=== PATIENT | female | born 1965 | race Two or more races ===

== ENCOUNTER → 2020-09-22 10:05 | Outpatient (BNVA) | payer MEDICAID, SELFPAY | PROVIDERS: PCP Internal Medicine; Visit Provider Anesthesiology | DX: M96.1 Postlaminectomy syndrome, not elsewhere classified (principal); M51.36 Other intervertebral disc degeneration, lumbar region; M47.27 Other spondylosis with radiculopathy, lumbosacral region; Z79.891 Long term (current) use of opiate analgesic | CPT/HCPCS: 99214 ==

== ENCOUNTER 2020-10-31 09:05 | Outpatient (REF) | payer MEDICAID, SELFPAY ==
--- NOTE | 2020-10-31 09:20 | XR_ITS ---
EXAMINATION: XR SHOULDER, LEFT CLINICAL INFORMATION: Left shoulder pain COMPARISON: None TECHNIQUE: The left shoulder is imaged in 4 views. FINDINGS: There is no fracture, dislocation, or destructive process. The acromioclavicular alignment is normal. The glenohumeral joint is unremarkable. There are no visible rotator cuff calcifications. There are mild degenerative changes acromioclavicular joint. XR/XR shoulder LT min 2V IMPRESSION: Mild degenerative changes acromioclavicular joint.
== END 2020-10-31 09:06 | disposition home or self-care (01) ==
LOC: HO.XRAY 09:05
PROVIDERS: PCP Family Medicine; Visit Provider Family Medicine
DX: M25.512 Pain in left shoulder (principal)
CPT/HCPCS: 73030

== ENCOUNTER → 2020-11-02 09:30 | Outpatient (BNVA) | payer MEDICAID, SELFPAY | PROVIDERS: PCP Family Medicine; Visit Provider Anesthesiology | DX: M96.1 Postlaminectomy syndrome, not elsewhere classified (principal); M51.36 Other intervertebral disc degeneration, lumbar region; M47.27 Other spondylosis with radiculopathy, lumbosacral region; Z79.891 Long term (current) use of opiate analgesic | CPT/HCPCS: 99212 ==

== ENCOUNTER 2020-12-21 08:56 | Outpatient (REF) | payer MEDICAID, SELFPAY ==
--- NOTE | 2020-12-21 09:15 | EMG_ITS ---
HISTORY OF PRESENT ILLNESS: This is a 55-year-old woman with bilateral hand pain and numbness for many years, mostly pain. She is currently on no medications. PHYSICAL EXAMINATION: On examination, she is alert and oriented with normal intellectual functions. Cranial nerves II through XII are normal. Muscle tone and strength are normal in all 4 extremities. Deep tendon reflexes symmetrical, 2+ plantar responses flexor. No Tinel or Phalen sign. IMPRESSION: Rule out carpal tunnel syndrome, rule out cervical radiculopathy. Nerve conduction EMG study: Normal electrodiagnostic study of the left upper extremity with no evidence of carpal tunnel syndrome or nerve entrapment. Normal EMG of the left C5-T1 innervated muscles. MD BEV Chaudhary/DARA / [id number]
== END 2020-12-21 08:57 | disposition home or self-care (01) ==
LOC: HO.NEURO 08:56
PROVIDERS: PCP Family Medicine; Visit Provider Family Medicine
DX: M25.512 Pain in left shoulder (principal)
CPT/HCPCS: 95886; 95910

== ENCOUNTER → 2021-05-25 10:02 | Outpatient (BNVA) | payer MEDICAID, SELFPAY | PROVIDERS: PCP Family Medicine; Visit Provider Urology | DX: R32 Unspecified urinary incontinence (principal) | CPT/HCPCS: 99202 ==

== ENCOUNTER → 2022-01-31 12:56 | Outpatient (BNVA) | payer MEDICAID, SELFPAY | PROVIDERS: PCP Family Medicine; Visit Provider Anesthesiology | DX: M96.1 Postlaminectomy syndrome, not elsewhere classified (principal); M51.36 Other intervertebral disc degeneration, lumbar region; M47.27 Other spondylosis with radiculopathy, lumbosacral region; M19.019 Primary osteoarthritis, unspecified shoulder | CPT/HCPCS: 99212 ==

== ENCOUNTER → 2022-05-29 15:29 | Outpatient (BNVA) | payer MEDICAID, SELFPAY | PROVIDERS: PCP Family Medicine; Visit Provider Surgery Vascular Surgery | DX: I83.12 Varicose veins of left lower extremity with inflammation (principal) | CPT/HCPCS: 99202 ==

== ENCOUNTER 2022-07-23 12:54 | Outpatient (REF) | payer MEDICAID, SELFPAY ==
--- NOTE | ~2022-07-23 | US_ITS ---
EXAMINATION: US LOWER EXTREMITY VENOUS (REFLUX EXAM), BILATERAL CLINICAL INDICATION: Chronic venous insufficiency with varicose veins COMPARISON: None. TECHNIQUE: Color flow triplex imaging and compression Doppler was performed to evaluate both the deep and the superficial systems bilaterally. To evaluate the superficial system, the examination was performed in the upright position. Color-flow Doppler ultrasound and compression ultrasound were utilized. In addition, maneuvers were utilized to demonstrate reflux. FINDINGS: 1. DEEP VENOUS ULTRASOUND OF THE RIGHT LOWER EXTREMITY: Common Femoral Vein: Compressible, normal respiratory variation and augmented flow. Femoral Vein: Compressible, normal color flow and augmentation. Popliteal Vein: Compressible, normal augmentation. Deep Reflux: There is no evidence of reflux in the deep system in either the common femoral vein or the popliteal vein. There is no evidence of a Lakhani's cyst. 2. SUPERFICIAL ULTRASOUND WITH DOPPLER OF RIGHT LOWER EXTREMITY: GREAT SAPHENOUS VEIN: Saphenofemoral Junction: 0.5 cm; Reflux: 0 ms Proximal Thigh: 0.4 cm; Reflux: 0 ms Mid Thigh: 0.4 cm; Reflux: 3000 ms Above Knee: 0.3 cm; Reflux: 0 ms At Knee: 0.3 cm; Reflux: 0 ms Below Knee: 0.5 cm; Reflux: 1552 ms Mid Calf: 0.2 cm; Reflux: 0 ms Ankle: 0.2 cm; Reflux: 0 ms DUPLICATED MEDIAL GREAT SAPHENOUS VEIN: Diameter: None Imaged Reflux: NA DUPLICATED LATERAL GREAT SAPHENOUS VEIN: Diameter: 0.3 Reflux: 3108 SMALL SAPHENOUS VEIN: Proximal: 0.2 cm; Reflux: 0 ms Distal: 0.3 cm; Reflux: 0 ms VEIN OF GIACOMINI: None Imaged. PERFORATORS: Location: Thigh and calf Size: 0.2 cm Reflux: None VARICOSITIES: Location: Thigh and calf Size: Ranging from 0.1 to 0.3 cm Reflux: Greater than 3000 ms 3. DEEP VENOUS ULTRASOUND OF THE LEFT LOWER EXTREMITY: Common Femoral Vein: Compressible, normal respiratory variation and augmented flow. Femoral Vein: Compressible, normal color flow and augmentation. Popliteal Vein: Chronic wall adherent calcification consistent with prior thrombosis with near complete compression. No acute thrombus seen Deep Reflux: There is no evidence of reflux in the deep system in either the common femoral vein or the popliteal vein. There is no evidence of a Lakhani's cyst. 4. SUPERFICIAL ULTRASOUND WITH DOPPLER OF LEFT LOWER EXTREMITY: GREAT SAPHENOUS VEIN: Saphenofemoral Junction: 0.6 cm; Reflux: 0 ms Proximal Thigh: 0.3 cm; Reflux: 0 ms Mid Thigh: 0.4 cm; Reflux: 3068 ms Above Knee: 0.4 cm; Reflux: 3280 ms At Knee: 0.2 cm; Reflux: 0 ms Below Knee: 0.1 cm; Reflux: 808 ms Mid Calf: 0.1 cm; Reflux: 0 ms Ankle: 0.1 cm; Reflux: 0 ms DUPLICATED MEDIAL GREAT SAPHENOUS VEIN: Diameter: None Imaged Reflux: NA DUPLICATED LATERAL GREAT SAPHENOUS VEIN: Diameter: 0.2 cm Reflux: None SMALL SAPHENOUS VEIN: Proximal: 0.1 cm; Reflux: 0 ms Distal: 0.3 cm; Reflux: 0 ms VEIN OF GIACOMINI: None Imaged. PERFORATORS: Location: Thigh and calf Size: 0.2 cm Reflux: None VARICOSITIES: Location: Saphenofemoral junction, thigh and knee Size: Ranging from 0.4 to 0.6 cm Reflux: All greater than 3000 ms US/US venous duplex LE BI IMPRESSION: Right: Focal segmental reflux in the right great saphenous vein at the mid to thigh and below knee calf. Severe reflux in a lateral duplicated great saphenous vein. Scattered varicosities in the thigh and calf with severe reflux Left: Segmental reflux in the left great saphenous vein in the thigh and below knee calf. Multiple varicosities in the thigh and calf with severe reflux. Note is made of wall calcifications in the left popliteal vein likely from a prior thrombosis. No acute deep venous thrombosis seen
== END 2022-07-23 12:55 | disposition home or self-care (01) ==
LOC: HO.US 12:54
PROVIDERS: Visit Provider Surgery Vascular Surgery
DX: I83.12 Varicose veins of left lower extremity with inflammation (principal)
CPT/HCPCS: 93970

== ENCOUNTER → 2022-07-31 11:48 | Outpatient (BNVA) | payer MEDICAID, SELFPAY | PROVIDERS: PCP Family Medicine; Visit Provider Surgery Vascular Surgery | DX: I83.12 Varicose veins of left lower extremity with inflammation (principal) | CPT/HCPCS: 99212 ==

== ENCOUNTER → 2022-08-24 09:26 | Outpatient (BNVA) | payer MEDICAID, SELFPAY | PROVIDERS: PCP Family Medicine; Visit Provider Surgery Vascular Surgery | DX: I83.12 Varicose veins of left lower extremity with inflammation (principal) | CPT/HCPCS: 36482 ==

== ENCOUNTER 2022-08-27 10:05 | Outpatient (REF) | payer MEDICAID, SELFPAY ==
--- NOTE | ~2022-08-27 | US_ITS ---
EXAMINATION: TRIPLEX SCANNING OF LEFT LOWER EXTREMITY; SUPERFICIAL ULTRASOUND WITH DOPPLER OF LEFT LOWER EXTREMITY CLINICAL INFORMATION: Status post Venaseal of the left great saphenous vein COMPARISON: 07/23/2022. TECHNIQUE: Color flow triplex imaging and compression Doppler were performed as well as superficial ultrasound with Doppler. FINDINGS: LEFT LOWER EXTREMITY DEEP VENOUS SYSTEM: Respiratory variation, normal compression and augmented flow are noted throughout the lower extremity. The visualized common femoral vein, femoral vein, profunda femoral vein, popliteal vein and the calf veins show no evidence of deep venous thrombosis. There is no evidence of Lakhani's cyst. SUPERFICIAL VENOUS SYSTEM: The great saphenous vein is occluded from the access site to 1.5 cm before the saphenofemoral junction. There is no extension of thrombus into the deep system. There is a nest of subcutaneous varicosities in the left groin which are patent. US/US venous duplex LE LT IMPRESSION: 1. No evidence of DVT. 2. Excellent appearance status post ablation of the left great saphenous vein. 3. Subcutaneous varicosities in the left groin which are patent
== END 2022-08-27 10:06 | disposition home or self-care (01) ==
LOC: HO.US 10:05
PROVIDERS: Visit Provider Surgery Vascular Surgery
DX: M79.605 Pain in left leg (principal)
CPT/HCPCS: 93971

== ENCOUNTER → 2022-09-06 13:52 | Outpatient (BNVA) | payer MEDICAID, SELFPAY | PROVIDERS: PCP Family Medicine; Visit Provider Surgery Vascular Surgery | DX: I83.11 Varicose veins of right lower extremity with inflammation (principal); I83.12 Varicose veins of left lower extremity with inflammation | CPT/HCPCS: 99212 ==

== ENCOUNTER 2022-09-26 17:13 | Outpatient (REF) | payer MEDICAID, SELFPAY ==
--- NOTE | ~2022-09-26 | MR_ITS ---
EXAMINATION: MR LUMBAR SPINE WITHOUT CONTRAST CLINICAL INFORMATION: Lower back and left leg pain COMPARISON: MRI lumbar spine 04/18/2020 TECHNIQUE: MRI of the lumbar spine was obtained using routine sequences without contrast. FINDINGS: Significantly motion degraded exam Left convex curvature of the lumbar spine. No suspicious marrow signal or focal osseous lesion. Endplate marrow edema from L2-L3 to L4-L5, worst and predominantly left-sided at L4-L5. The vertebral body heights are maintained. Degenerative disc desiccation and height loss from L2-L3 to L4-L5 appears similar to prior. The conus medullaris terminates at the level of T12-L1. The distal spinal cord is normal in appearance. The cauda equina nerve roots appear normal. No significant abnormalities of the paraspinal musculature.. Limited evaluation of the intra-abdominal structures without significant abnormalities. The abdominal aorta is of normal contour and caliber. SPINAL LEVELS: L1-L2: No significant spinal canal or neuroforaminal narrowing. L2-L3: Right eccentric disc bulge, moderate facet arthropathy, and ligamentum flavum thickening. Stable mild spinal canal and neural foraminal narrowing. L3-L4: Diffuse disc bulge with superimposed right subarticular extrusion with slight caudal migration which results in right greater than left subarticular zone narrowing and mass effect on the L4 nerve roots. Moderate facet arthropathy and ligamentum flavum thickening. Stable mild central spinal canal stenosis and moderate right and mild left neural foraminal narrowing with impingement of the right L3 nerve root. L4-L5: Postsurgical changes from left hemilaminectomy. Disc bulge and moderate left greater than right facet arthropathy. No significant central spinal canal stenosis. Stable left greater than right subarticular zone narrowing and moderate bilateral neural foraminal narrowing. L5-S1: Shallow disc bulge. Severe facet arthropathy. Ligamentum flavum thickening. No significant spinal canal stenosis. Stable moderate left neural foraminal narrowing MR/MR lumbar spine wo con IMPRESSION: Within the limitations of motion, multilevel lumbar spondylosis appears stable compared to MRI from 04/18/2020. There is mild spinal canal stenosis at L2-L3 and L3-L4 and multilevel mild to moderate neural foraminal narrowing and subarticular zone narrowing as described above.
== END 2022-09-26 17:14 | disposition home or self-care (01) ==
LOC: HO.MRI 17:13
PROVIDERS: Visit Provider Family Medicine
DX: M54.10 Radiculopathy, site unspecified (principal)
CPT/HCPCS: 72148

== ENCOUNTER 2022-10-03 15:42 | Outpatient (REF) | payer MEDICAID, SELFPAY ==
--- NOTE | ~2022-10-03 | XR_ITS ---
EXAMINATION: XR HIP, LEFT CLINICAL INFORMATION: Left hip osteoarthritis COMPARISON: None TECHNIQUE: Two views of the left hip and one view of the pelvis. FINDINGS: There is mild left hip arthritis with joint space narrowing and osteophyte formation. No fracture. Mild arthritis at the right hip joint. Bones of the pelvis are normal. There are degenerative changes of lower lumbar spine. XR/XR hip LT w PEL1V IMPRESSION: Mild bilateral hip arthritis. Degenerative changes visualized lower lumbar spine.
== END 2022-10-03 15:43 | disposition home or self-care (01) ==
LOC: HO.XRAY 15:42
PROVIDERS: PCP Family Medicine; Visit Provider Anesthesiology
DX: M46.1 Sacroiliitis, not elsewhere classified (principal); M16.12 Unilateral primary osteoarthritis, left hip; M96.1 Postlaminectomy syndrome, not elsewhere classified; M51.36 Other intervertebral disc degeneration, lumbar region; M47.27 Other spondylosis with radiculopathy, lumbosacral region; M19.019 Primary osteoarthritis, unspecified shoulder
CPT/HCPCS: 73502; 99212

== ENCOUNTER 2022-10-17 11:42 | Emergency (ER) | payer MEDICAID, SELFPAY ==
--- NOTE | ~2022-10-17 | XR_ITS ---
EXAMINATION: XR CHEST CLINICAL INFORMATION: Shortness of breath. COMPARISON: 06/02/2020 chest radiograph. TECHNIQUE: Frontal view of the chest was obtained. FINDINGS: No significant abnormality is noted involving the heart, lungs, mediastinum, bony thorax or soft tissues. XR/XR chest 1V IMPRESSION: No acute cardiopulmonary process.
[2022-10-17 12:05] VITALS: BP 108/87; PULSE 114; RESP 18; TEMP 36.3; O2SAT 98; BMI 30.2
--- NOTE | 2022-10-17 12:08 | ECG_ITS ---
Test Reason : PALPITATIONS Blood Pressure : / mmHG Vent. Rate : 113 BPM Atrial Rate : 113 BPM P-R Int : 132 ms QRS Dur : 070 ms QT Int : 302 ms P-R-T Axes : -11 042 041 degrees QTc Int : 414 ms Sinus tachycardia with premature ventricular or aberrantly conducted complexes Borderline ECG When compared with ECG of 10-JUN-2020 09:05, Premature supraventricular complexes are now Present Vent. rate has increased BY 52 BPM Referred By: Britany Bolanos Electronically Signed By:MORRIS VORA MD
--- NOTE | 2022-10-17 12:14 | ED.ARRPALP ---
HPI - Arrhythmia/Palpitations General Chief Complaint: Arrhythmia/Palpitations <Britany Bolanos MD - Last Filed: 10/17/22 12:14> Stated Complaint: High Heart rate. sent from doctors <Britany Bolanos MD - Last Filed: 10/17/22 12:14> Time Seen by Provider: 10/17/22 13:02 <Britany Bolanos MD - Last Filed: 10/17/22 12:14> Source: patient <KORTNEY Cruz - Last Filed: 10/17/22 16:42> Mode of arrival: ambulatory <KORTNEY Cruz - Last Filed: 10/17/22 16:42> Limitations: no limitations <KORTNEY Cruz Last Filed: 10/17/22 16:42> History of Present Illness HPI narrative: Patient is a 56 year old assigned female at with a history of varicose veins presenting to the emergency department today with palpitations and shortness of breath. Patient states that she began having chest pain with palpitations and shortness of breath starting earlier today. Patient denies any dizziness, lightheadedness, abdominal pain, nausea, vomiting, fever, chills, blurry vision, double vision, loss of vision, back pain, night sweats, pain with urination, increased urinary frequency, increased urinary urgency, blood in her urine or stool, syncope or a near syncopal episode, recent trauma or falls, bowel incontinence, bladder incontinence, bowel retention, bladder retention, or any other complaints at this time. <KORTNEY Cruz - Last Filed: 10/17/22 16:42> complaint: palpitations <KORTNEY Cruz - Last Filed: 10/17/22 16:42> Onset (ago): hour(s) <KORTNEY Cruz Last Filed: 10/17/22 16:42> Duration: constant <KORTNEY Cruz Last Filed: 10/17/22 16:42> Severity: mild <KORTNEY Cruz Last Filed: 10/17/22 16:42> Context: occurred during rest <KORTNEY Cruz Last Filed: 10/17/22 16:42> Related Data Home Medications: Home Medications Medication Instructions Recorded Confirmed duloxetine 60 mg capsule,delayed 60 mg PO DAILY 09/22/20 09/22/20 release lidocaine 4 % topical patch 1 patch topical DAILY PRN 09/22/20 09/22/20 mirtazapine 7.5 mg tablet 7.5 mg PO BEDTIME 09/22/20 09/22/20 albuterol sulfate 90 mcg/actuation 2 puff inhalation Q6H PRN dyspnea 01/31/22 aerosol inhaler (ProAir HFA) amlodipine 5 mg tablet 5 mg PO QAM 01/31/22 buspirone 15 mg tablet 15 mg PO TID 01/31/22 docusate sodium 100 mg capsule 100 mg PO BID 01/31/22 famotidine 40 mg tablet 40 mg PO BEDTIME 01/31/22 mirtazapine 30 mg tablet 30 mg PO BEDTIME insomnia 01/31/22 multivitamin 1 tab PO QAM 01/31/22 nortriptyline 75 mg capsule 75 mg PO TID PRN pain 01/31/22 pantoprazole 40 mg tablet,delayed 40 mg PO 01/31/22 release sertraline 50 mg tablet 50 mg PO QAM depressive disorder 01/31/22 simethicone 180 mg capsule 180 mg PO DAILY PRN gas 01/31/22 tizanidine 4 mg tablet 4 mg PO Q6-8H PRN 01/31/22 tramadol 50 mg tablet 100 mg PO Q8H PRN severe pain 01/31/22 cyclobenzaprine 10 mg tablet 10 mg PO TID 10/17/22 gabapentin 300 mg capsule 300 mg PO TID 10/17/22 morphine 15 mg immediate release 15 mg PO Q6H PRN 10/17/22 tablet Previous Rx's Medication Instructions Recorded oxybutynin chloride 10 mg 10 mg PO DAILY 90 days #90 tabs 05/26/21 tablet,extended release 24 hr <Britany Bolanos MD - Last Filed: 10/17/22 12:14> Allergies/Adverse Reactions: Allergies Allergy/AdvReac Type Severity Reaction Status Date / Time ibuprofen [From MOTRIN] Allergy Unknown HIVES Verified 10/17/22 11:27 baclofen Allergy itchy Verified 10/17/22 11:27 hands/rash Motrin Allergy Unknown unknown Uncoded 10/17/22 11:27 <Britany Bolanos MD - Last Filed: 10/17/22 12:14> Review of Systems Constitutional: Constitutional: Reports no additional constitutional complaints, Denies chills, Denies fever(s) and Denies night sweats <KORTNEY Cruz - Last Filed: 10/17/22 16:42> Eyes: Eyes: Reports no additional eye complaints, Denies blurry vision, Denies change in vision, Denies diplopia, Denies eye discharge, Denies loss of vision and Denies eye pain <KORTNEY Cruz - Last Filed: 10/17/22 16:42> ENT: Denies dizziness <KORTNEY Cruz - Last Filed: 10/17/22 16:42> Cardiovascular: Cardiovascular: Reports no additional cardiovascular complaints, Denies chest pain, Denies lightheadedness, Denies Loss of Consciousness and Reports dyspnea <KORTNEY Cruz - Last Filed: 10/17/22 16:42> Respiratory: Respiratory: Reports no additional respiratory complaints and Reports dyspnea <KORTNEY Cruz - Last Filed: 10/17/22 16:42> Gastrointestinal: Gastrointestinal: Reports no additional gastrointestinal complaints, Denies abdominal pain, Denies melena, Denies hematochezia, Denies change in bowel habits and Denies change in stool character <KORTNEY Cruz - Last Filed: 10/17/22 16:42> Genitourinary: Genitourinary: Denies hematuria, Denies urinary frequency, Denies dysuria, Denies urinary incontinence, Denies urinary hesitancy and Denies urinary urgency <KORTNEY Cruz - Last Filed: 10/17/22 16:42> Musculoskeletal: Musculoskeletal: Reports no additional musculoskeletal complaints, Denies numbness and Denies tingling <KORTNEY Cruz - Last Filed: 10/17/22 16:42> Neurologic: Denies dizziness, Denies loss of vision, Denies numbness and Denies tingling <KORTNEY Cruz - Last Filed: 10/17/22 16:42> Psychiatric: Psychiatric: Reports no additional psychiatric complaints <KORTNEY Cruz - Last Filed: 10/17/22 16:42> Endocrine: Endocrine: Reports no additional endocrine complaints <KORTNEY Cruz - Last Filed: 10/17/22 16:42> Hematologic/Lymphatic: Hematologic/Lymphatic: Reports no additional hematologic/lymphatic complaints <KORTNEY Cruz - Last Filed: 10/17/22 16:42> Allergic/Immunologic: Allergic/Immunologic: Reports no additional allergic/immunologic complaints <KORTNEY Cruz - Last Filed: 10/17/22 16:42> [facility] Past Medical History Attestation statement: The following information was validated with the patient. <KORTNEY Cruz - Last Filed: 10/17/22 16:42> Source: old records reviewed <KORTNEY Cruz - Last Filed: 10/17/22 16:42> Medical History: Medical History Disc degeneration, lumbar [facility] (current) use of opiate analgesic Postlaminectomy syndrome Spondylosis of lumbosacral spine with radiculopathy <Britany Bolanos MD - Last Filed: 10/17/22 12:14> Surgical History: Surgical History History of appendectomy History of hysterectomy <Britany Bolanos MD - Last Filed: 10/17/22 12:14> Family History Family History: Family History Mother Breast cancer Thyroid disease Hypotension Father Asthma Emphysema lung <Britany Bolanos MD - Last Filed: 10/17/22 12:14> Social History Social History: Social History Alcohol intake: never Patient Tobacco Use Status: Current everyday Tobacco user Cigarettes Per Day: 3 Years Smoked: 20 +/- Smoked in Last 30 Days: Yes Use of substances other than those prescribed or required for medical reasons: No Advance Directives: No Advance Directives Information Provided: Yes <Britany Bolanos MD - Last Filed: 10/17/22 12:14> Physical Exam Vital Signs: Vital Signs: Last Vital Signs Temp 99.0 F 10/17/22 15:37 Pulse 105 H 10/17/22 16:22 Resp 17 10/17/22 16:22 BP 119/62 10/17/22 16:22 Pulse Ox 98 10/17/22 15:37 O2 Del Method 10/17/22 15:37 BMI result Body Mass Index 30.2 <Britany Bolanos MD - Last Filed: 10/17/22 12:14> Vital Signs: Last Vital Signs Temp 99.0 F 10/17/22 15:37 Pulse 105 H 10/17/22 16:22 Resp 17 10/17/22 16:22 BP 119/62 10/17/22 16:22 Pulse Ox 98 10/17/22 15:37 O2 Del Method 10/17/22 15:37 BMI result Body Mass Index 30.2 <KORTNEY Cruz - Last Filed: 10/17/22 16:42> Const: General: cooperative, no acute distress, alert and awake <KORTNEY Cruz - Last Filed: 10/17/22 16:42> Nutritional Appearance: well nourished <KORTNEY Cruz - Last Filed: 10/17/22 16:42> Orientation/consciousness: patient oriented x3 <KORTNEY Cruz - Last Filed: 10/17/22 16:42> Limitations: no limitations <KORTNEY Cruz - Last Filed: 10/17/22 16:42> HEENT: Head: Yes normal to inspection and Yes atraumatic <KORTNEY Cruz - Last Filed: 10/17/22 16:42> Ears: hearing grossly normal bilaterally and external ears normal <KORTNEY Cruz - Last Filed: 10/17/22 16:42> General nose exam: Normal external nose present, no nasal discharge noted and no epistaxis <KORTNEY Cruz - Last Filed: 10/17/22 16:42> Face and sinus: Yes normal facial exam, No abrasion and No laceration <KORTNEY Cruz - Last Filed: 10/17/22 16:42> Mouth: Normal oral and palatal mucosa present, no drooling and no muffled voice <KORTNEY Cruz - Last Filed: 10/17/22 16:42> Eyes: General: appearance normal, both eyes and all related structures <KORTNEY Cruz - Last Filed: 10/17/22 16:42> Periorbital: periorbital findings normal <KORTNEY Cruz - Last Filed: 10/17/22 16:42> Eyelids: Yes eyelids normal <Merary Cheung PA - Last Filed: 10/17/22 16:42> Conjunctivae: conjunctivae normal <Merary Cheung PA - Last Filed: 10/17/22 16:42> Pupils: Equal, round and reactive pupils present <Merary Cheung PA - Last Filed: 10/17/22 16:42> EOM: EOMs intact bilaterally <Merary Cheung PA - Last Filed: 10/17/22 16:42> Neck: Neck: Yes normal visual inspection, Yes full ROM and Yes no lymphadenopathy <Merary Cheung PA - Last Filed: 10/17/22 16:42> Chest: Chest palpation & inspection: normal inspection of the chest <Merary Cheung PA - Last Filed: 10/17/22 16:42> Resp: Effort & Inspection: normal respiratory effort and able to speak in complete sentences <Merary Cheung PA - Last Filed: 10/17/22 16:42> Auscultation: clear to auscultation bilaterally <Merary Cheung PA - Last Filed: 10/17/22 16:42> Cardio: Rate: tachycardic <Merary Cheung PA - Last Filed: 10/17/22 16:42> Rhythm: regular rhythm <Merary Cheung PA - Last Filed: 10/17/22 16:42> GI: Inspection: Yes normal to inspection <Merary Cheung PA - Last Filed: 10/17/22 16:42> Neuro: General: patient oriented x3 and moves all extremities <Merary Cheung PA - Last Filed: 10/17/22 16:42> Cranial nerves: Yes Equal, round and reactive pupils present <Merary Cheung PA - Last Filed: 10/17/22 16:42> Cognition (Neuro): normal cognition <Merary Cheung PA - Last Filed: 10/17/22 16:42> Motor exam (neuro): 5/5 motor strength present throughout <Merary Cheung PA - Last Filed: 10/17/22 16:42> Sensory Exam: Normal double simultaneous stimulation for sensation <Merary Cheung PA - Last Filed: 10/17/22 16:42> Coordination: [id number] test normal <KORTNEY Cruz - Last Filed: 10/17/22 16:42> Extrem: General: Yes normal to inspection, Yes full ROM and Yes capillary refill normal <KORTNEY Cruz - Last Filed: 10/17/22 16:42> Psych: Appearance: grossly normal <KORTNEY Cruz - Last Filed: 10/17/22 16:42> Mental Status: mental status grossly normal <KORTNEY Cruz - Last Filed: 10/17/22 16:42> Affect: normal affect <KORTNEY Cruz - Last Filed: 10/17/22 16:42> Attitude: cooperative <KORTNEY Cruz - Last Filed: 10/17/22 16:42> Thought process: Normal thought process present <KORTNEY Cruz - Last Filed: 10/17/22 16:42> Thought content: Normal thought content present <KORTNEY Cruz - Last Filed: 10/17/22 16:42> Insight: Good insight present (Psych) <KORTNEY Cruz - Last Filed: 10/17/22 16:42> Course Reevaluation(s) Reevaluation #1: Sent from Office for evaluation of dizziness and palpitation. <Birtany Bolanos MD - Last Filed: 10/17/22 12:14> Time: 12:14 <Britany Bolanos MD - Last Filed: 10/17/22 12:14> Medications Administered Discontinued Medications Generic Name Dose Route Start Last Admin Trade Name Freq PRN Reason Stop Dose Admin Sodium Chloride 1,000 mls @ 999 mls/hr 10/17/22 15:30 10/17/22 16:19 Ns IV 10/17/22 16:30 999 mls/hr .Q1H1M HANG Administration <Britany Bolanos MD - Last Filed: 10/17/22 12:14> Medications Administered Discontinued Medications Generic Name Dose Route Start Last Admin Trade Name Freq PRN Reason Stop Dose Admin Sodium Chloride 1,000 mls @ 999 mls/hr 10/17/22 15:30 10/17/22 16:19 Ns IV 10/17/22 16:30 999 mls/hr .Q1H1M HANG Administration <KORTNEY Cruz - Last Filed: 10/17/22 16:42> MDM - Arrhythmia/Palpitations MDM Narrative Medical decision making narrative: Patient is a 56 year old assigned female at with a history of vericose veins presenting to the emergency department today with chest, palpitations, and intermittent SOB. Patient's physical exam showed mild tachycardia but was otherwise unremarkable. Patient's blood work was unremarkable including a negative troponin and normal d dimer. Patient's urine showed no acute process. Patient's EKG was unremarkable. Patient's chest x-ray showed no acute process. Patient is on 15 mg of morphine at home for chronic arthritic pain and during her stay here, she began to have an arthritic flare. Patient was given 1mg of diluadid. I explained my physical exam findings as well as all test results to the patient. I answered all questions asked by the patient. I stressed the importance of the patient taking her medication as prescribed. 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 I stressed the importance of the patient returning to the emergency department immediately if her symptoms were to worsen or if she were to develop any dizziness, shortness of breath, difficulty breathing, chest pain, blurry vision, loss of vision, nausea, vomiting, abdominal pain, fever, chills, back pain, or any other complaints. Patient verbalized agreement and understanding with this treatment plan and discharge. <KORTNEY Cruz - Last Filed: 10/17/22 16:42> Medical Records Attestation: I reviewed the patient's medical records. <KORTNEY Crzu - Last Filed: 10/17/22 16:42> Lab Data Attestation: I reviewed the patient's lab results. <KORTNEY Cruz - Last Filed: 10/17/22 16:42> Result diagrams: : 10/17/22 13:47 10/17/22 13:47 <Britany Bolanos MD - Last Filed: 10/17/22 12:14> Labs: Lab Results 10/17/22 10/17/22 10/17/22 Range/Units 13:47 13:47 13:47 WBC 6.8 (4.8-10.8) X10*3/uL RBC 4.65 (4.20-5.50) X10*6/uL Hgb 12.8 (12.0-16.0) g/dl Hct 40.8 (37.0-47.0) % MCV 87.7 (80.0-98.0) fL MCH 27.5 (27.0-33.0) pg MCHC 31.4 (31.0-35.0) g/dl RDW 13.6 (11.0-16.0) % Plt Count 422 H (160-400) X10*3/uL MPV 9.4 (9.4-12.3) fL Immature Gran % (Auto) 0.3 (0.0-0.4) % Neut % (Auto) 68.6 (45-73) % Lymph % (Auto) 20.4 (20-40) % [place] % (Auto) 6.8 (2-11) % Eos % (Auto) 3.5 (0-4) % Baso % (Auto) 0.4 (0-2) % Lymph # (Auto) 1.4 (1.2-4.9) X10*3/uL [place] # (Auto) 0.5 (0.1-1.2) X10*3/uL Eos # (Auto) 0.2 (0.0-0.4) X10*3/uL Baso # (Auto) 0.0 (0.0-0.2) X10*3/uL Abs Immat Gran (auto) 0.02 (0.00-0.03) X10*3/uL Absolute Neuts (auto) 4.6 (2.0-8.3) x10*3/uL Absolute Nucleated RBC 0.000 (0.0-0.012) X10*3/uL Nucleated RBC % (auto) 0.0 (0.0-0.2) /100WBC D-Dimer High Sensitivty NG/ML Sodium 140 (135-145) mmol/L Potassium 4.6 (3.3-5.1) mmol/L Chloride 102 (96-108) mmol/L Carbon Dioxide 30 H (22-29) mmol/L Anion Gap 13 (12-20) BUN 7 L (9-16) mg/dL Creatinine 0.79 (0.5-1.4) mg/dL Estim Creat Clear Calc 79.3 Estimated GFR > 60 Random Glucose 90 (60-115) mg/dL Calcium 9.3 (8.4-10.2) mg/dL Total Bilirubin 0.3 (0.0-1.0) mg/dL Direct Bilirubin < 0.2 (0.0-0.5) mg/dL AST 17 (5-31) U/L ALT 14 (0-31) U/L Alkaline Phosphatase 97 (39-117) U/L Troponin I High Sens < 3.5 (<3.5-17.0) ng/L B-Natriuretic Peptide (<100) pg/mL Total Protein 7.0 (6.5-8.0) g/dL Albumin 4.0 (3.5-5.0) g/dL Lipase 9 (8-78) U/L Urine Color Urine Appearance Urine pH (5.0-9.0) Ur Specific Nichols (1.005-1.025) Urine Protein (Neg-Trace) mg/dL Urine Glucose (UA) (Negative) mg/dL Urine Ketones (Negative) mg/dL Urine Blood (Negative) Urine Nitrite (Negative) Ur Leukocyte Esterase (Negative) Urine RBC (0-2) /HPF Urine WBC (0-5) /HPF Ur Squamous Epith Cells (0-2) /HPF Urine Bacteria (None Seen) Hyaline Casts (0-2) /LPF Influenza Type A (PCR) (Negative) Influenza Type B (PCR) (Negative) RSV RNA Qual (PCR) (Negative) SARS-CoV-2 RNA (RT-PCR) (Negative) 10/17/22 10/17/22 10/17/22 Range/Units 13:47 13:47 13:49 WBC (4.8-10.8) X10*3/uL RBC (4.20-5.50) X10*6/uL Hgb (12.0-16.0) g/dl Hct (37.0-47.0) % MCV (80.0-98.0) fL MCH (27.0-33.0) pg MCHC (31.0-35.0) g/dl RDW (11.0-16.0) % Plt Count (160-400) X10*3/uL MPV (9.4-12.3) fL Immature Gran % (Auto) (0.0-0.4) % Neut % (Auto) (45-73) % Lymph % (Auto) (20-40) % [place] % (Auto) (2-11) % Eos % (Auto) (0-4) % Baso % (Auto) (0-2) % Lymph # (Auto) (1.2-4.9) X10*3/uL [place] # (Auto) (0.1-1.2) X10*3/uL Eos # (Auto) (0.0-0.4) X10*3/uL Baso # (Auto) (0.0-0.2) X10*3/uL Abs Immat Gran (auto) (0.00-0.03) X10*3/uL Absolute Neuts (auto) (2.0-8.3) x10*3/uL Absolute Nucleated RBC (0.0-0.012) X10*3/uL Nucleated RBC % (auto) (0.0-0.2) /100WBC D-Dimer High Sensitivty NG/ML Sodium (135-145) mmol/L Potassium (3.3-5.1) mmol/L Chloride (96-108) mmol/L Carbon Dioxide (22-29) mmol/L Anion Gap (12-20) BUN (9-16) mg/dL Creatinine (0.5-1.4) mg/dL Estim Creat Clear Calc Estimated GFR Random Glucose (60-115) mg/dL Calcium (8.4-10.2) mg/dL Total Bilirubin (0.0-1.0) mg/dL Direct Bilirubin (0.0-0.5) mg/dL AST (5-31) U/L ALT (0-31) U/L Alkaline Phosphatase (39-117) U/L Troponin I High Sens (<3.5-17.0) ng/L B-Natriuretic Peptide 21 (<100) pg/mL Total Protein (6.5-8.0) g/dL Albumin (3.5-5.0) g/dL Lipase (8-78) U/L Urine Color Yellow Urine Appearance Clear Urine pH 8.0 (5.0-9.0) Ur Specific Nichols 1.010 (1.005-1.025) Urine Protein Negative (Neg-Trace) mg/dL Urine Glucose (UA) Negative (Negative) mg/dL Urine Ketones Negative (Negative) mg/dL Urine Blood Negative (Negative) Urine Nitrite Negative (Negative) Ur Leukocyte Esterase Moderate (2+) H (Negative) Urine RBC 0-2 (0-2) /HPF Urine WBC 21-50 H (0-5) /HPF Ur Squamous Epith Cells 0-2 (0-2) /HPF Urine Bacteria Trace (None Seen) Hyaline Casts 0-2 (0-2) /LPF Influenza Type A (PCR) NEGATIVE (Negative) Influenza Type B (PCR) NEGATIVE (Negative) RSV RNA Qual (PCR) NEGATIVE (Negative) SARS-CoV-2 RNA (RT-PCR) NEGATIVE (Negative) 10/17/22 Range/Units 15:45 WBC (4.8-10.8) X10*3/uL RBC (4.20-5.50) X10*6/uL Hgb (12.0-16.0) g/dl Hct (37.0-47.0) % MCV (80.0-98.0) fL MCH (27.0-33.0) pg MCHC (31.0-35.0) g/dl RDW (11.0-16.0) % Plt Count (160-400) X10*3/uL MPV (9.4-12.3) fL Immature Gran % (Auto) (0.0-0.4) % Neut % (Auto) (45-73) % Lymph % (Auto) (20-40) % [place] % (Auto) (2-11) % Eos % (Auto) (0-4) % Baso % (Auto) (0-2) % Lymph # (Auto) (1.2-4.9) X10*3/uL [place] # (Auto) (0.1-1.2) X10*3/uL Eos # (Auto) (0.0-0.4) X10*3/uL Baso # (Auto) (0.0-0.2) X10*3/uL Abs Immat Gran (auto) (0.00-0.03) X10*3/uL Absolute Neuts (auto) (2.0-8.3) x10*3/uL Absolute Nucleated RBC (0.0-0.012) X10*3/uL Nucleated RBC % (auto) (0.0-0.2) /100WBC D-Dimer High Sensitivty 182 NG/ML Sodium (135-145) mmol/L Potassium (3.3-5.1) mmol/L Chloride (96-108) mmol/L Carbon Dioxide (22-29) mmol/L Anion Gap (12-20) BUN (9-16) mg/dL Creatinine (0.5-1.4) mg/dL Estim Creat Clear Calc Estimated GFR Random Glucose (60-115) mg/dL Calcium (8.4-10.2) mg/dL Total Bilirubin (0.0-1.0) mg/dL Direct Bilirubin (0.0-0.5) mg/dL AST (5-31) U/L ALT (0-31) U/L Alkaline Phosphatase (39-117) U/L Troponin I High Sens (<3.5-17.0) ng/L B-Natriuretic Peptide (<100) pg/mL Total Protein (6.5-8.0) g/dL Albumin (3.5-5.0) g/dL Lipase (8-78) U/L Urine Color Urine Appearance Urine pH (5.0-9.0) Ur Specific Nichols (1.005-1.025) Urine Protein (Neg-Trace) mg/dL Urine Glucose (UA) (Negative) mg/dL Urine Ketones (Negative) mg/dL Urine Blood (Negative) Urine Nitrite (Negative) Ur Leukocyte Esterase (Negative) Urine RBC (0-2) /HPF Urine WBC (0-5) /HPF Ur Squamous Epith Cells (0-2) /HPF Urine Bacteria (None Seen) Hyaline Casts (0-2) /LPF Influenza Type A (PCR) (Negative) Influenza Type B (PCR) (Negative) RSV RNA Qual (PCR) (Negative) SARS-CoV-2 RNA (RT-PCR) (Negative) <Britany Bolanos MD - Last Filed: 10/17/22 12:14> Lab Results 10/17/22 10/17/22 10/17/22 Range/Units 13:47 13:47 13:47 WBC 6.8 (4.8-10.8) X10*3/uL RBC 4.65 (4.20-5.50) X10*6/uL Hgb 12.8 (12.0-16.0) g/dl Hct 40.8 (37.0-47.0) % MCV 87.7 (80.0-98.0) fL MCH 27.5 (27.0-33.0) pg MCHC 31.4 (31.0-35.0) g/dl RDW 13.6 (11.0-16.0) % Plt Count 422 H (160-400) X10*3/uL MPV 9.4 (9.4-12.3) fL Immature Gran % (Auto) 0.3 (0.0-0.4) % Neut % (Auto) 68.6 (45-73) % Lymph % (Auto) 20.4 (20-40) % [place] % (Auto) 6.8 (2-11) % Eos % (Auto) 3.5 (0-4) % Baso % (Auto) 0.4 (0-2) % Lymph # (Auto) 1.4 (1.2-4.9) X10*3/uL [place] # (Auto) 0.5 (0.1-1.2) X10*3/uL Eos # (Auto) 0.2 (0.0-0.4) X10*3/uL Baso # (Auto) 0.0 (0.0-0.2) X10*3/uL Abs Immat Gran (auto) 0.02 (0.00-0.03) X10*3/uL Absolute Neuts (auto) 4.6 (2.0-8.3) x10*3/uL Absolute Nucleated RBC 0.000 (0.0-0.012) X10*3/uL Nucleated RBC % (auto) 0.0 (0.0-0.2) /100WBC D-Dimer High Sensitivty NG/ML Sodium 140 (135-145) mmol/L Potassium 4.6 (3.3-5.1) mmol/L Chloride 102 (96-108) mmol/L Carbon Dioxide 30 H (22-29) mmol/L Anion Gap 13 (12-20) BUN 7 L (9-16) mg/dL Creatinine 0.79 (0.5-1.4) mg/dL Estim Creat Clear Calc 79.3 Estimated GFR > 60 Random Glucose 90 (60-115) mg/dL Calcium 9.3 (8.4-10.2) mg/dL Total Bilirubin 0.3 (0.0-1.0) mg/dL Direct Bilirubin < 0.2 (0.0-0.5) mg/dL AST 17 (5-31) U/L ALT 14 (0-31) U/L Alkaline Phosphatase 97 (39-117) U/L Troponin I High Sens < 3.5 (<3.5-17.0) ng/L B-Natriuretic Peptide (<100) pg/mL Total Protein 7.0 (6.5-8.0) g/dL Albumin 4.0 (3.5-5.0) g/dL Lipase 9 (8-78) U/L Urine Color Urine Appearance Urine pH (5.0-9.0) Ur Specific [place] (1.005-1.025) Urine Protein (Neg-Trace) mg/dL Urine Glucose (UA) (Negative) mg/dL Urine Ketones (Negative) mg/dL Urine Blood (Negative) Urine Nitrite (Negative) Ur Leukocyte Esterase (Negative) Urine RBC (0-2) /HPF Urine WBC (0-5) /HPF Ur Squamous Epith Cells (0-2) /HPF Urine Bacteria (None Seen) Hyaline Casts (0-2) /LPF Influenza Type A (PCR) (Negative) Influenza Type B (PCR) (Negative) RSV RNA Qual (PCR) (Negative) SARS-CoV-2 RNA (RT-PCR) (Negative) 10/17/22 10/17/22 10/17/22 Range/Units 13:47 13:47 13:49 WBC (4.8-10.8) X10*3/uL RBC (4.20-5.50) X10*6/uL Hgb (12.0-16.0) g/dl Hct (37.0-47.0) % MCV (80.0-98.0) fL MCH (27.0-33.0) pg MCHC (31.0-35.0) g/dl RDW (11.0-16.0) % Plt Count (160-400) X10*3/uL MPV (9.4-12.3) fL Immature Gran % (Auto) (0.0-0.4) % Neut % (Auto) (45-73) % Lymph % (Auto) (20-40) % [place] % (Auto) (2-11) % Eos % (Auto) (0-4) % Baso % (Auto) (0-2) % Lymph # (Auto) (1.2-4.9) X10*3/uL [place] # (Auto) (0.1-1.2) X10*3/uL Eos # (Auto) (0.0-0.4) X10*3/uL Baso # (Auto) (0.0-0.2) X10*3/uL Abs Immat Gran (auto) (0.00-0.03) X10*3/uL Absolute Neuts (auto) (2.0-8.3) x10*3/uL Absolute Nucleated RBC (0.0-0.012) X10*3/uL Nucleated RBC % (auto) (0.0-0.2) /100WBC D-Dimer High Sensitivty NG/ML Sodium (135-145) mmol/L Potassium (3.3-5.1) mmol/L Chloride (96-108) mmol/L Carbon Dioxide (22-29) mmol/L Anion Gap (12-20) BUN (9-16) mg/dL Creatinine (0.5-1.4) mg/dL Estim Creat Clear Calc Estimated GFR Random Glucose (60-115) mg/dL Calcium (8.4-10.2) mg/dL Total Bilirubin (0.0-1.0) mg/dL Direct Bilirubin (0.0-0.5) mg/dL AST (5-31) U/L ALT (0-31) U/L Alkaline Phosphatase (39-117) U/L Troponin I High Sens (<3.5-17.0) ng/L B-Natriuretic Peptide 21 (<100) pg/mL Total Protein (6.5-8.0) g/dL Albumin (3.5-5.0) g/dL Lipase (8-78) U/L Urine Color Yellow Urine Appearance Clear Urine pH 8.0 (5.0-9.0) Ur Specific [place] 1.010 (1.005-1.025) Urine Protein Negative (Neg-Trace) mg/dL Urine Glucose (UA) Negative (Negative) mg/dL Urine Ketones Negative (Negative) mg/dL Urine Blood Negative (Negative) Urine Nitrite Negative (Negative) Ur Leukocyte Esterase Moderate (2+) H (Negative) Urine RBC 0-2 (0-2) /HPF Urine WBC 21-50 H (0-5) /HPF Ur Squamous Epith Cells 0-2 (0-2) /HPF Urine Bacteria Trace (None Seen) Hyaline Casts 0-2 (0-2) /LPF Influenza Type A (PCR) NEGATIVE (Negative) Influenza Type B (PCR) NEGATIVE (Negative) RSV RNA Qual (PCR) NEGATIVE (Negative) SARS-CoV-2 RNA (RT-PCR) NEGATIVE (Negative) 10/17/22 Range/Units 15:45 WBC (4.8-10.8) X10*3/uL RBC (4.20-5.50) X10*6/uL Hgb (12.0-16.0) g/dl Hct (37.0-47.0) % MCV (80.0-98.0) fL MCH (27.0-33.0) pg MCHC (31.0-35.0) g/dl RDW (11.0-16.0) % Plt Count (160-400) X10*3/uL MPV (9.4-12.3) fL Immature Gran % (Auto) (0.0-0.4) % Neut % (Auto) (45-73) % Lymph % (Auto) (20-40) % [place] % (Auto) (2-11) % Eos % (Auto) (0-4) % Baso % (Auto) (0-2) % Lymph # (Auto) (1.2-4.9) X10*3/uL [place] # (Auto) (0.1-1.2) X10*3/uL Eos # (Auto) (0.0-0.4) X10*3/uL Baso # (Auto) (0.0-0.2) X10*3/uL Abs Immat Gran (auto) (0.00-0.03) X10*3/uL Absolute Neuts (auto) (2.0-8.3) x10*3/uL Absolute Nucleated RBC (0.0-0.012) X10*3/uL Nucleated RBC % (auto) (0.0-0.2) /100WBC D-Dimer High Sensitivty 182 NG/ML Sodium (135-145) mmol/L Potassium (3.3-5.1) mmol/L Chloride (96-108) mmol/L Carbon Dioxide (22-29) mmol/L Anion Gap (12-20) BUN (9-16) mg/dL Creatinine (0.5-1.4) mg/dL Estim Creat Clear Calc Estimated GFR Random Glucose (60-115) mg/dL Calcium (8.4-10.2) mg/dL Total Bilirubin (0.0-1.0) mg/dL Direct Bilirubin (0.0-0.5) mg/dL AST (5-31) U/L ALT (0-31) U/L Alkaline Phosphatase (39-117) U/L Troponin I High Sens (<3.5-17.0) ng/L B-Natriuretic Peptide (<100) pg/mL Total Protein (6.5-8.0) g/dL Albumin (3.5-5.0) g/dL Lipase (8-78) U/L Urine Color Urine Appearance Urine pH (5.0-9.0) Ur Specific Nichols (1.005-1.025) Urine Protein (Neg-Trace) mg/dL Urine Glucose (UA) (Negative) mg/dL Urine Ketones (Negative) mg/dL Urine Blood (Negative) Urine Nitrite (Negative) Ur Leukocyte Esterase (Negative) Urine RBC (0-2) /HPF Urine WBC (0-5) /HPF Ur Squamous Epith Cells (0-2) /HPF Urine Bacteria (None Seen) Hyaline Casts (0-2) /LPF Influenza Type A (PCR) (Negative) Influenza Type B (PCR) (Negative) RSV RNA Qual (PCR) (Negative) SARS-CoV-2 RNA (RT-PCR) (Negative) <KORTNEY Cruz - Last Filed: 10/17/22 16:42> Imaging Data Chest x-ray: Attestation: I personally reviewed and interpreted this imaging study as follows: <KORTNEY Cruz - Last Filed: 10/17/22 16:42> My impression: No acute process. <KORTNEY Cruz - Last Filed: 10/17/22 16:42> Radiologist's impression: EXAMINATION: XR CHEST CLINICAL INFORMATION: Shortness of breath. COMPARISON: 06/02/2020 chest radiograph. TECHNIQUE: Frontal view of the chest was obtained. FINDINGS: No significant abnormality is noted involving the heart, lungs, mediastinum, bony thorax or soft tissues. XR/XR chest 1V IMPRESSION: No acute cardiopulmonary process. Dictated By: Oh Parker MD Signed By: Electronically signed by Oh Parker MD 10/17/22 1229 <KORTNEY Cruz - Last Filed: 10/17/22 16:42> ECG Data Attestation: I personally reviewed and interpreted this ECG as follows: <KORTNEY Cruz - Last Filed: 10/17/22 16:42> ECG interpretation date: 10/17/22 <KORTNEY Cruz - Last Filed: 10/17/22 16:42> ECG interpretation time: 12:11 <KORTNEY Cruz - Last Filed: 10/17/22 16:42> Prior ECG tracings: available for review <KORTNEY Cruz - Last Filed: 10/17/22 16:42> Interpretation: Vent. Rate: 113 BPM ? ? Atrial Rate: 113 BPM P-R Int: 132 ms? QRS Dur: 070 ms QT Int: 302 ms ? ? ? P-R-T Axes: -11 042 041 degrees QTc Int: 414 ms ? Sinus tachycardia with Premature supraventricular complexes Otherwise normal ECG When compared with ECG of 10-JUN-2020 09:05 Premature supraventricular complexes are now Present Vent. rate has increased BY? 52 BPM DD/ 1211 <KORTNEY Cruz - Last Filed: 10/17/22 16:42> Critical Care Time Critical Care Time Critical Care Time: Yes <KORTNEY Cruz - Last Filed: 10/17/22 16:42> Total Critical Care Time: 30 <KORTNEY Cruz - Last Filed: 10/17/22 16:42> Attestation: I spent 30 minutes of Critical Care Time with this patient. This does not include time spent on separately reported billable procedures. 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 Return to the emergency department immediately if your symptoms worsen or if you develop any dizziness, shortness of breath, difficulty breathing, chest pain, blurry vision, loss of vision, nausea, vomiting, abdominal pain, fever, chills, back pain, or any other complaints. <Britany Bolanos MD - Last Filed: 10/17/22 12:14> Prescriptions: No Action oxybutynin chloride 10 mg tablet extended release 24hr 10 mg PO DAILY 90 Days Qty: 90 1RF mirtazapine 7.5 mg tablet 7.5 mg PO BEDTIME duloxetine 60 mg capsule,delayed release(DR/EC) 60 mg PO DAILY lidocaine 4 % adhesive patch,medicated 1 patch topical DAILY PRN Rx Instructions: may leave on for up to 12 hrs cyclobenzaprine 10 mg tablet 10 mg PO TID gabapentin 300 mg capsule 300 mg PO TID morphine 15 mg tablet 15 mg PO Q6H PRN amlodipine 5 mg tablet 5 mg PO QAM nortriptyline 75 mg capsule 75 mg PO TID PRN (Reason: pain) pantoprazole 40 mg tablet,delayed release (DR/EC) 40 mg PO mirtazapine 30 mg tablet 30 mg PO BEDTIME sertraline 50 mg tablet 50 mg PO QAM buspirone 15 mg tablet 15 mg PO TID multivitamin Tablet 1 tab PO QAM simethicone 180 mg capsule 180 mg PO DAILY PRN (Reason: gas) tizanidine 4 mg tablet 4 mg PO Q6-8H PRN famotidine 40 mg tablet 40 mg PO BEDTIME tramadol 50 mg tablet 100 mg PO Q8H PRN (Reason: severe pain) docusate sodium 100 mg capsule 100 mg PO BID albuterol sulfate [ProAir HFA] 90 mcg/actuation HFA aerosol inhaler 2 puff inhalation Q6H PRN (Reason: dyspnea) <Britany Bolanos MD - Last Filed: 10/17/22 12:14> Referrals: [facility] [Provider Group] (Call to establish and follow up with a farm owner operator. ) Marisol Tatum MD [Primary Care Provider] - <Britany Bolanos MD - Last Filed: 10/17/22 12:14> Print Language: Tajik <Britany Bolanos MD - Last Filed: 10/17/22 12:14>
[2022-10-17 14:00] VITALS: BP 113/59; PULSE 106; RESP 10; TEMP 37.3; O2SAT 100
[2022-10-17 14:03] LABS: MANUAL DIFF FLAG NO
[2022-10-17 14:05] LABS: Basophils Percent Auto 0.4 % (0-2); Eosinophils Absolute Auto 0.2 X10*3/uL (0.0-0.4); Eosinophils Percent Auto 3.5 % (0-4); Hematocrit 40.8 % (37.0-47.0); Hemoglobin 12.8 g/dl (12.0-16.0); Imm Gran Abs Auto 0.02 X10*3/uL (0.00-0.03); Imm Gran Pct Auto 0.3 % (0.0-0.4); Lymphocytes Absolute Auto 1.4 X10*3/uL (1.2-4.9); Lymphocytes Percent Auto 20.4 % (20-40); Mean Corpuscular HGB Conc 31.4 g/dl (31.0-35.0); Mean Corpuscular Hemoglobin 27.5 pg (27.0-33.0); Mean Corpuscular Volume 87.7 fL (80.0-98.0); Mean Platelet Volume 9.4 fL (9.4-12.3); Monocytes Absolute Auto 0.5 X10*3/uL (0.1-1.2); Monocytes Percent Auto 6.8 % (2-11); Neutrophils Absolute Auto 4.6 x10*3/uL (2.0-8.3); Neutrophils Percent Auto 68.6 % (45-73); Platelet Count 422 X10*3/uL (160-400); Red Blood Count 4.65 X10*6/uL (4.20-5.50); Red Cell Distribution Width 13.6 % (11.0-16.0); White Blood Count 6.8 X10*3/uL (4.8-10.8)
[2022-10-17 14:20] LABS: Appearance Urine Clear; Color Urine Yellow; Glucose Urine UA Negative (Negative); Leukocyte Esterase Urine Moderate (2+) (Negative); Nitrite Urine Negative (Negative); UMIC TRIGGER UACC YES; Urine Blood Negative (Negative); Urine Ketones Negative (Negative); Urine Protein Negative (Neg-Trace)
[2022-10-17 14:23] LABS: Alanine Aminotransferase 14 U/L (0-31); Alkaline Phosphatase 97 U/L (39-117); Anion Gap 13 (12-20); Aspartate Amino Transferase 17 U/L (5-31); Bilirubin Direct < 0.2 mg/dL (0.0-0.5); Bilirubin Total 0.3 mg/dL (0.0-1.0); Blood Urea Nitrogen 7 mg/dL (9-16); Calcium 9.3 mg/dL (8.4-10.2); Carbon Dioxide 30 mmol/L (22-29); Chloride 102 mmol/L (96-108); Creatinine Clr Calc Pharmacy 79.3; Estimated Glomerular Filt Rate > 60; Glucose Random 90 mg/dL (60-115); Lipase 9 U/L (8-78); Potassium 4.6 mmol/L (3.3-5.1); Sodium 140 mmol/L (135-145)
[2022-10-17 14:24] LABS: Troponin-I High Sensitivity < 3.5 ng/L (<3.5-17.0)
[2022-10-17 14:29] LABS: B Type Natriuretic Peptide 21 pg/mL (<100)
[2022-10-17 14:50] LABS: Influenza A PCR NEGATIVE (Negative); Influenza B PCR NEGATIVE (Negative); Resp Syncy Virus RNA Qual PCR NEGATIVE (Negative); SARS COV2 PCR INHOUSE NEGATIVE (Negative)
[2022-10-17 15:34] LABS: Bacteria Urine Trace (None Seen); Hyaline Casts Urine 0-2 /LPF (0-2); RBC Urine 0-2 /HPF (0-2); Squamous Epithelial Cell Urine 0-2 /HPF (0-2); UACC Culture Trigger YES; WBC Urine 21-50 /HPF (0-5)
[2022-10-17 15:37] VITALS: BP 121/66; PULSE 102; RESP 16; TEMP 37.2; O2SAT 98
[2022-10-17 16:04] LABS: D Dimer High Sensitivity 182 NG/ML
[2022-10-17] MEDS: 0.9 % Sodium Chloride 1,000 ML 999 ML IV (16:19)
[2022-10-17 16:22] VITALS: BP 119/62; PULSE 105; RESP 17
[2022-10-17] MEDS: HYDROmorphone HCl 1 MG/ML SYRINGE IVPUSH ×2 (16:38→18:38)
[2022-10-17 18:32] VITALS: BP 110/74; PULSE 104; RESP 16; TEMP 36.8; O2SAT 98
== END 2022-10-17 18:47 | disposition home or self-care (01) ==
PROVIDERS: Emergency Medicine; Physician Assistant Medical; Emergency Provider Internal Medicine; PCP Family Medicine
DX: R07.9 Chest pain, unspecified (principal); R06.02 Shortness of breath; Z20.822 Contact with and (suspected) exposure to COVID-19; F17.210 Nicotine dependence, cigarettes, uncomplicated; M96.1 Postlaminectomy syndrome, not elsewhere classified; Z79.891 Long term (current) use of opiate analgesic
CPT/HCPCS: 0241U; 36415; 71045; 80048; 80076; 81001; 83690; 83880; 84484; 85025; 85379; 87086; 87088; 87186; 93005; 99212; 99285; J1170

== ENCOUNTER → 2022-11-08 10:17 | Day surgery (SDC) | payer MEDICAID, SELFPAY ==
--- NOTE | 2022-11-07 10:57 | P.CONAN_ITS ---
HPI - Anesthesia Eval Consult details Narrative: 56yo F for Left Therapeutic Hip joint Injection Chronic opioids PMFSH Active Problems Active Problems: All Active Problems (Updated 10/18/22 @ 00:00 by Keisha Nathan) Arthropathy of left hip (Acute) Sacroiliitis (Acute) Varicose veins of right lower extremity with inflammation (Acute) Varicose veins of left lower extremity with inflammation (Acute) Urinary incontinence (Acute) Acromioclavicular joint arthritis (Acute) [facility] (current) use of opiate analgesic (Acute) Spondylosis of lumbosacral spine with radiculopathy (Acute) Disc degeneration, lumbar (Acute) Postlaminectomy syndrome (Acute) Past Medical History Medical History Disc degeneration, 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 Postlaminectomy syndrome Spondylosis of lumbosacral spine with radiculopathy Family History Family History Mother Breast cancer Thyroid disease Hypotension Father Asthma Emphysema lung Surgical History Surgical History History of appendectomy History of hysterectomy Social History Social History Alcohol intake: never Patient Tobacco Use Status: Current everyday Tobacco user Cigarettes Per Day: 3 Years Smoked: 20 +/- Meds Allergies Allergy/AdvReac Type Severity Reaction Status Date / Time ibuprofen [From MOTRIN] Allergy Unknown HIVES Verified 10/17/22 11:27 baclofen Allergy itchy Verified 10/17/22 11:27 hands/rash Motrin Allergy Unknown unknown Uncoded 10/17/22 11:27 Home Medications Medication Instructions Recorded Confirmed Last Taken Type duloxetine 60 mg capsule,delayed 60 mg PO DAILY 09/22/20 09/22/20 Unknown Histo ry release lidocaine 4 % topical patch 1 patch topical DAILY PRN 09/22/20 09/22/20 Unknown History mirtazapine 7.5 mg tablet 7.5 mg PO BEDTIME 09/22/20 09/22/20 Unknown History albuterol sulfate 90 mcg/actuation 2 puff inhalation Q6H PRN dyspnea 01/31/22 Unknown History aerosol inhaler (ProAir HFA) amlodipine 5 mg tablet 5 mg PO QAM 01/31/22 Unknown History buspirone 15 mg tablet 15 mg PO TID 01/31/22 Unknown History docusate sodium 100 mg capsule 100 mg PO BID 01/31/22 Unknown History famotidine 40 mg tablet 40 mg PO BEDTIME 01/31/22 Unknown History mirtazapine 30 mg tablet 30 mg PO BEDTIME insomnia 01/31/22 Unknown History multivitamin 1 tab PO QAM 01/31/22 Unknown History nortriptyline 75 mg capsule 75 mg PO TID PRN pain 01/31/22 Unknown History pantoprazole 40 mg tablet,delayed 40 mg PO 01/31/22 Unknown History release sertraline 50 mg tablet 50 mg PO QAM depressive disorder 01/31/22 Unknown History simethicone 180 mg capsule 180 mg PO DAILY PRN gas 01/31/22 Unknown History tizanidine 4 mg tablet 4 mg PO Q6-8H PRN 01/31/22 Unknown History tramadol 50 mg tablet 100 mg PO Q8H PRN severe pain 01/31/22 Unknown History cyclobenzaprine 10 mg tablet 10 mg PO TID 10/17/22 Unknown History gabapentin 300 mg capsule 300 mg PO TID 10/17/22 Unknown History morphine 15 mg immediate release 15 mg PO Q6H PRN 10/17/22 Unknown History tablet Exam Exam Date and Time: November 07, 2022 1057 Assessment and Plan Assessment Anesthesia Assessment: Chart Reviewed
[2022-11-08 10:44] VITALS: BMI 27.8
--- NOTE | 2022-11-08 11:10 | PC.NURSE ---
Dr. Lawson to bedside for [address] [place] [address]. patient procedure canceled.
== END ==
PROVIDERS: PCP Family Medicine; Visit Provider Anesthesiology
DX: M16.12 Unilateral primary osteoarthritis, left hip (principal); Z53.8 Procedure and treatment not carried out for other reasons; R50.9 Fever, unspecified
CPT/HCPCS: J1100; J2795; J3301; Q9965; Q9967

== ENCOUNTER 2022-11-16 11:32 | Day surgery (SDC) | payer MEDICAID, SELFPAY ==
--- NOTE | 2022-11-15 10:14 | HO.ANESPROP2 ---
Documented by User: Evelyne Maloney NP 11/15/22 14:59 HPI - Anesthesia Eval Consult details Narrative: 57yo F for Left Therapeutic Hip Joint Injection Previously cancelled d/t febrile at 103. [facility] [place] by [place] provider) for tachy 10/2022. ED provider recommend f/u with provider. Seen by PCP 11/13/22. No report of CP from patient. Pulse 90. PMFSH Active Problems Active Problems: All Active Problems (Updated 10/18/22 @ 00:00 by Keisha Nathan) Arthropathy of left hip (Acute) Sacroiliitis (Acute) Varicose veins of right lower extremity with inflammation (Acute) Varicose veins of left lower extremity with inflammation (Acute) Urinary incontinence (Acute) Acromioclavicular joint arthritis (Acute) skilled nursing (current) use of opiate analgesic (Acute) Spondylosis of lumbosacral spine with radiculopathy (Acute) Disc degeneration, lumbar (Acute) Postlaminectomy syndrome (Acute) Past Medical History Medical History Disc degeneration, lumbar skilled nursing (current) use of opiate analgesic Postlaminectomy syndrome Spondylosis of lumbosacral spine with radiculopathy Family History Family History Mother Breast cancer Thyroid disease Hypotension Father Asthma Emphysema lung Surgical History Surgical History History of appendectomy History of hysterectomy Social History Social History Alcohol intake: never Patient Tobacco Use Status: Current everyday Tobacco user Cigarettes Per Day: 3 Years Smoked: 20 +/- Smoked in Last 30 Days: Yes Patient Interested in Nicotine Replacement: No Are you DNR?: No Advance Directives: No Advance Directives Information Provided: Yes Meds Allergies Allergy/AdvReac Type Severity Reaction Status Date / Time ibuprofen [From MOTRIN] Allergy Unknown HIVES Verified 11/16/22 14:47 baclofen Allergy itchy Verified 11/16/22 14:47 hands/rash Motrin Allergy Unknown unknown Uncoded 11/16/22 14:47 Home Medications Medication Instructions Recorded Confirmed Last Taken Type duloxetine 60 mg capsule,delayed 60 mg PO DAILY 09/22/20 11/16/22 Unknown History release lidocaine 4 % topical patch 1 patch topical DAILY PRN Pain, 09/22/20 11/16/22 Unknown History Mild albuterol sulfate 90 mcg/actuation 2 puff inhalation Q6H PRN dyspnea 01/31/22 11/16/22 Unknown History aerosol inhaler (ProAir HFA) amlodipine 5 mg tablet 5 mg PO QAM 01/31/22 11/16/22 11/16/22 History buspirone 15 mg tablet 15 mg PO TID 01/31/22 11/16/22 Unknown History docusate sodium 100 mg capsule 100 mg PO BID 01/31/22 11/16/22 Unknown History mirtazapine 30 mg tablet 30 mg PO BEDTIME insomnia 01/31/22 11/16/22 Unknown History multivitamin 1 tab PO QAM 01/31/22 11/16/22 Unknown History nortriptyline 75 mg capsule 75 mg PO TID PRN pain 01/31/22 11/16/22 Unknown History pantoprazole 40 mg tablet,delayed 40 mg PO 01/31/22 Unknown History release sertraline 50 mg tablet 50 mg PO QAM depressive disorder 01/31/22 11/16/22 Unknown History simethicone 180 mg capsule 180 mg PO DAILY PRN gas 01/31/22 11/16/22 Unknown History tizanidine 4 mg tablet 4 mg PO Q6-8H PRN Muscle Spasm 01/31/22 11/16/22 Unknown History cyclobenzaprine 10 mg tablet 10 mg PO TID 10/17/22 11/16/22 Unknown History gabapentin 300 mg capsule 300 mg PO TID 10/17/22 11/16/22 Unknown History Exam Exam Date and Time: November 15, 2022 1014 Pertinent Lab Results Pertinent Lab Results: Laboratory Tests 10/17/22 10/17/22 13:47 13:47 WBC 6.8 Hgb 12.8 Hct 40.8 Plt Count 422 H Sodium 140 Potassium 4.6 Chloride 102 Carbon Dioxide 30 H BUN 7 L Creatinine 0.79 Narrative Narrative: EKG 10/2022 Vent. Rate : 113 BPM ? ? Atrial Rate : 113 BPM ?? P-R Int : 132 ms? QRS Dur : 070 ms ? ? QT Int : 302 ms ? ? ? P-R-T Axes : -11 042 041 degrees ?? QTc Int : 414 ms ? Sinus tachycardia with premature ventricular or aberrantly conducted complexes Borderline ECG When compared with ECG of 10-JUN-2020 09:05, Premature supraventricular complexes are now Present Vent. rate has increased BY? 52 BPM Documented by User: Sana Lawson MD 11/16/22 16:08 [facility] Past Medical History Medical History Disc degeneration, lumbar skilled nursing (current) use of opiate analgesic Postlaminectomy syndrome Spondylosis of lumbosacral spine with radiculopathy Family History Family History Mother Breast cancer Thyroid disease Hypotension Father Asthma Emphysema lung Family history of problems with anesthesia: No Surgical History Surgical History History of appendectomy History of hysterectomy Social History Social History Alcohol intake: never Patient Tobacco Use Status: Current everyday Tobacco user Cigarettes Per Day: 3 Years Smoked: 20 +/- Smoked in Last 30 Days: Yes Patient Interested in Nicotine Replacement: No Are you DNR?: No Advance Directives: No Advance Directives Information Provided: Yes Meds Allergies Allergy/AdvReac Type Severity Reaction Status Date / Time ibuprofen [From MOTRIN] Allergy Unknown HIVES Verified 11/16/22 14:47 baclofen Allergy itchy Verified 11/16/22 14:47 hands/rash Motrin Allergy Unknown unknown Uncoded 11/16/22 14:47 Home Medications Medication Instructions Recorded Confirmed Last Taken Type duloxetine 60 mg capsule,delayed 60 mg PO DAILY 09/22/20 11/16/22 Unknown History release lidocaine 4 % topical patch 1 patch topical DAILY PRN Pain, 09/22/20 11/16/22 Unknown History Mild albuterol sulfate 90 mcg/actuation 2 puff inhalation Q6H PRN dyspnea 01/31/22 11/16/22 Unknown History aerosol inhaler (ProAir HFA) amlodipine 5 mg tablet 5 mg PO QAM 01/31/22 11/16/22 11/16/22 History buspirone 15 mg tablet 15 mg PO TID 01/31/22 11/16/22 Unknown History docusate sodium 100 mg capsule 100 mg PO BID 01/31/22 11/16/22 Unknown History mirtazapine 30 mg tablet 30 mg PO BEDTIME insomnia 01/31/22 11/16/22 Unknown History multivitamin 1 tab PO QAM 01/31/22 11/16/22 Unknown History nortriptyline 75 mg capsule 75 mg PO TID PRN pain 01/31/22 11/16/22 Unknown History pantoprazole 40 mg tablet,delayed 40 mg PO 01/31/22 Unknown History release sertraline 50 mg tablet 50 mg PO QAM depressive disorder 01/31/22 11/16/22 Unknown History simethicone 180 mg capsule 180 mg PO DAILY PRN gas 01/31/22 11/16/22 Unknown History tizanidine 4 mg tablet 4 mg PO Q6-8H PRN Muscle Spasm 01/31/22 11/16/22 Unknown History cyclobenzaprine 10 mg tablet 10 mg PO TID 10/17/22 11/16/22 Unknown History gabapentin 300 mg capsule 300 mg PO TID 10/17/22 11/16/22 Unknown History Exam Airway Loose/Missing/Broken Teeth: Upper Heart: rr Lungs: cta Assessment and Plan Final Anesthetic Review Family History of Problems with Anesthesia: No NPO: Yes ASA Class: II Final Preanesthetic Review: No Changes in Pt Med Stat, Meds/Allgs Chart Reviewed, Consent Obtained/Reviewed and Anes Risks/Benef Reviewed Patient Risk: Low Procedure Risk: Low Anesthetic Plan Anesthetic Plan: MAC: Disposition: Standard PACU
--- NOTE | ~2022-11-16 | FL_ITS ---
EXAMINATION: XR FLUOROSCOPY WITH IMAGES CLINICAL INFORMATION: Left hip pain. COMPARISON: None. TECHNIQUE: Fluoroscopy Supervised By: Dr. Ryan Parekh. Fluoroscopy Time: 0.2 minutes. Cumulative Dose: 4.63 mGy. DAP: 1.26 Gycm2. Images: 2. FINDINGS: There are 2 images revealing needle positioned along the left supralateral femoral head with minimal contrast. The hip joint space is reduced. No fracture, dislocation or lytic process seen. FL/FL guidance in OR IMPRESSION: Fluoroscopy guidance was provided to referring physician for pain management.
[2022-11-16 12:56] VITALS: BMI 28.8
[2022-11-16 13:00] VITALS: BP 127/74; PULSE 77; RESP 18; TEMP 36.5; O2SAT 98
[2022-11-16] MEDS: Lactated Ringers 1,000 ML 50 ML IVCONT (13:22)
--- NOTE | 2022-11-16 16:00 | MHC.SHP ---
Pre-Procedural Eval Section A Date of Service: 11/16/22 Section B Chief Complaint: Unilateral primary osteoarthritis, left hip Details of Present Illness: as above Relevant Family History (Specify if Yes): No Relevant Social History: None Present Medications: None Medical History: No relevant PMH History of Previous Operations: No relevant previous surgery Allergies: Allergies Allergy/AdvReac Type Severity Reaction Status Date / Time ibuprofen [From MOTRIN] Allergy Unknown HIVES Verified 11/16/22 14:47 baclofen Allergy itchy Verified 11/16/22 14:47 hands/rash Motrin Allergy Unknown unknown Uncoded 11/16/22 14:47 Review of Systems Sugical H&P ROS: Negative: Constitution, Cardiovascular, Respiratory, Neurological, Psychiatric, Hem-Onc, Allergic/Immunologic, Gastrointestinal, Genitourinary, Musculoskeletal, Integumentary, Endocrine and Eyes/Ears/Nose/Throat Exam Surgical H&P Exam: Normal: HEENT, Normal: Heart, Normal: Lungs, Normal: Extremities, Normal: Abdomen, Normal: Skin and Normal: Neurological Plan Diagnosis/Plan: Unchanged I have reviewed the history and physical and performed a pertinent physical examination on my patient. No changes have occurred unless specified. Time Spent With Patient Time: Total time managing care of this patient today __10__ minutes.
--- NOTE | 2022-11-16 16:35 | PM.OP ---
Brief Operative Note Date of Service: 11/16/22 Pre-op diagnosis: left hip osteoarthritis Post-op diagnosis: same Procedure: left hip joint steroid injection Surgeon: Ryan Parekh MD Anesthesia: MAC Was an Automotive Finance Manager used for this Procedure?: No Estimated blood loss (mL): 0 Condition: stable Disposition: PACU
--- NOTE | 2022-11-16 16:36 | W.PM.OPN ---
Operative Note Operative Note Date of Service: 11/16/22 Narrative: Intraarticular left hip steroid injection. Informed consent was explained to the patient. All questions were explained and answered.? The patient was taken inside of the operating room where she was positioned right lateral decubitus on operating table..? Time-out was performed delineating patient's name and date of , correct site, side, the nature of the procedure, patient's allergy, preoperative antibiotic if needed, need for VT prophylaxis..? All operating room staff was participating in OR time-out procedure.? [place] [employer] monitors were applied.? Patient was minimally sedated.? Left hip area of the patient was prepped with ChloraPrep and draped with sterile towels.? Sterilely draped C-arm was brought over the operating field and picture of left and right lateral views of the bilateral hip joints were delineated on the screen.? The smaller joint silhouette was chosen as the target.? Direction of the femoral neck was noted and the projection of that direction was delineated on the skin with skin markers.? Projection of the right trochanter to the skin was chosen as the initial needle insertion point.? After that the skin and subcutaneous tissues was anesthetized with 2% lidocaine 2.5 mL.? 22 gauge 5 in long needle was inserted through the skin and started to advance to the joint space under anterior posterior view.? When needle entered the capsule of the joint small amount of the contrast was injected delineating intra-articular space.? After that treatment solution containing 4 cc of lropivacain 0.5% and 40 mg of Kenalog was injected into the joint.? The needle was withdrawn sterile dressing was applied. The patient tolerated procedure well she was taken to PACU for anesthesia recovery.
[2022-11-16 16:37] VITALS: BP 111/52; PULSE 94; RESP 14; TEMP 37.1; O2SAT 100
[2022-11-16 16:52] VITALS: BP 128/82; PULSE 89; RESP 16; TEMP 37.3; O2SAT 99
== END 2022-11-16 17:16 | disposition home or self-care (01) ==
PROVIDERS: PCP Family Medicine; Visit Provider Anesthesiology
PROC: (CPT 20610; principal; 2022-11-16 12:40)
DX: M16.12 Unilateral primary osteoarthritis, left hip (principal); M51.36 Other intervertebral disc degeneration, lumbar region; M96.1 Postlaminectomy syndrome, not elsewhere classified; M46.1 Sacroiliitis, not elsewhere classified; M47.27 Other spondylosis with radiculopathy, lumbosacral region; M19.019 Primary osteoarthritis, unspecified shoulder; Z79.891 Long term (current) use of opiate analgesic; F17.210 Nicotine dependence, cigarettes, uncomplicated
CPT/HCPCS: 20610; J1100; J2250; J2795; J3301; Q9965; Q9967

== ENCOUNTER → 2022-12-20 09:37 | Outpatient (BNVA) | payer MEDICAID, SELFPAY | PROVIDERS: PCP Family Medicine; Visit Provider Anesthesiology | DX: M46.1 Sacroiliitis, not elsewhere classified (principal); M16.12 Unilateral primary osteoarthritis, left hip; M96.1 Postlaminectomy syndrome, not elsewhere classified; M51.36 Other intervertebral disc degeneration, lumbar region; M47.27 Other spondylosis with radiculopathy, lumbosacral region; M19.019 Primary osteoarthritis, unspecified shoulder | CPT/HCPCS: 99212 ==

== ENCOUNTER 2023-01-03 10:32 | Day surgery (SDC) | payer MEDICAID, SELFPAY ==
--- NOTE | ~2023-01-03 | FL_ITS ---
EXAMINATION: FL FLUOROSCOPY WITH IMAGES CLINICAL INFORMATION: Low back pain. COMPARISON: None. TECHNIQUE: Fluoroscopy Supervised By: Dr. Ryan De La Cruz Fluoroscopy Time: 0.6 minutes Cumulative Dose: 11.1 mGy-cm DAP: 3.03 Gy-cm2 Images: 8 FINDINGS: There are multiple digital images obtained revealing needle positioned adjacent to L5, L4 and L3 pedicles with contrast opacifying adjacent soft tissues. There is mild loss of L3-L4 and L4-L5 disc heights with mild spondylosis. No visible acute fracture, dislocation or lytic process seen. The soft tissues are normal. FL/FL guidance in OR IMPRESSION: 1. Fluoroscopy was provided to referring physician for pain management. 2. There are degenerative disc changes L3-L4 and L4-L5 disc levels.
--- NOTE | 2023-01-03 08:41 | MHC.SHP ---
Pre-Procedural Eval Section A Date of Service: 01/03/23 The patient is an INPATIENT: No Changes since office visit: Yes Patient answered all questions The History & Physical has been completed within 30 days and I have reviewed it.: No Section B Chief Complaint: Other spondylosis with radiculopathy, lumbosacral Details of Present Illness: As above Relevant Family History (Specify if Yes): No Relevant Social History: None Present Medications: see Short Stay Collaborative assessment Medical History: No relevant PMH History of Previous Operations: No relevant previous surgery Allergies: Allergies Allergy/AdvReac Type Severity Reaction Status Date / Time ibuprofen [From MOTRIN] Allergy Unknown HIVES Verified 12/20/22 09:53 baclofen Allergy itchy Verified 12/20/22 09:53 hands/rash Motrin Allergy Unknown unknown Uncoded 12/20/22 09:53 Review of Systems Sugical H&P ROS: Negative: Constitution, Cardiovascular, Respiratory, Neurological, Psychiatric, Hem-Onc, Allergic/Immunologic, Gastrointestinal, Genitourinary, Musculoskeletal, Integumentary, Endocrine and Eyes/Ears/Nose/Throat Exam Surgical H&P Exam: Normal: HEENT, Normal: Heart, Normal: Lungs, Normal: Extremities, Normal: Abdomen, Normal: Skin and Normal: Neurological Plan Diagnosis/Plan: Unchanged I have reviewed the history and physical and performed a pertinent physical examination on my patient. No changes have occurred unless specified. Time Spent With Patient Time: Total time managing care of this patient today ____ minutes.
[2023-01-03 10:44] VITALS: BP 132/76; PULSE 84; RESP 18; TEMP 36.1; O2SAT 97; BMI 28.3
--- NOTE | 2023-01-03 10:46 | P.CONAN_ITS ---
HPI - Anesthesia Eval Consult details Narrative: 57 yr old back pain for MBBB PMFSH Active Problems Active Problems: All Active Problems (Updated 10/18/22 @ 00:00 by Keisha Nathan) Arthropathy of left hip (Acute) Sacroiliitis (Acute) Varicose veins of right lower extremity with inflammation (Acute) Varicose veins of left lower extremity with inflammation (Acute) Urinary incontinence (Acute) Acromioclavicular joint arthritis (Acute) director long term care (current) use of opiate analgesic (Acute) Spondylosis of lumbosacral spine with radiculopathy (Acute) Disc degeneration, lumbar (Acute) Postlaminectomy syndrome (Acute) Past Medical History Medical History Disc degeneration, lumbar director long term care (current) use of opiate analgesic Postlaminectomy syndrome Spondylosis of lumbosacral spine with radiculopathy Family History Family History Mother Breast cancer Thyroid disease Hypotension Father Asthma Emphysema lung Family history of problems with anesthesia: No Surgical History Surgical History History of appendectomy History of hysterectomy History of Problems with Anesthesia: No Social History Social History Alcohol intake: never Patient Tobacco Use Status: Current everyday Tobacco user Cigarettes Per Day: 3 Years Smoked: 20 +/- Advance Directives: No Advance Directives Information Provided: Yes Meds Allergies Allergy/AdvReac Type Severity Reaction Status Date / Time ibuprofen [From MOTRIN] Allergy Unknown HIVES Verified 12/20/22 09:53 baclofen Allergy itchy Verified 12/20/22 09:53 hands/rash Motrin Allergy Unknown unknown Uncoded 12/20/22 09:53 Active Medications: Current Medications Lactated Ringer's (Lr) 1,000 mls @ 50 mls/hr IVCONT .Q20H [facility] Home Medications Medication Instructions Recorded Confirmed Last Taken Type duloxetine 60 mg capsule,delayed 60 mg PO DAILY 09/22/20 11/16/22 Unknown History release lidocaine 4 % topical patch 1 patch topical DAILY PRN Pain, 09/22/20 11/16/22 Unknown History Mild albuterol sulfate 90 mcg/actuation 2 puff inhalation Q6H PRN dyspnea 01/31/22 11/16/22 Unknown History aerosol inhaler (ProAir HFA) amlodipine 5 mg tablet 5 mg PO QAM 01/31/22 11/16/22 11/16/22 History buspirone 15 mg tablet 15 mg PO TID 01/31/22 11/16/22 Unknown History docusate sodium 100 mg capsule 100 mg PO BID 01/31/22 11/16/22 Unknown History mirtazapine 30 mg tablet 30 mg PO BEDTIME insomnia 01/31/22 11/16/22 Unknown History multivitamin 1 tab PO QAM 01/31/22 11/16/22 Unknown History nortriptyline 75 mg capsule 75 mg PO TID PRN pain 01/31/22 11/16/22 Unknown History pantoprazole 40 mg tablet,delayed 40 mg PO 01/31/22 Unknown History release sertraline 50 mg tablet 50 mg PO QAM depressive disorder 01/31/22 11/16/22 Unknown History simethicone 180 mg capsule 180 mg PO DAILY PRN gas 01/31/22 11/16/22 Unknown History tizanidine 4 mg tablet 4 mg PO Q6-8H PRN Muscle Spasm 01/31/22 11/16/22 Unknown History cyclobenzaprine 10 mg tablet 10 mg PO TID 10/17/22 11/16/22 Unknown History gabapentin 300 mg capsule 300 mg PO TID 10/17/22 11/16/22 Unknown History Exam Exam Date and Time: January 03, 2023 1046 Airway Mallampati Class: II TM Dist: >3cm Neck ROM: Full Denture: Upper Heart: rrr Lungs: cta Assessment and Plan Assessment Anesthesia Assessment: Anesthesia Plan Discussed and Chart Reviewed Final Anesthetic Review Family History of Problems with Anesthesia: No History of Problems with Anesthesia: No NPO: Yes ASA Class: II Final Preanesthetic Review: No Changes in Pt Med Stat, Meds/Allgs Chart Reviewed, Consent Obtained/Reviewed and Anes Risks/Benef Reviewed Patient Risk: Low Procedure Risk: Low Anesthetic Plan Anesthetic Plan: MAC: Disposition: Standard PACU
[2023-01-03] MEDS: Lactated Ringers 1,000 ML 50 ML IVCONT (10:55)
--- NOTE | 2023-01-03 11:29 | PM.OP ---
Brief Operative Note Date of Service: 01/03/23 Pre-op diagnosis: spondylosis lumbar spine Post-op diagnosis: same Procedure: Bilateral therapeutic MBBs L2- L3- L4- DRL5 Surgeon: Ryan Parekh MD Anesthesia: MAC Was an Conference Center Coordinator used for this Procedure?: No Estimated blood loss (mL): 0 Condition: stable Disposition: PACU
[2023-01-03 11:30] VITALS: BP 98/68; PULSE 81; RESP 12; TEMP 36.3; O2SAT 98
--- NOTE | 2023-01-03 11:31 | P.OP_ITS ---
Operative Note Operative Note Date of Service: 01/03/23 Narrative: Bilateral therapeutic MBBs L2- L3- L4- DRL5. ?Informed consent was explained to the patient. All questions were explained and? answered.? The patient was taken inside the operating room where she was positioned prone on the operating table. Time-out was performed delineating correct site, side, the nature of the procedure, patient's allergy, preoperative antibiotic if needed.? All operating room staff was participating in OR time-out procedure. ? ? The lower back was prepped with ChloraPrep and draped with sterile towels.? C- arm was brought over the operating field and sq picture of L3, L4-and L5 vert ebra and S1 AREA were delineated on the screen.? Point of interest were delineated as confluence of superior articular process of L3, L4 and L5 vertebra bilaterally with corresponding transverse processes as well as confluence of the sacral alae bilaterally with superior articular process of S1.? The projection of the point of interest to the skin were injected with the small amount of local anesthetic lidocaine 2% 1-1.5 cc.? After that 22 gauge 5 inch spinal needle was driven sequentially to the points of interest in tunnel vision fashion. After needles gently contacted the bone at the point of interests the needle was injected with small amount of the contrast.? The injection of the contrast did not demonstrate any intravascular or intrathecal spread of the contrast.? After that injection of the? ropivacaine 0.5%-1cc mixed with kenalog was performed at each needle location.?total dose of kenalog was 80 mg. ? Upon completion of the injections? needle was? removed and sterile Band-Aids were applied.? The patient tolerated procedure very well.
[2023-01-03 11:45] VITALS: BP 102/52; PULSE 64; RESP 16; TEMP 36.1; O2SAT 97
== END 2023-01-03 13:30 | disposition home or self-care (01) ==
PROVIDERS: PCP Family Medicine; Visit Provider Anesthesiology
PROC: (CPT 64493; principal; 2023-01-03 11:30)
DX: M47.27 Other spondylosis with radiculopathy, lumbosacral region (principal); M51.36 Other intervertebral disc degeneration, lumbar region; M96.1 Postlaminectomy syndrome, not elsewhere classified
CPT/HCPCS: 64493; 64494; 64495; J2795; J3301; Q9965; Q9967

== ENCOUNTER 2023-01-30 14:39 | Emergency (ER) | payer MEDICAID, SELFPAY ==
--- NOTE | 2023-01-30 | ECG_ITS ---
Test Reason : SOB Blood Pressure : / mmHG Vent. Rate : 074 BPM Atrial Rate : 074 BPM P-R Int : 136 ms QRS Dur : 080 ms QT Int : 362 ms P-R-T Axes : 061 049 047 degrees QTc Int : 401 ms Normal sinus rhythm Normal ECG When compared with ECG of 17-OCT-2022 12:11, Vent. rate has decreased BY 39 BPM Referred By: Philippe Guerrero Electronically Signed By:JOEL TANNER MD
--- NOTE | ~2023-01-30 | XR_ITS ---
EXAMINATION: XR CHEST CLINICAL INFORMATION: Pain COMPARISON: 10/17/2022 TECHNIQUE: 2 views of the chest were obtained. FINDINGS: Normal symmetric lung volumes. No parenchymal consolidation. No pleural effusion. No pneumothorax. Cardiomediastinal silhouette and pulmonary vascularity are within normal limits. No acute osseous abnormalities. XR/XR chest 2V IMPRESSION: No acute findings
--- NOTE | ~2023-01-30 | CT_ITS ---
EXAMINATION: CT ABDOMEN AND PELVIS WITH CONTRAST CLINICAL INFORMATION: Pain, vomiting, elevated lipase, rule out pancreatitis COMPARISON: 02/10/2019 TECHNIQUE: Multidetector volumetric images were obtained from the superior aspect of the liver through the pubic symphysis following administration 85 mL of Omnipaque 350 intravenous contrast. Sagittal and coronal reformatted images were obtained on the technologist's workstation. Oral contrast: No This CT examination was performed using dose optimization techniques as appropriate, variously including the following: *Automated exposure control *Adjustment of mA and/or kV according to patient size (this includes techniques or standardized protocols for targeted exams where dose is matched to indication/reason for exam; i.e. extremities or head) *Use of iterative reconstruction technique DLP: 645 mGy-cm FINDINGS: LUNG BASES: Small groundglass density at the left lung base on image 11. Measures 8 mm. LIVER, GALLBLADDER, AND BILIARY TREE: The liver is normal in size, shape, and attenuation. No focal hepatic lesion or biliary ductal dilatation is present. The gallbladder is unremarkable with no evidence of radiopaque gallstones, gallbladder wall thickening, or obvious pericholecystic inflammatory changes. PANCREAS: There is some heterogeneous low density within the pancreatic head. SPLEEN: Unremarkable. ADRENAL GLANDS: Unremarkable. KIDNEYS AND URETERS: The kidneys are normal in size, shape, and attenuation. No hydronephrosis, hydroureter, or calculi seen. No perinephric stranding. BLADDER: Bladder is decompressed GASTROINTESTINAL TRACT: Diverticula disease. No evidence for diverticulitis. Nonobstructing bowel pattern. ABDOMINAL WALL: No significant hernia is appreciated. LYMPH NODES: There is no bulky adenopathy. VASCULAR: Atherosclerotic changes are noted PELVIC VISCERA: Unremarkable. OSSEOUS STRUCTURES: Unremarkable. CT/CT abdomen pelvis w IV con IMPRESSION: Mildly heterogeneous appearance to the pancreatic head. Given the history sequela of pancreatitis would need to be considered. Follow-up recommended as an underlying lesion cannot be excluded. No suspicious fluid collection or soft tissue stranding in the region is noted Otherwise some scattered diverticula disease without evidence for diverticulitis Note is made of ground glass nodularity left base. This could be inflammatory. Groundglass nodularity needs to be considered. Therefore recommend full CT of the chest for complete evaluation. This may be done an outpatient basis. Fleischner guidelines were followed.
[2023-01-30 15:01] VITALS: BP 132/85; PULSE 106; RESP 18; TEMP 36.5; O2SAT 98; BMI 30.7
--- NOTE | 2023-01-30 15:04 | ED.GENADULT ---
HPI - General Adult General Chief complaint: Upper Respiratory Symptoms <Philippe Guerrero - Last Filed: 01/30/23 15:08> Stated complaint: Sore throat/HBP/SOB <Philippe Guerrero - Last Filed: 01/30/23 15:08> Time Seen by Provider: 01/30/23 17:13 <Philippe Guerrero - Last Filed: 01/30/23 15:08> Source: patient <Shelia Min NP - Last Filed: 01/30/23 19:39> Mode of arrival: ambulatory <Shelia Min NP - Last Filed: 01/30/23 19:39> Limitations: no limitations <Shelia Min NP - Last Filed: 01/30/23 19:39> History of Present Illness HPI narrative: 57-year-old female with a history of hypertension, asthma, GERD, chronic pain, varicose veins who presents to the ER with complaints of 2 weeks of sore throat, cough, chest discomfort with coughing, shortness of breath, wheezing. Patient reports yesterday/today she noticed that when she was coughing she had some blood-tinged sputum. no leg swelling or leg pain. No fever. Patient also feels that she has some abdominal discomfort, vomiting x 2 days. Had one loose bm this mprning. vomit is NBNB. NO urinary symptoms. <Shelia Min NP - Last Filed: 01/30/23 19:39> Related Data Home medications: Home Medications Medication Instructions Recorded Confirmed duloxetine 60 mg capsule,delayed 60 mg PO DAILY 09/22/20 11/16/22 release lidocaine 4 % topical patch 1 patch topical DAILY PRN Pain, 09/22/20 11/16/22 Mild albuterol sulfate 90 mcg/actuation 2 puff inhalation Q6H PRN dyspnea 01/31/22 11/16/22 aerosol inhaler (ProAir HFA) amlodipine 5 mg tablet 5 mg PO QAM 01/31/22 11/16/22 buspirone 15 mg tablet 15 mg PO TID 01/31/22 11/16/22 docusate sodium 100 mg capsule 100 mg PO BID 01/31/22 11/16/22 mirtazapine 30 mg tablet 30 mg PO BEDTIME insomnia 01/31/22 11/16/22 multivitamin 1 tab PO QAM 01/31/22 11/16/22 nortriptyline 75 mg capsule 75 mg PO TID PRN pain 01/31/22 11/16/22 pantoprazole 40 mg tablet,delayed 40 mg PO 01/31/22 release sertraline 50 mg tablet 50 mg PO QAM depressive disorder 01/31/22 11/16/22 simethicone 180 mg capsule 180 mg PO DAILY PRN gas 01/31/22 11/16/22 tizanidine 4 mg tablet 4 mg PO Q6-8H PRN Muscle Spasm 01/31/22 11/16/22 cyclobenzaprine 10 mg tablet 10 mg PO TID 10/17/22 11/16/22 gabapentin 300 mg capsule 300 mg PO TID 10/17/22 11/16/22 Previous Rx's Medication Instructions Recorded oxybutynin chloride 10 mg 10 mg PO DAILY 90 days #90 tabs 05/26/21 tablet,extended release 24 hr azithromycin 250 mg tablet See Rx Instructions PO .COMPLEX #6 01/30/23 tabs ondansetron 4 mg disintegrating 4 mg PO Q6H PRN nausea and 01/30/23 tablet vomiting #10 tabs prednisone 20 mg tablet 40 mg PO DAILY #10 tabs 01/30/23 <Philippe Guerrero - Last Filed: 01/30/23 15:08> Allergies/adverse reactions: Allergies Allergy/AdvReac Type Severity Reaction Status Date / Time baclofen Allergy Intermediate itchy Verified 01/30/23 15:01 hands/rash ibuprofen [From MOTRIN] Allergy Intermediate HIVES Verified 01/30/23 15:01 Motrin Allergy Unknown unknown Uncoded 12/20/22 09:53 <Philippe Guerrero - Last Filed: 01/30/23 15:08> Review of Systems Review of Systems: Yes all other systems are reviewed and are negative <Shelia Min NP - Last Filed: 01/30/23 19:39> Constitutional: Constitutional: Reports no additional constitutional complaints, Denies body ache(s), Denies chills, Denies fever(s), Denies headache(s) and Denies weakness <Shelia Min NP - Last Filed: 01/30/23 19:39> Eyes: Eyes: Reports no additional eye complaints and Denies change in vision <Shelia Min MARSH BUGGY OPERATOR - Last Filed: 01/30/23 19:39> ENT: Reports system reviewed and no additional complaints, except as documented, Denies dizziness, Denies headache(s), Reports nasal congestion, Denies nasal discharge, Denies neck pain and Reports sore throat <Shelia Min MARSH BUGGY OPERATOR - Last Filed: 01/30/23 19:39> Cardiovascular: Cardiovascular: Reports no additional cardiovascular complaints, Reports chest pain, Denies leg edema and Reports dyspnea <Shelia Min, MARSH BUGGY OPERATOR - Last Filed: 01/30/23 19:39> Respiratory: Respiratory: Reports no additional respiratory complaints, Reports cough, Reports hemoptysis, Reports dyspnea and Reports wheezing <Shelia Min, MARSH BUGGY OPERATOR - Last Filed: 01/30/23 19:39> Gastrointestinal: Gastrointestinal: Reports no additional gastrointestinal complaints, Reports abdominal pain, Denies diarrhea, Reports nausea and Reports vomiting <Shelia Mni MARSH BUGGY OPERATOR - Last Filed: 01/30/23 19:39> Genitourinary: Genitourinary: Reports no additional female genitourinary complaints and Denies urinary incontinence <Shelia Min MARSH BUGGY OPERATOR - Last Filed: 01/30/23 19:39> Musculoskeletal: Musculoskeletal: Reports no additional musculoskeletal complaints, Denies back pain, Denies arthralgias, Denies joint swelling, Denies neck pain, Denies numbness and Denies tingling <Shelia Min MARSH BUGGY OPERATOR - Last Filed: 01/30/23 19:39> Integumentary/Breasts: Skin/Breast: Reports system reviewed and no additional complaints, except as docu and Denies rash <Shelia Min MARSH BUGGY OPERATOR - Last Filed: 01/30/23 19:39> Neurologic: Reports system reviewed and no additional complaints, except as documented, Denies dizziness, Denies headache(s), Denies numbness, Denies tingling and Denies weakness <Shelia Min MARSH BUGGY OPERATOR - Last Filed: 01/30/23 19:39> Allergic/Immunologic: Allergic/Immunologic: Reports wheezing <Shelia Min, MARSH BUGGY OPERATOR - Last Filed: 01/30/23 19:39> [facility] Past Medical History Attestation statement: The following information was validated with the patient. 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 Postlaminectomy syndrome Spondylosis of lumbosacral spine with radiculopathy <Philippe Guerrero - Last Filed: 01/30/23 15:08> Surgical History: Surgical History History of appendectomy History of hysterectomy <Philippe Guerrero - Last Filed: 01/30/23 15:08> Family History Family History: Family History Mother Breast cancer Thyroid disease Hypotension Father Asthma Emphysema lung <Philippe Guerrero - Last Filed: 01/30/23 15:08> Social History Social History: Social History Alcohol intake: never Patient Tobacco Use Status: Current everyday Tobacco user Cigarettes Per Day: 3 Years Smoked: 20 +/- Smoked in Last 30 Days: Yes Use of substances other than those prescribed or required for medical reasons: No Advance Directives: No Advance Directives Information Provided: No <Philippe Guerrero - Last Filed: 01/30/23 15:08> Physical Exam ED Vital Signs: Vital Signs - 24 hr 01/30/23 15:01 01/30/23 16:50 01/30/23 17:54 Temperature 97.7 F 97.6 F Pulse Rate 106 H 83 87 Respiratory Rate 18 18 18 Blood Pressure 132/85 153/62 H Pulse Oximetry 98 100 Oxygen Delivery Method Room Air Room Air 01/30/23 21:57 Temperature Pulse Rate 88 Respiratory Rate 20 Blood Pressure 127/59 L Pulse Oximetry 96 Oxygen Delivery Method Room Air BMI result Body Mass Index 30.7 <Philippe Guerrero - Last Filed: 01/30/23 15:08> Vital Signs - 24 hr 01/30/23 15:01 01/30/23 16:50 01/30/23 17:54 Temperature 97.7 F 97.6 F Pulse Rate 106 H 83 87 Respiratory Rate 18 18 18 Blood Pressure 132/85 153/62 H Pulse Oximetry 98 100 Oxygen Delivery Method Room Air Room Air 01/30/23 21:57 Temperature Pulse Rate 88 Respiratory Rate 20 Blood Pressure 127/59 L Pulse Oximetry 96 Oxygen Delivery Method Room Air BMI result Body Mass Index 30.7 <Shelia Min NP - Last Filed: 01/30/23 19:39> Vital Signs - 24 hr 01/30/23 15:01 01/30/23 16:50 01/30/23 17:54 Temperature 97.7 F 97.6 F Pulse Rate 106 H 83 87 Respiratory Rate 18 18 18 Blood Pressure 132/85 153/62 H Pulse Oximetry 98 100 Oxygen Delivery Method Room Air Room Air 01/30/23 21:57 Temperature Pulse Rate 88 Respiratory Rate 20 Blood Pressure 127/59 L Pulse Oximetry 96 Oxygen Delivery Method Room Air BMI result Body Mass Index 30.7 <Ashley Frey NP - Last Filed: 01/30/23 22:06> Const General: cooperative, healthy appearing, comfortable and no acute distress <Shelia Min NP - Last Filed: 01/30/23 19:39> Orientation/consciousness: patient oriented x3 <Shelia Min NP - Last Filed: 01/30/23 19:39> Limitations: no limitations <Shelia Min NP - Last Filed: 01/30/23 19:39> HENMT Head: Yes normal to inspection <Shelia Min NP - Last Filed: 01/30/23 19:39> Ears: hearing grossly normal bilaterally and TM's normal bilaterally <Shelia Min NP - Last Filed: 01/30/23 19:39> General nose exam: Normal external nose present <Shelia Min NP - Last Filed: 01/30/23 19:39> Face and sinus: Yes normal facial exam <Shelia Min NP - Last Filed: 01/30/23 19:39> Mouth: Normal oral and palatal mucosa present <Shelia Min MARSH BUGGY OPERATOR - Last Filed: 01/30/23 19:39> Throat: Yes posterior oropharynx normal, Yes tonsils normal and Yes uvula midline <Shelia Min MARSH BUGGY OPERATOR - Last Filed: 01/30/23 19:39> Eyes General: appearance normal, both eyes and all related structures <Shelia Min MARSH BUGGY OPERATOR - Last Filed: 01/30/23 19:39> Pupils: Equal, round and reactive pupils present <Shelia Min MARSH BUGGY OPERATOR - Last Filed: 01/30/23 19:39> Neck Neck: Yes normal visual inspection, Yes full ROM, Yes no lymphadenopathy and Yes no meningeal signs <Shelia Min MARSH BUGGY OPERATOR - Last Filed: 01/30/23 19:39> Chest Chest palpation & inspection: normal inspection of the chest <Shelia Min MARSH BUGGY OPERATOR - Last Filed: 01/30/23 19:39> Resp Effort & Inspection: normal respiratory effort <Shelia Min MARSH BUGGY OPERATOR - Last Filed: 01/30/23 19:39> Auscultation: clear to auscultation bilaterally <Shelia Min MARSH BUGGY OPERATOR - Last Filed: 01/30/23 19:39> Cardio Rate: regular rate <Shelia Min MARSH BUGGY OPERATOR - Last Filed: 01/30/23 19:39> Rhythm: regular rhythm <Shelia Min MARSH BUGGY OPERATOR - Last Filed: 01/30/23 19:39> Peripheral pulses: Peripheral pulses 2+ throughout <Shelia Min MARSH BUGGY OPERATOR - Last Filed: 01/30/23 19:39> GI Inspection: Yes normal to inspection <Shelia Min MARSH BUGGY OPERATOR - Last Filed: 01/30/23 19:39> Palpation (GI): Soft to palpation and Tenderness to palpation present (GI) (mild diffuse tenderness) <Shelia Min MARSH BUGGY OPERATOR - Last Filed: 01/30/23 19:39> Auscultation: normal bowel sounds <Shelia Min MARSH BUGGY OPERATOR - Last Filed: 01/30/23 19:39> General: Yes no CVA tenderness <Shelia Min MARSH BUGGY OPERATOR - Last Filed: 01/30/23 19:39> Back/Spine/Pelvis Back: no CVA tenderness <Shelia Min MARSH BUGGY OPERATOR - Last Filed: 01/30/23 19:39> Thoracic/Lumbar Spine: thoracic and lumbar spine normal to inspection <Shelia Min MARSH BUGGY OPERATOR - Last Filed: 01/30/23 19:39> Skin General skin exam: no rashes or lesions noted <Shelia Min MARSH BUGGY OPERATOR - Last Filed: 01/30/23 19:39> Neuro General: patient oriented x3, moves all extremities and no meningeal signs <Shelia Min MARSH BUGGY OPERATOR - Last Filed: 01/30/23 19:39> Cranial nerves: Yes Equal, round and reactive pupils present <Shelia Min MARSH BUGGY OPERATOR - Last Filed: 01/30/23 19:39> Cognition (Neuro): normal cognition <Shelia Min MARSH BUGGY OPERATOR - Last Filed: 01/30/23 19:39> Gait exam (Neuro): Normal gait present <Shelia Min MARSH BUGGY OPERATOR - Last Filed: 01/30/23 19:39> Extrem General: Yes normal to inspection, Yes no pedal edema and Yes no calf tenderness <Shelia Min MARSH BUGGY OPERATOR - Last Filed: 01/30/23 19:39> Course Course Course Narrative: 57-year-old primarily Samoan-speaking female with past medical history significant for asthma, tobacco dependence presents for evaluation of a cough, sore throat x2 weeks. Patient reports that she has been coughing of blood intermittently. No retropharyngeal edema. Mild rhonchi on the right, no wheezing noted. Plan for chest x-ray <Philippe Guerrero - Last Filed: 01/30/23 15:08> Reevaluation(s) Reevaluation #1: 1900- labs show elevated lipase. Consider pancreatitis. CT will be ordered. Additional labs unremarkable including D-dimer. No significant hemoptysis. Patient describes as bloody streaks. Likely bronchial irritation. Chest x-ray shows no acute finding. Will follow with CT <Shelia Min MARSH BUGGY OPERATOR - Last Filed: 01/30/23 19:39> Reevaluation #2: 1940-Sign out to [facility]ETS pending above. <Shelia Min NP - Last Filed: 01/30/23 19:39> Time: 22:05 <Ashley Frey NP - Last Filed: 01/30/23 22:06> Reevaluation #3: CT scan indicates pancreatic head abnormalities, lipase is 144, I did discuss this case with hospitalist. Patient does not fit [place] criteria for pancreatitis admission. Plan is to follow up outpatient. Patient verbalized understanding of and agrees to plan. pattern assembler utilized for all the correspondence. <Ashley Frey NP - Last Filed: 01/30/23 22:06> Medications Administered Discontinued Medications Generic Name Dose Route Start Last Admin Trade Name Freq PRN Reason Stop Dose Admin Acetaminophen 650 mg 01/30/23 21:50 01/30/23 21:56 Acetaminophen 325 Mg Tablet PO 01/30/23 21:51 650 mg ONCE ONE Administration Albuterol Sulfate 2 puff 01/30/23 17:20 01/30/23 17:28 Albuterol Sulfate 90 Mcg 8 Gm Inhaler INHALE 01/30/23 17:21 2 puff ONCE ONE Administration Albuterol Sulfate 5 mg/ 0 mg 01/30/23 17:30 01/30/23 17:47 Ipratropium [place] 0.5 mg INHALE 01/30/23 17:31 5 each ONCE ONE Administration Iohexol 100 ml 01/30/23 20:02 01/30/23 20:03 Iohexol 350 Mg/Ml 100 Ml Infus..Btl IV 01/30/23 20:03 85 ml ONCE ONE Administration Ondansetron HCl 4 mg 01/30/23 18:38 01/30/23 18:42 Ondansetron Odt 4 Mg Tab.Rapdis TRANSLINGU 01/30/23 18:39 4 mg ONCE ONE Administration <Philippe Guerrero - Last Filed: 01/30/23 15:08> Medications Administered Discontinued Medications Generic Name Dose Route Start Last Admin Trade Name Freq PRN Reason Stop Dose Admin Acetaminophen 650 mg 01/30/23 21:50 01/30/23 21:56 Acetaminophen 325 Mg Tablet PO 01/30/23 21:51 650 mg ONCE ONE Administration Albuterol Sulfate 2 puff 01/30/23 17:20 01/30/23 17:28 Albuterol Sulfate 90 Mcg 8 Gm Inhaler INHALE 01/30/23 17:21 2 puff ONCE ONE Administration Albuterol Sulfate 5 mg/ 0 mg 01/30/23 17:30 01/30/23 17:47 Ipratropium [place] 0.5 mg INHALE 01/30/23 17:31 5 each ONCE ONE Administration Iohexol 100 ml 01/30/23 20:02 01/30/23 20:03 Iohexol 350 Mg/Ml 100 Ml Infus..Btl IV 01/30/23 20:03 85 ml ONCE ONE Administration Ondansetron HCl 4 mg 01/30/23 18:38 01/30/23 18:42 Ondansetron Odt 4 Mg Tab.Rapdis TRANSLINGU 01/30/23 18:39 4 mg ONCE ONE Administration <Shelia Min, MARSH BUGGY OPERATOR - Last Filed: 01/30/23 19:39> Medications Administered Discontinued Medications Generic Name Dose Route Start Last Admin Trade Name Evanq PRN Reason Stop Dose Admin Acetaminophen 650 mg 01/30/23 21:50 01/30/23 21:56 Acetaminophen 325 Mg Tablet PO 01/30/23 21:51 650 mg ONCE ONE Administration Albuterol Sulfate 2 puff 01/30/23 17:20 01/30/23 17:28 Albuterol Sulfate 90 Mcg 8 Gm Inhaler INHALE 01/30/23 17:21 2 puff ONCE ONE Administration Albuterol Sulfate 5 mg/ 0 mg 01/30/23 17:30 01/30/23 17:47 Ipratropium [place] 0.5 mg INHALE 01/30/23 17:31 5 each ONCE ONE Administration Iohexol 100 ml 01/30/23 20:02 01/30/23 20:03 Iohexol 350 Mg/Ml 100 Ml Infus..Btl IV 01/30/23 20:03 85 ml ONCE ONE Administration Ondansetron HCl 4 mg 01/30/23 18:38 01/30/23 18:42 Ondansetron Odt 4 Mg Tab.Rapdis TRANSLINGU 01/30/23 18:39 4 mg ONCE ONE Administration <Ashley rFey, MARSH BUGGY OPERATOR - Last Filed: 01/30/23 22:06> Medical Decision Making Medical Decision Making [facility] Narrative: 57-year-old female here with complaints of sore throat, cough, chest discomfort with coughing, shortness of breath, wheezing, some bloody streaked sputum noted the last 2 days although all their symptoms of a going on for several weeks. Unrelieved with albuterol at home. On arrival exam is benign. Posterior oropharynx is normal. Lungs are clear. Vitals are stable. Will obtain EKG, labs, chest x-ray, viral testing patient also complaining of some abdominal distension and discomfort with vomiting since yesterday. Patient had BM this morning that was loose. On exam mild diffuse abdominal tenderness. Normal bowel sounds. No vomiting here. Will check labs and UA <Shelia Min NP - Last Filed: 01/30/23 19:39> Differential Diagnosis Differential Diagnoses: The differential diagnosis associated with the presentation includes <Shelia Min NP - Last Filed: 01/30/23 19:39> low concern for acute abdominal pathology likely viral gastroenteritis, viral syndrome. less likely diverticulitis, bowel obstruction, pancreatitis consider PE- less likely with no hypoxia, no tachypnea, no tachycardia, no clinical findings concerning- for DVT D-dimer negative consider pneumonia, viral syndrome, asthma exacerbation <Shelia Min NP - Last Filed: 01/30/23 19:39> Lab Data [facility] Lab Attestation statement: I reviewed the patient's lab results. <Shelia Min NP - Last Filed: 01/30/23 19:39> Result Diagrams: 01/30/23 18:25 01/30/23 18:25 <Philippe Guerrero - Last Filed: 01/30/23 15:08> Labs: Lab Results 01/30/23 01/30/23 01/30/23 Range/Units 17:21 17:21 18:25 WBC (4.8-10.8) X10*3/uL RBC (4.20-5.50) X10*6/uL Hgb (12.0-16.0) g/dl Hct (37.0-47.0) % MCV (80.0-98.0) fL MCH (27.0-33.0) pg MCHC (31.0-35.0) g/dl RDW (11.0-16.0) % Plt Count (160-400) X10*3/uL MPV (9.4-12.3) fL Immature Gran % (Auto) (0.0-0.4) % Neut % (Auto) (45-73) % Lymph % (Auto) (20-40) % [place] % (Auto) (2-11) % Eos % (Auto) (0-4) % Baso % (Auto) (0-2) % Lymph # (Auto) (1.2-4.9) X10*3/uL [place] # (Auto) (0.1-1.2) X10*3/uL Eos # (Auto) (0.0-0.4) X10*3/uL Baso # (Auto) (0.0-0.2) X10*3/uL Abs Immat Gran (auto) (0.00-0.03) X10*3/uL Absolute Neuts (auto) (2.0-8.3) x10*3/uL Absolute Nucleated RBC (0.0-0.012) X10*3/uL Nucleated RBC % (auto) (0.0-0.2) /100WBC PT (10.0-13.1) SEC INR (0.9-1.1) D-Dimer High Sensitivty < 150 NG/ML Sodium (135-145) mmol/L Potassium (3.3-5.1) mmol/L Chloride (96-108) mmol/L Carbon Dioxide (22-29) mmol/L Anion Gap (12-20) BUN (9-16) mg/dL Creatinine (0.5-1.4) mg/dL Estim Creat Clear Calc Estimated GFR Random Glucose (60-115) mg/dL Calcium (8.4-10.2) mg/dL Total Bilirubin (0.0-1.0) mg/dL Direct Bilirubin (0.0-0.5) mg/dL AST (5-31) U/L ALT (0-31) U/L Alkaline Phosphatase (39-117) U/L Total Protein (6.5-8.0) g/dL Albumin (3.5-5.0) g/dL Lipase (8-78) U/L Urine Color Urine Appearance Urine pH (5.0-9.0) Ur Specific [place] (1.005-1.025) Urine Protein (Neg-Trace) mg/dL Urine Glucose (UA) (Negative) mg/dL Urine Ketones (Negative) mg/dL Urine Blood (Negative) Urine Nitrite (Negative) Ur Leukocyte Esterase (Negative) Urine RBC (0-2) /HPF Urine WBC (0-5) /HPF Ur Squamous Epith Cells (0-2) /HPF Urine Bacteria (None Seen) Hyaline Casts (0-2) /LPF COVID-19 ([facility]) Negative (Negative) COVID-19 Clin Com See Note Influenza Type A (JAMES) Negative (Negative) Influenza Type B (JAMES) Negative (Negative) Influenza A & B Note See Note 01/30/23 01/30/23 01/30/23 Range/Units 18:25 18:25 18:25 WBC 7.2 (4.8-10.8) X10*3/uL RBC 4.73 (4.20-5.50) X10*6/uL Hgb 13.2 (12.0-16.0) g/dl Hct 41.0 (37.0-47.0) % MCV 86.7 (80.0-98.0) fL MCH 27.9 (27.0-33.0) pg MCHC 32.2 (31.0-35.0) g/dl RDW 15.0 (11.0-16.0) % Plt Count 384 (160-400) X10*3/uL MPV 8.4 L (9.4-12.3) fL Immature Gran % (Auto) 0.1 (0.0-0.4) % Neut % (Auto) 55.1 (45-73) % Lymph % (Auto) 33.5 (20-40) % [place] % (Auto) 7.4 (2-11) % Eos % (Auto) 3.5 (0-4) % Baso % (Auto) 0.4 (0-2) % Lymph # (Auto) 2.4 (1.2-4.9) X10*3/uL [place] # (Auto) 0.5 (0.1-1.2) X10*3/uL Eos # (Auto) 0.3 (0.0-0.4) X10*3/uL Baso # (Auto) 0.0 (0.0-0.2) X10*3/uL Abs Immat Gran (auto) 0.01 (0.00-0.03) X10*3/uL Absolute Neuts (auto) 4.0 (2.0-8.3) x10*3/uL Absolute Nucleated RBC 0.000 (0.0-0.012) X10*3/uL Nucleated RBC % (auto) 0.0 (0.0-0.2) /100WBC PT 10.3 (10.0-13.1) SEC INR 0.9 (0.9-1.1) D-Dimer High Sensitivty NG/ML Sodium 144 (135-145) mmol/L Potassium 4.2 (3.3-5.1) mmol/L Chloride 104 (96-108) mmol/L Carbon Dioxide 31 H (22-29) mmol/L Anion Gap 13 (12-20) BUN 13 (9-16) mg/dL Creatinine 0.81 (0.5-1.4) mg/dL Estim Creat Clear Calc 71.4 Estimated GFR > 60 Random Glucose 100 (60-115) mg/dL Calcium 9.2 (8.4-10.2) mg/dL Total Bilirubin 0.2 (0.0-1.0) mg/dL Direct Bilirubin < 0.2 (0.0-0.5) mg/dL AST 16 (5-31) U/L ALT 15 (0-31) U/L Alkaline Phosphatase 91 (39-117) U/L Total Protein 7.1 (6.5-8.0) g/dL Albumin 4.1 (3.5-5.0) g/dL Lipase 144 H (8-78) U/L Urine Color Urine Appearance Urine pH (5.0-9.0) Ur Specific [place] (1.005-1.025) Urine Protein (Neg-Trace) mg/dL Urine Glucose (UA) (Negative) mg/dL Urine Ketones (Negative) mg/dL Urine Blood (Negative) Urine Nitrite (Negative) Ur Leukocyte Esterase (Negative) Urine RBC (0-2) /HPF Urine WBC (0-5) /HPF Ur Squamous Epith Cells (0-2) /HPF Urine Bacteria (None Seen) Hyaline Casts (0-2) /LPF COVID-19 ([facility]) (Negative) COVID-19 Clin Com Influenza Type A (JAMES) (Negative) Influenza Type B (JAMES) (Negative) Influenza A & B Note 01/30/23 Range/Units 18:31 WBC (4.8-10.8) X10*3/uL RBC (4.20-5.50) X10*6/uL Hgb (12.0-16.0) g/dl Hct (37.0-47.0) % MCV (80.0-98.0) fL MCH (27.0-33.0) pg MCHC (31.0-35.0) g/dl RDW (11.0-16.0) % Plt Count (160-400) X10*3/uL MPV (9.4-12.3) fL Immature Gran % (Auto) (0.0-0.4) % Neut % (Auto) (45-73) % Lymph % (Auto) (20-40) % [place] % (Auto) (2-11) % Eos % (Auto) (0-4) % Baso % (Auto) (0-2) % Lymph # (Auto) (1.2-4.9) X10*3/uL [place] # (Auto) (0.1-1.2) X10*3/uL Eos # (Auto) (0.0-0.4) X10*3/uL Baso # (Auto) (0.0-0.2) X10*3/uL Abs Immat Gran (auto) (0.00-0.03) X10*3/uL Absolute Neuts (auto) (2.0-8.3) x10*3/uL Absolute Nucleated RBC (0.0-0.012) X10*3/uL Nucleated RBC % (auto) (0.0-0.2) /100WBC PT (10.0-13.1) SEC INR (0.9-1.1) D-Dimer High Sensitivty NG/ML Sodium (135-145) mmol/L Potassium (3.3-5.1) mmol/L Chloride (96-108) mmol/L Carbon Dioxide (22-29) mmol/L Anion Gap (12-20) BUN (9-16) mg/dL Creatinine (0.5-1.4) mg/dL Estim Creat Clear Calc Estimated GFR Random Glucose (60-115) mg/dL Calcium (8.4-10.2) mg/dL Total Bilirubin (0.0-1.0) mg/dL Direct Bilirubin (0.0-0.5) mg/dL AST (5-31) U/L ALT (0-31) U/L Alkaline Phosphatase (39-117) U/L Total Protein (6.5-8.0) g/dL Albumin (3.5-5.0) g/dL Lipase (8-78) U/L Urine Color Yellow Urine Appearance Clear Urine pH 7.0 (5.0-9.0) Ur Specific [place] 1.020 (1.005-1.025) Urine Protein Negative (Neg-Trace) mg/dL Urine Glucose (UA) Negative (Negative) mg/dL Urine Ketones Trace (Negative) mg/dL Urine Blood Negative (Negative) Urine Nitrite Negative (Negative) Ur Leukocyte Esterase Trace H (Negative) Urine RBC 0-2 (0-2) /HPF Urine WBC 0-5 (0-5) /HPF Ur Squamous Epith Cells 0-2 (0-2) /HPF Urine Bacteria None Seen (None Seen) Hyaline Casts 0-2 (0-2) /LPF COVID-19 ([facility]) (Negative) COVID-19 Clin Com Influenza Type A (JAMES) (Negative) Influenza Type B ([facility]AMES) (Negative) Influenza A & B Note <Philippe Guerrero - Last Filed: 01/30/23 15:08> Lab Results 01/30/23 01/30/23 01/30/23 Range/Units 17:21 17:21 18:25 WBC (4.8-10.8) X10*3/uL RBC (4.20-5.50) X10*6/uL Hgb (12.0-16.0) g/dl Hct (37.0-47.0) % MCV (80.0-98.0) fL MCH (27.0-33.0) pg MCHC (31.0-35.0) g/dl RDW (11.0-16.0) % Plt Count (160-400) X10*3/uL MPV (9.4-12.3) fL Immature Gran % (Auto) (0.0-0.4) % Neut % (Auto) (45-73) % Lymph % (Auto) (20-40) % [place] % (Auto) (2-11) % Eos % (Auto) (0-4) % Baso % (Auto) (0-2) % Lymph # (Auto) (1.2-4.9) X10*3/uL [place] # (Auto) (0.1-1.2) X10*3/uL Eos # (Auto) (0.0-0.4) X10*3/uL Baso # (Auto) (0.0-0.2) X10*3/uL Abs Immat Gran (auto) (0.00-0.03) X10*3/uL Absolute Neuts (auto) (2.0-8.3) x10*3/uL Absolute Nucleated RBC (0.0-0.012) X10*3/uL Nucleated RBC % (auto) (0.0-0.2) /100WBC PT (10.0-13.1) SEC INR (0.9-1.1) D-Dimer High Sensitivty < 150 NG/ML Sodium (135-145) mmol/L Potassium (3.3-5.1) mmol/L Chloride (96-108) mmol/L Carbon Dioxide (22-29) mmol/L Anion Gap (12-20) BUN (9-16) mg/dL Creatinine (0.5-1.4) mg/dL Estim Creat Clear Calc Estimated GFR Random Glucose (60-115) mg/dL Calcium (8.4-10.2) mg/dL Total Bilirubin (0.0-1.0) mg/dL Direct Bilirubin (0.0-0.5) mg/dL AST (5-31) U/L ALT (0-31) U/L Alkaline Phosphatase (39-117) U/L Total Protein (6.5-8.0) g/dL Albumin (3.5-5.0) g/dL Lipase (8-78) U/L Urine Color Urine Appearance Urine pH (5.0-9.0) Ur Specific [place] (1.005-1.025) Urine Protein (Neg-Trace) mg/dL Urine Glucose (UA) (Negative) mg/dL Urine Ketones (Negative) mg/dL Urine Blood (Negative) Urine Nitrite (Negative) Ur Leukocyte Esterase (Negative) Urine RBC (0-2) /HPF Urine WBC (0-5) /HPF Ur Squamous Epith Cells (0-2) /HPF Urine Bacteria (None Seen) Hyaline Casts (0-2) /LPF COVID-19 ([facility]) Negative (Negative) COVID-19 Clin Com See Note Influenza Type A (JAMES) Negative (Negative) Influenza Type B (JAMES) Negative (Negative) Influenza A & B Note See Note 01/30/23 01/30/23 01/30/23 Range/Units 18:25 18:25 18:25 WBC 7.2 (4.8-10.8) X10*3/uL RBC 4.73 (4.20-5.50) X10*6/uL Hgb 13.2 (12.0-16.0) g/dl Hct 41.0 (37.0-47.0) % MCV 86.7 (80.0-98.0) fL MCH 27.9 (27.0-33.0) pg MCHC 32.2 (31.0-35.0) g/dl RDW 15.0 (11.0-16.0) % Plt Count 384 (160-400) X10*3/uL MPV 8.4 L (9.4-12.3) fL Immature Gran % (Auto) 0.1 (0.0-0.4) % Neut % (Auto) 55.1 (45-73) % Lymph % (Auto) 33.5 (20-40) % [place] % (Auto) 7.4 (2-11) % Eos % (Auto) 3.5 (0-4) % Baso % (Auto) 0.4 (0-2) % Lymph # (Auto) 2.4 (1.2-4.9) X10*3/uL [place] # (Auto) 0.5 (0.1-1.2) X10*3/uL Eos # (Auto) 0.3 (0.0-0.4) X10*3/uL Baso # (Auto) 0.0 (0.0-0.2) X10*3/uL Abs Immat Gran (auto) 0.01 (0.00-0.03) X10*3/uL Absolute Neuts (auto) 4.0 (2.0-8.3) x10*3/uL Absolute Nucleated RBC 0.000 (0.0-0.012) X10*3/uL Nucleated RBC % (auto) 0.0 (0.0-0.2) /100WBC PT 10.3 (10.0-13.1) SEC INR 0.9 (0.9-1.1) D-Dimer High Sensitivty NG/ML Sodium 144 (135-145) mmol/L Potassium 4.2 (3.3-5.1) mmol/L Chloride 104 (96-108) mmol/L Carbon Dioxide 31 H (22-29) mmol/L Anion Gap 13 (12-20) BUN 13 (9-16) mg/dL Creatinine 0.81 (0.5-1.4) mg/dL Estim Creat Clear Calc 71.4 Estimated GFR > 60 Random Glucose 100 (60-115) mg/dL Calcium 9.2 (8.4-10.2) mg/dL Total Bilirubin 0.2 (0.0-1.0) mg/dL Direct Bilirubin < 0.2 (0.0-0.5) mg/dL AST 16 (5-31) U/L ALT 15 (0-31) U/L Alkaline Phosphatase 91 (39-117) U/L Total Protein 7.1 (6.5-8.0) g/dL Albumin 4.1 (3.5-5.0) g/dL Lipase 144 H (8-78) U/L Urine Color Urine Appearance Urine pH (5.0-9.0) Ur Specific [place] (1.005-1.025) Urine Protein (Neg-Trace) mg/dL Urine Glucose (UA) (Negative) mg/dL Urine Ketones (Negative) mg/dL Urine Blood (Negative) Urine Nitrite (Negative) Ur Leukocyte Esterase (Negative) Urine RBC (0-2) /HPF Urine WBC (0-5) /HPF Ur Squamous Epith Cells (0-2) /HPF Urine Bacteria (None Seen) Hyaline Casts (0-2) /LPF COVID-19 ([facility]) (Negative) COVID-19 Clin Com Influenza Type A (JAMES) (Negative) Influenza Type B (JAMES) (Negative) Influenza A & B Note 01/30/23 Range/Units 18:31 WBC (4.8-10.8) X10*3/uL RBC (4.20-5.50) X10*6/uL Hgb (12.0-16.0) g/dl Hct (37.0-47.0) % MCV (80.0-98.0) fL MCH (27.0-33.0) pg MCHC (31.0-35.0) g/dl RDW (11.0-16.0) % Plt Count (160-400) X10*3/uL MPV (9.4-12.3) fL Immature Gran % (Auto) (0.0-0.4) % Neut % (Auto) (45-73) % Lymph % (Auto) (20-40) % [place] % (Auto) (2-11) % Eos % (Auto) (0-4) % Baso % (Auto) (0-2) % Lymph # (Auto) (1.2-4.9) X10*3/uL [place] # (Auto) (0.1-1.2) X10*3/uL Eos # (Auto) (0.0-0.4) X10*3/uL Baso # (Auto) (0.0-0.2) X10*3/uL Abs Immat Gran (auto) (0.00-0.03) X10*3/uL Absolute Neuts (auto) (2.0-8.3) x10*3/uL Absolute Nucleated RBC (0.0-0.012) X10*3/uL Nucleated RBC % (auto) (0.0-0.2) /100WBC PT (10.0-13.1) SEC INR (0.9-1.1) D-Dimer High Sensitivty NG/ML Sodium (135-145) mmol/L Potassium (3.3-5.1) mmol/L Chloride (96-108) mmol/L Carbon Dioxide (22-29) mmol/L Anion Gap (12-20) BUN (9-16) mg/dL Creatinine (0.5-1.4) mg/dL Estim Creat Clear Calc Estimated GFR Random Glucose (60-115) mg/dL Calcium (8.4-10.2) mg/dL Total Bilirubin (0.0-1.0) mg/dL Direct Bilirubin (0.0-0.5) mg/dL AST (5-31) U/L ALT (0-31) U/L Alkaline Phosphatase (39-117) U/L Total Protein (6.5-8.0) g/dL Albumin (3.5-5.0) g/dL Lipase (8-78) U/L Urine Color Yellow Urine Appearance Clear Urine pH 7.0 (5.0-9.0) Ur Specific [place] 1.020 (1.005-1.025) Urine Protein Negative (Neg-Trace) mg/dL Urine Glucose (UA) Negative (Negative) mg/dL Urine Ketones Trace (Negative) mg/dL Urine Blood Negative (Negative) Urine Nitrite Negative (Negative) Ur Leukocyte Esterase Trace H (Negative) Urine RBC 0-2 (0-2) /HPF Urine WBC 0-5 (0-5) /HPF Ur Squamous Epith Cells 0-2 (0-2) /HPF Urine Bacteria None Seen (None Seen) Hyaline Casts 0-2 (0-2) /LPF COVID-19 ([facility]) (Negative) COVID-19 Clin Com Influenza Type A (JAMES) (Negative) Influenza Type B (JAMES) (Negative) Influenza A & B Note <Shelia Min, [employer] OPERATOR - Last Filed: 01/30/23 19:39> Lab Results 01/30/23 01/30/23 01/30/23 Range/Units 17:21 17:21 18:25 WBC (4.8-10.8) X10*3/uL RBC (4.20-5.50) X10*6/uL Hgb (12.0-16.0) g/dl Hct (37.0-47.0) % MCV (80.0-98.0) fL MCH (27.0-33.0) pg MCHC (31.0-35.0) g/dl RDW (11.0-16.0) % Plt Count (160-400) X10*3/uL MPV (9.4-12.3) fL Immature Gran % (Auto) (0.0-0.4) % Neut % (Auto) (45-73) % Lymph % (Auto) (20-40) % [place] % (Auto) (2-11) % Eos % (Auto) (0-4) % Baso % (Auto) (0-2) % Lymph # (Auto) (1.2-4.9) X10*3/uL [place] # (Auto) (0.1-1.2) X10*3/uL Eos # (Auto) (0.0-0.4) X10*3/uL Baso # (Auto) (0.0-0.2) X10*3/uL Abs Immat Gran (auto) (0.00-0.03) X10*3/uL Absolute Neuts (auto) (2.0-8.3) x10*3/uL Absolute Nucleated RBC (0.0-0.012) X10*3/uL Nucleated RBC % (auto) (0.0-0.2) /100WBC PT (10.0-13.1) SEC INR (0.9-1.1) D-Dimer High Sensitivty < 150 NG/ML Sodium (135-145) mmol/L Potassium (3.3-5.1) mmol/L Chloride (96-108) mmol/L Carbon Dioxide (22-29) mmol/L Anion Gap (12-20) BUN (9-16) mg/dL Creatinine (0.5-1.4) mg/dL Estim Creat Clear Calc Estimated GFR Random Glucose (60-115) mg/dL Calcium (8.4-10.2) mg/dL Total Bilirubin (0.0-1.0) mg/dL Direct Bilirubin (0.0-0.5) mg/dL AST (5-31) U/L ALT (0-31) U/L Alkaline Phosphatase (39-117) U/L Total Protein (6.5-8.0) g/dL Albumin (3.5-5.0) g/dL Lipase (8-78) U/L Urine Color Urine Appearance Urine pH (5.0-9.0) Ur Specific [place] (1.005-1.025) Urine Protein (Neg-Trace) mg/dL Urine Glucose (UA) (Negative) mg/dL Urine Ketones (Negative) mg/dL Urine Blood (Negative) Urine Nitrite (Negative) Ur Leukocyte Esterase (Negative) Urine RBC (0-2) /HPF Urine WBC (0-5) /HPF Ur Squamous Epith Cells (0-2) /HPF Urine Bacteria (None Seen) Hyaline Casts (0-2) /LPF COVID-19 ([facility]) Negative (Negative) COVID-19 Clin Com See Note Influenza Type A (JAMES) Negative (Negative) Influenza Type B (JAMES) Negative (Negative) Influenza A & B Note See Note 01/30/23 01/30/23 01/30/23 Range/Units 18:25 18:25 18:25 WBC 7.2 (4.8-10.8) X10*3/uL RBC 4.73 (4.20-5.50) X10*6/uL Hgb 13.2 (12.0-16.0) g/dl Hct 41.0 (37.0-47.0) % MCV 86.7 (80.0-98.0) fL MCH 27.9 (27.0-33.0) pg MCHC 32.2 (31.0-35.0) g/dl RDW 15.0 (11.0-16.0) % Plt Count 384 (160-400) X10*3/uL MPV 8.4 L (9.4-12.3) fL Immature Gran % (Auto) 0.1 (0.0-0.4) % Neut % (Auto) 55.1 (45-73) % Lymph % (Auto) 33.5 (20-40) % [place] % (Auto) 7.4 (2-11) % Eos % (Auto) 3.5 (0-4) % Baso % (Auto) 0.4 (0-2) % Lymph # (Auto) 2.4 (1.2-4.9) X10*3/uL [place] # (Auto) 0.5 (0.1-1.2) X10*3/uL Eos # (Auto) 0.3 (0.0-0.4) X10*3/uL Baso # (Auto) 0.0 (0.0-0.2) X10*3/uL Abs Immat Gran (auto) 0.01 (0.00-0.03) X10*3/uL Absolute Neuts (auto) 4.0 (2.0-8.3) x10*3/uL Absolute Nucleated RBC 0.000 (0.0-0.012) X10*3/uL Nucleated RBC % (auto) 0.0 (0.0-0.2) /100WBC PT 10.3 (10.0-13.1) SEC INR 0.9 (0.9-1.1) D-Dimer High Sensitivty NG/ML Sodium 144 (135-145) mmol/L Potassium 4.2 (3.3-5.1) mmol/L Chloride 104 (96-108) mmol/L Carbon Dioxide 31 H (22-29) mmol/L Anion Gap 13 (12-20) BUN 13 (9-16) mg/dL Creatinine 0.81 (0.5-1.4) mg/dL Estim Creat Clear Calc 71.4 Estimated GFR > 60 Random Glucose 100 (60-115) mg/dL Calcium 9.2 (8.4-10.2) mg/dL Total Bilirubin 0.2 (0.0-1.0) mg/dL Direct Bilirubin < 0.2 (0.0-0.5) mg/dL AST 16 (5-31) U/L ALT 15 (0-31) U/L Alkaline Phosphatase 91 (39-117) U/L Total Protein 7.1 (6.5-8.0) g/dL Albumin 4.1 (3.5-5.0) g/dL Lipase 144 H (8-78) U/L Urine Color Urine Appearance Urine pH (5.0-9.0) Ur Specific [place] (1.005-1.025) Urine Protein (Neg-Trace) mg/dL Urine Glucose (UA) (Negative) mg/dL Urine Ketones (Negative) mg/dL Urine Blood (Negative) Urine Nitrite (Negative) Ur Leukocyte Esterase (Negative) Urine RBC (0-2) /HPF Urine WBC (0-5) /HPF Ur Squamous Epith Cells (0-2) /HPF Urine Bacteria (None Seen) Hyaline Casts (0-2) /LPF COVID-19 ([facility]) (Negative) COVID-19 Clin Com Influenza Type A (JAMES) (Negative) Influenza Type B (JAMES) (Negative) Influenza A & B Note 01/30/23 Range/Units 18:31 WBC (4.8-10.8) X10*3/uL RBC (4.20-5.50) X10*6/uL Hgb (12.0-16.0) g/dl Hct (37.0-47.0) % MCV (80.0-98.0) fL MCH (27.0-33.0) pg MCHC (31.0-35.0) g/dl RDW (11.0-16.0) % Plt Count (160-400) X10*3/uL MPV (9.4-12.3) fL Immature Gran % (Auto) (0.0-0.4) % Neut % (Auto) (45-73) % Lymph % (Auto) (20-40) % [place] % (Auto) (2-11) % Eos % (Auto) (0-4) % Baso % (Auto) (0-2) % Lymph # (Auto) (1.2-4.9) X10*3/uL [place] # (Auto) (0.1-1.2) X10*3/uL Eos # (Auto) (0.0-0.4) X10*3/uL Baso # (Auto) (0.0-0.2) X10*3/uL Abs Immat Gran (auto) (0.00-0.03) X10*3/uL Absolute Neuts (auto) (2.0-8.3) x10*3/uL Absolute Nucleated RBC (0.0-0.012) X10*3/uL Nucleated RBC % (auto) (0.0-0.2) /100WBC PT (10.0-13.1) SEC INR (0.9-1.1) D-Dimer High Sensitivty NG/ML Sodium (135-145) mmol/L Potassium (3.3-5.1) mmol/L Chloride (96-108) mmol/L Carbon Dioxide (22-29) mmol/L Anion Gap (12-20) BUN (9-16) mg/dL Creatinine (0.5-1.4) mg/dL Estim Creat Clear Calc Estimated GFR Random Glucose (60-115) mg/dL Calcium (8.4-10.2) mg/dL Total Bilirubin (0.0-1.0) mg/dL Direct Bilirubin (0.0-0.5) mg/dL AST (5-31) U/L ALT (0-31) U/L Alkaline Phosphatase (39-117) U/L Total Protein (6.5-8.0) g/dL Albumin (3.5-5.0) g/dL Lipase (8-78) U/L Urine Color Yellow Urine Appearance Clear Urine pH 7.0 (5.0-9.0) Ur Specific [place] 1.020 (1.005-1.025) Urine Protein Negative (Neg-Trace) mg/dL Urine Glucose (UA) Negative (Negative) mg/dL Urine Ketones Trace (Negative) mg/dL Urine Blood Negative (Negative) Urine Nitrite Negative (Negative) Ur Leukocyte Esterase Trace H (Negative) Urine RBC 0-2 (0-2) /HPF Urine WBC 0-5 (0-5) /HPF Ur Squamous Epith Cells 0-2 (0-2) /HPF Urine Bacteria None Seen (None Seen) Hyaline Casts 0-2 (0-2) /LPF COVID-19 ([facility]) (Negative) COVID-19 Clin Com Influenza Type A (JAMES) (Negative) Influenza Type B (JAMES) (Negative) Influenza A & B Note <Ashley Frey NP - Last Filed: 01/30/23 22:06> Independent Interpretation I performed an independent interpretation of an: EKG and Plain X-Ray <Shelia Min NP - Last Filed: 01/30/23 19:39> Interpretation: I independently reviewed the chest x-ray and agree with radiologist's report I indepentely y reviewed the EKG which shows normal sinus rhythm with a rate of 74, normal ND, normal QRS, normal QT <Shelia Min NP - Last Filed: 01/30/23 19:39> Radiology Impression Discussion of test interpretation with radiology: I have reviewed the radiologist's reading. <Shelia Min NP - Last Filed: 01/30/23 19:39> Radiologist Impression: [address] [address] XRay Report Signed Patient: Linda Scherer MR#: [id number] : 1965 Acct:[id number] Age/Sex: 57 / F ADM Date: 01/30/23 Loc: HO.ED Attending Dr: Ordering Physician: Philippe Guerrero Date of Service: 01/30/23 Procedure(s): XR chest 2V Accession Number(s): [id number] cc: Philippe Guerrero ~ EXAMINATION: XR CHEST CLINICAL INFORMATION: Pain COMPARISON: 10/17/2022 TECHNIQUE: 2 views of the chest were obtained. FINDINGS: Normal symmetric lung volumes. No parenchymal consolidation. No pleural effusion. No pneumothorax.? Cardiomediastinal silhouette and pulmonary vascularity are within normal limits. No acute osseous abnormalities. XR/XR chest 2V IMPRESSION: No acute findings <Shelia Min NP - Last Filed: 01/30/23 19:39> [place] [address] XRay Report Signed Patient: Linda Scherer MR#: [id number] : 1965 Acct:[id number] Age/Sex: 57 / F ADM Date: 01/30/23 Loc: .ED Attending Dr: Ordering Physician: Philippe Guerrero Date of Service: 01/30/23 Procedure(s): XR chest 2V Accession Number(s): [id number] cc: Philippe Guerrero ~ EXAMINATION: XR CHEST CLINICAL INFORMATION: Pain COMPARISON: 10/17/2022 TECHNIQUE: 2 views of the chest were obtained. FINDINGS: Normal symmetric lung volumes. No parenchymal consolidation. No pleural effusion. No pneumothorax.? Cardiomediastinal silhouette and pulmonary vascularity are within normal limits. No acute osseous abnormalities. XR/XR chest 2V IMPRESSION: No acute findings EXAMINATION: CT ABDOMEN AND PELVIS WITH CONTRAST? CLINICAL INFORMATION: Pain, vomiting, elevated lipase, rule out pancreatitis COMPARISON: 02/10/2019? TECHNIQUE: Multidetector volumetric images were obtained from the superior aspect of the liver through the pubic symphysis following administration 85 mL of Omnipaque 350 intravenous contrast. Sagittal and coronal reformatted images were obtained on the technologist's workstation.? Oral contrast: No This CT examination was performed using dose optimization techniques as appropriate, variously including the following: *Automated exposure control *Adjustment of mA and/or kV according to patient size (this includes techniques or standardized protocols for targeted exams where dose is matched to indication/reason for exam; i.e. extremities or head) *Use of iterative reconstruction technique DLP: 645 mGy-cm FINDINGS: LUNG BASES: Small groundglass density at the left lung base on image 11. Measures 8 mm.? LIVER, GALLBLADDER, AND BILIARY TREE: The liver is normal in size, shape, and attenuation. No focal hepatic lesion or biliary ductal dilatation is present. The gallbladder is unremarkable with no evidence of radiopaque gallstones, gallbladder wall thickening, or obvious pericholecystic inflammatory changes.? PANCREAS: There is some heterogeneous low density within the pancreatic head.? SPLEEN: Unremarkable.? ADRENAL GLANDS: Unremarkable.? KIDNEYS AND URETERS: The kidneys are normal in size, shape, and attenuation. No hydronephrosis, hydroureter, or calculi seen. No perinephric stranding. ? BLADDER: Bladder is decompressed? GASTROINTESTINAL TRACT: Diverticula disease. No evidence for diverticulitis. Nonobstructing bowel pattern.? ABDOMINAL WALL: No significant hernia is appreciated.? LYMPH NODES: There is no bulky adenopathy. VASCULAR: Atherosclerotic changes are noted PELVIC VISCERA: Unremarkable.? OSSEOUS STRUCTURES: Unremarkable.? CT/CT abdomen pelvis w IV con IMPRESSION: Mildly heterogeneous appearance to the pancreatic head. Given the history sequela of pancreatitis would need to be considered. Follow-up recommended as an underlying lesion cannot be excluded. No suspicious fluid collection or soft tissue stranding in the region is noted ? Otherwise some scattered diverticula disease without evidence for diverticulitis ? Note is made of ground glass nodularity left base. This could be inflammatory. Groundglass nodularity needs to be considered. Therefore recommend full CT of the chest for complete evaluation. This may be done an outpatient basis. ? ? ? Fleischner guidelines were followed. <Ashley Frey NP - Last Filed: 01/30/23 22:06> Discharge Plan Discharge Clinical Impression: Bronchitis, Abdominal pain <Philippe Guerrero - Last Filed: 01/30/23 15:08> Patient Disposition: Home, Self-Care <Philippe Guerrero - Last Filed: 01/30/23 15:08> Instructions: Acute Bronchitis (ED), Abdominal Pain (ED) <Philippe Yolanda - Last Filed: 01/30/23 15:08> Additional Instructions: pinedo radiograf?a es normal. Dana pruebas de gripe y COVID son negativas. Pinedo trabajo de laboratorio es todo normal. Pinedo tomograf?a computarizada abdominal es normal. Comience con l?quidos nico y aumente pinedo dieta seg?n lo tolere. [place] los medicamentos seg?n lo prescrito. Contin?e con pinedo inhalador en casa. <Philippe Guerrero - Last Filed: 01/30/23 15:08> Prescriptions: New azithromycin 250 mg tablet See Rx Instructions .ROUTE .COMPLEX Qty: 6 0RF Rx Instructions: For 250 mg dose pack: take 500 mg today (day 1), then 250 mg for 4 days (days 2-5) prednisone 20 mg tablet 40 mg PO DAILY Qty: 10 0RF ondansetron 4 mg tablet,disintegrating 4 mg PO Q6H PRN (Reason: nausea and vomiting) Qty: 10 0RF No Action oxybutynin chloride 10 mg tablet extended release 24hr 10 mg PO DAILY 90 Days Qty: 90 1RF duloxetine 60 mg capsule,delayed release(DR/EC) 60 mg PO DAILY lidocaine 4 % adhesive patch,medicated 1 patch topical DAILY PRN (Reason: Pain, Mild) Rx Instructions: may leave on for up to 12 hrs cyclobenzaprine 10 mg tablet 10 mg PO TID gabapentin 300 mg capsule 300 mg PO TID amlodipine 5 mg tablet 5 mg PO QAM nortriptyline 75 mg capsule 75 mg PO TID PRN (Reason: pain) pantoprazole 40 mg tablet,delayed release (DR/EC) 40 mg PO mirtazapine 30 mg tablet 30 mg PO BEDTIME sertraline 50 mg tablet 50 mg PO QAM buspirone 15 mg tablet 15 mg PO TID multivitamin Tablet 1 tab PO QAM simethicone 180 mg capsule 180 mg PO DAILY PRN (Reason: gas) tizanidine 4 mg tablet 4 mg PO Q6-8H PRN (Reason: Muscle Spasm) docusate sodium 100 mg capsule 100 mg PO BID albuterol sulfate [ProAir HFA] 90 mcg/actuation HFA aerosol inhaler 2 puff inhalation Q6H PRN (Reason: dyspnea) <Philippe Guerrero - Last Filed: 01/30/23 15:08> Referrals: Marisol Tatum MD [Primary Care Provider] - 1 week <Philippe Guerrero - Last Filed: 01/30/23 15:08> Print Language: Samoan <Philippe Guerrero - Last Filed: 01/30/23 15:08>
[2023-01-30 16:50] VITALS: BP 153/62; PULSE 83; RESP 18; TEMP 36.4; O2SAT 100
[2023-01-30] MEDS: Albuterol Sulfate 90 MCG 8 GM INHALER 2 PUFF INHALE (17:28)
[2023-01-30 17:53] LABS: COVID-19 Test Negative (Negative); IDNOW Serial# BCCEAD1C
[2023-01-30 17:54] VITALS: PULSE 87; RESP 18; O2SAT 98
[2023-01-30 17:54] LABS: IDNOW Serial# 9DB6401D; Influenza A Negative (Negative); Influenza B2 Negative (Negative)
[2023-01-30 18:30] LABS: MANUAL DIFF FLAG NO
[2023-01-30 18:31] LABS: Basophils Percent Auto 0.4 % (0-2); Eosinophils Absolute Auto 0.3 X10*3/uL (0.0-0.4); Eosinophils Percent Auto 3.5 % (0-4); Hemoglobin 13.2 g/dl (12.0-16.0); Imm Gran Abs Auto 0.01 X10*3/uL (0.00-0.03); Imm Gran Pct Auto 0.1 % (0.0-0.4); Lymphocytes Absolute Auto 2.4 X10*3/uL (1.2-4.9); Lymphocytes Percent Auto 33.5 % (20-40); Mean Corpuscular HGB Conc 32.2 g/dl (31.0-35.0); Mean Corpuscular Hemoglobin 27.9 pg (27.0-33.0); Mean Corpuscular Volume 86.7 fL (80.0-98.0); Mean Platelet Volume 8.4 fL (9.4-12.3); Monocytes Absolute Auto 0.5 X10*3/uL (0.1-1.2); Monocytes Percent Auto 7.4 % (2-11); Neutrophils Percent Auto 55.1 % (45-73); Platelet Count 384 X10*3/uL (160-400); Red Blood Count 4.73 X10*6/uL (4.20-5.50); White Blood Count 7.2 X10*3/uL (4.8-10.8)
[2023-01-30 18:39] LABS: INTERNATIONAL NORM RATIO 0.9 (0.9-1.1); Prothrombin Time 10.3 SEC (10.0-13.1)
[2023-01-30] MEDS: Ondansetron ODT 4 MG TAB.RAPDIS TRANSLINGU (18:42)
[2023-01-30 18:43] LABS: D Dimer High Sensitivity < 150 NG/ML
[2023-01-30 18:44] LABS: Appearance Urine Clear; Color Urine Yellow; Glucose Urine UA Negative (Negative); Leukocyte Esterase Urine Trace (Negative); Nitrite Urine Negative (Negative); UMIC TRIGGER UACC YES; Urine Blood Negative (Negative); Urine Ketones Trace mg/dL (Negative); Urine Protein Negative (Neg-Trace)
[2023-01-30 18:49] LABS: Bacteria Urine None Seen (None Seen); Hyaline Casts Urine 0-2 /LPF (0-2); RBC Urine 0-2 /HPF (0-2); Squamous Epithelial Cell Urine 0-2 /HPF (0-2); WBC Urine 0-5 /HPF (0-5)
[2023-01-30 18:52] LABS: Alanine Aminotransferase 15 U/L (0-31); Albumin Level 4.1 g/dL (3.5-5.0); Alkaline Phosphatase 91 U/L (39-117); Anion Gap 13 (12-20); Aspartate Amino Transferase 16 U/L (5-31); Bilirubin Direct < 0.2 mg/dL (0.0-0.5); Bilirubin Total 0.2 mg/dL (0.0-1.0); Blood Urea Nitrogen 13 mg/dL (9-16); Calcium 9.2 mg/dL (8.4-10.2); Carbon Dioxide 31 mmol/L (22-29); Chloride 104 mmol/L (96-108); Creatinine Clr Calc Pharmacy 71.4; Estimated Glomerular Filt Rate > 60; Glucose Random 100 mg/dL (60-115); Lipase 144 U/L (8-78); Potassium 4.2 mmol/L (3.3-5.1); Sodium 144 mmol/L (135-145); Total Protein 7.1 g/dL (6.5-8.0)
[2023-01-30] MEDS: iohexoL 350 MG/ML 100 ML INFUS..BTL IV (20:03)
[2023-01-30] MEDS: Acetaminophen 325 MG TABLET 650 MG PO (21:56)
[2023-01-30 21:57] VITALS: BP 127/59; PULSE 88; RESP 20; O2SAT 96
[2023-01-30 23:49] VITALS: BP 114/67; PULSE 83; RESP 14; TEMP 36.8; O2SAT 95
--- NOTE | 2023-01-30 23:51 | PC.NURSE ---
pt reports 4/10 pain at this time. iv removed at discharge pt ambulatory at discharge. skin pwd. VSS. pt provided with discharge packet. pt verbalized understanding of discharge plan
== END 2023-01-30 23:54 | disposition home or self-care (01) ==
PROVIDERS: Nurse Practitioner Family; Emergency Provider Emergency Medicine Emergency Medical Services; PCP Family Medicine
DX: J40 Bronchitis, not specified as acute or chronic (principal); R10.9 Unspecified abdominal pain; Z20.822 Contact with and (suspected) exposure to COVID-19; Z79.899 Other long term (current) drug therapy; Z79.891 Long term (current) use of opiate analgesic
CPT/HCPCS: 36415; 71046; 74177; 80048; 80076; 81001; 83690; 85025; 85379; 85610; 87502; 87635; 93005; 94640; 99284; 99285; Q9967

== ENCOUNTER 2023-02-06 08:49 | Emergency (ER) | payer MEDICAID, SELFPAY ==
--- NOTE | ~2023-02-06 | US_ITS ---
EXAMINATION: US ABDOMEN LIMITED CLINICAL INFORMATION: Right upper quadrant pain. COMPARISON: CT abdomen of January 30, 2023 TECHNIQUE: Real-time imaging of the right upper quadrant abdominal viscera. FINDINGS: PANCREAS: Normal. No abnormal mass or peripancreatic inflammatory change. LIVER: The liver is normal in size. The liver contour is normal. There is mildly diffusely increased echogenicity consistent with some degree of fatty infiltration. No focal hepatic lesion. There is no intrahepatic biliary duct dilatation seen. GALLBLADDER: Normal. The gallbladder is physiologically distended without evidence of stones, sludge, polyps, wall thickening or pericholecystic fluid. COMMON BILE DUCT: Normal in caliber measuring 0.5 cm in diameter. RIGHT KIDNEY: Normal. No hydronephrosis. No renal calculi or focal parenchymal lesions. The kidney measures 9.1 cm in maximum dimension. FREE FLUID: None. US/US abdomen limited IMPRESSION: Fatty infiltration of the liver. No evidence of acute cholecystitis.
[2023-02-06 09:04] VITALS: BP 123/62; PULSE 72; RESP 16; TEMP 36.2; O2SAT 96; BMI 32.8
[2023-02-06 10:12] VITALS: BP 107/63; PULSE 59; RESP 18; TEMP 36.8; O2SAT 98
--- NOTE | 2023-02-06 10:59 | ED.ABDPAIN ---
HPI - Abdominal Pain General Chief Complaint: Abdominal Pain Stated Complaint: R flank pain/Leg pain Time Seen by Provider: 02/06/23 09:09 History of Present Illness HPI narrative: Patient is a 57-year-old female was in the emergency department about a week ago for similar pain. The pain is over the right upper quadrant goes to the right flank area. At the time patient had an elevated lipase. A CT scan suggestive of pancreatitis patient is told follow-up on an outpatient basis. There is no fever no chills. Patient claims the pain comes and goes. No coughing no congestion or upper respiratory symptoms. No diaphoresis. Patient is from home. Related Data Home Medications Medication Instructions Recorded Confirmed duloxetine 60 mg capsule,delayed 60 mg PO DAILY 09/22/20 11/16/22 release lidocaine 4 % topical patch 1 patch topical DAILY PRN Pain, 09/22/20 11/16/22 Mild albuterol sulfate 90 mcg/actuation 2 puff inhalation Q6H PRN dyspnea 01/31/22 11/16/22 aerosol inhaler (ProAir HFA) amlodipine 5 mg tablet 5 mg PO QAM 01/31/22 11/16/22 buspirone 15 mg tablet 15 mg PO TID 01/31/22 11/16/22 docusate sodium 100 mg capsule 100 mg PO BID 01/31/22 11/16/22 mirtazapine 30 mg tablet 30 mg PO BEDTIME insomnia 01/31/22 11/16/22 multivitamin 1 tab PO QAM 01/31/22 11/16/22 nortriptyline 75 mg capsule 75 mg PO TID PRN pain 01/31/22 11/16/22 pantoprazole 40 mg tablet,delayed 40 mg PO 01/31/22 release sertraline 50 mg tablet 50 mg PO QAM depressive disorder 01/31/22 11/16/22 simethicone 180 mg capsule 180 mg PO DAILY PRN gas 01/31/22 11/16/22 tizanidine 4 mg tablet 4 mg PO Q6-8H PRN Muscle Spasm 01/31/22 11/16/22 cyclobenzaprine 10 mg tablet 10 mg PO TID 10/17/22 11/16/22 gabapentin 300 mg capsule 300 mg PO TID 10/17/22 11/16/22 Previous Rx's Medication Instructions Recorded oxybutynin chloride 10 mg 10 mg PO DAILY 90 days #90 tabs 05/26/21 tablet,extended release 24 hr azithromycin 250 mg tablet See Rx Instructions PO .COMPLEX #6 01/30/23 tabs ondansetron 4 mg disintegrating 4 mg PO Q6H PRN nausea and 01/30/23 tablet vomiting #10 tabs prednisone 20 mg tablet 40 mg PO DAILY #10 tabs 01/30/23 pantoprazole 40 mg tablet,delayed 40 mg PO DAILY #14 tabs 02/06/23 release (Protonix) Allergies Allergy/AdvReac Type Severity Reaction Status Date / Time baclofen Allergy Intermediate itchy Verified 01/30/23 15:01 hands/rash ibuprofen [From MOTRIN] Allergy Intermediate HIVES Verified 01/30/23 15:01 Motrin Allergy Unknown unknown Uncoded 12/20/22 09:53 Review of Systems Review of Systems Positive abdominal pain in the epigastric area and right upper quadrant area Yes all other systems are reviewed and are negative PMFSH Past Medical History Attestation statement: The following information was validated with the patient. Medical History Disc degeneration, lumbar retirement (current) use of opiate analgesic Postlaminectomy syndrome Spondylosis of lumbosacral spine with radiculopathy Surgical History History of appendectomy History of hysterectomy Family History Family History Mother Breast cancer Thyroid disease Hypotension Father Asthma Emphysema lung Social History Social History Alcohol intake: never Patient Tobacco Use Status: Current everyday Tobacco user Cigarettes Per Day: 3 Years Smoked: 20 +/- Smoked in Last 30 Days: Yes Use of substances other than those prescribed or required for medical reasons: No Advance Directives: No Advance Directives Information Provided: Yes Physical Exam ED Vital Signs: Vital Signs - 24 hr 02/06/23 09:04 02/06/23 10:12 02/06/23 12:10 Temperature 97.1 F 98.2 F Pulse Rate 72 59 58 Respiratory Rate 16 18 15 Blood Pressure 123/62 107/63 121/71 Pulse Oximetry 96 98 Oxygen Delivery Method Room Air Room Air 02/06/23 12:51 Temperature Pulse Rate 58 Respiratory Rate 19 Blood Pressure 110/45 L Pulse Oximetry 98 Oxygen Delivery Method Room Air BMI result Body Mass Index 32.8 Appearance: Alert. Oriented X3. No acute distress. Eyes: Pupils equal, round and reactive to light. ENT: Pharynx normal. Neck: Normal inspection. Neck supple. No lymph nodes noted. No crepitus CVS: Normal heart rate and rhythm. Pulses normal. Normal S1 and S2 Respiratory: No respiratory distress. Breath sounds normal. No Wheezing. No rales Abdomen: Soft and nontender. No rigidity. No distention. good BS x4 Skin: Skin warm and dry. Normal skin color. Normal skin turgor. Extremities: No lower extremity edema. Neurovascular intact to all extremities. No Lacerations. No Rash Neuro: Oriented X 3. No motor deficit. No sensory deficit. Moving all extermities. No slurred speech Medical Decision Making Medical Decision Making MDM Narrative: Patient is 57 years old was seen in the emergency department on January 30. At that time the lipase was mildly elevated. There was approximately 140 which is about twice normal. There is CT scan of the abdomen showed possible pancreatitis. Some ground-glass appearance in the lower aspect of the lungs. Patient has follow-up appointment. Continued to have abdominal pain. Patient came back to the emergency department for further evaluation. Today patient's white count is normal. LFTs are normal. Lipase is normal. [place] patient does not have pancreatitis at this time. Patient's ultrasound of the right upper quadrant showed no evidence of gallstones. No evidence of dilated bile duct. Patient's previous CT scan showed no evidence of kidney stone. No evidence of obstruction abscess perforation. It showed diverticulosis but no evidence of diverticulitis. Given the pain is same type. Patient recently had a CT scan. [place] patient does not need a 2nd CT scan today. Risk and benefit of the study was discussed with patient. For now will give patient PPI is for possible gastritis. Will have patient closely follow up on an outpatient basis. She is in stable condition. Differential Diagnosis Differential Diagnoses: The differential diagnosis associated with the presentation includes Obstruction, abscess, perforation, diverticulitis, pancreatitis, common duct stone, biliary issues Admission/Observation Consideration of admission/observation: Escalation of care including admission/observation considered Lab Data [facility] Lab Attestation statement: I reviewed the patient's lab results. 02/06/23 11:06 02/06/23 11:06 Labs: Lab Results 02/06/23 02/06/23 02/06/23 Range/Units 11:06 11:06 11:17 WBC 7.7 (4.8-10.8) X10*3/uL RBC 4.19 L (4.20-5.50) X10*6/uL Hgb 11.5 L (12.0-16.0) g/dl Hct 36.9 L (37.0-47.0) % MCV 88.1 (80.0-98.0) fL MCH 27.4 (27.0-33.0) pg MCHC 31.2 (31.0-35.0) g/dl RDW 15.1 (11.0-16.0) % Plt Count 391 (160-400) X10*3/uL MPV 8.7 L (9.4-12.3) fL Immature Gran % (Auto) 0.3 (0.0-0.4) % Neut % (Auto) 61.2 (45-73) % Lymph % (Auto) 27.8 (20-40) % [place] % (Auto) 6.0 (2-11) % Eos % (Auto) 4.3 H (0-4) % Baso % (Auto) 0.4 (0-2) % Lymph # (Auto) 2.2 (1.2-4.9) X10*3/uL [place] # (Auto) 0.5 (0.1-1.2) X10*3/uL Eos # (Auto) 0.3 (0.0-0.4) X10*3/uL Baso # (Auto) 0.0 (0.0-0.2) X10*3/uL Abs Immat Gran (auto) 0.02 (0.00-0.03) X10*3/uL Absolute Neuts (auto) 4.7 (2.0-8.3) x10*3/uL Absolute Nucleated RBC 0.000 (0.0-0.012) X10*3/uL Nucleated RBC % (auto) 0.0 (0.0-0.2) /100WBC Sodium 143 (135-145) mmol/L Potassium 4.8 (3.3-5.1) mmol/L Chloride 103 (96-108) mmol/L Carbon Dioxide 33 H (22-29) mmol/L Anion Gap 12 (12-20) BUN 9 (9-16) mg/dL Creatinine 0.96 (0.5-1.4) mg/dL Estim Creat Clear Calc 67.2 Estimated GFR 59 Random Glucose 96 (60-115) mg/dL Calcium 8.9 (8.4-10.2) mg/dL Total Bilirubin 0.2 (0.0-1.0) mg/dL Direct Bilirubin < 0.2 (0.0-0.5) mg/dL AST 15 (5-31) U/L ALT 15 (0-31) U/L Alkaline Phosphatase 77 (39-117) U/L Total Protein 5.8 L (6.5-8.0) g/dL Albumin 3.6 (3.5-5.0) g/dL Lipase 11 (8-78) U/L Urine Color Yellow Urine Appearance Clear Urine pH 8.5 (5.0-9.0) Ur Specific [place] 1.020 (1.005-1.025) Urine Protein Negative (Neg-Trace) mg/dL Urine Glucose (UA) Negative (Negative) mg/dL Urine Ketones Negative (Negative) mg/dL Urine Blood Negative (Negative) Urine Nitrite Negative (Negative) Ur Leukocyte Esterase Negative (Negative) Urine RBC 0-2 (0-2) /HPF Urine WBC 0-5 (0-5) /HPF Ur Squamous Epith Cells 0-2 (0-2) /HPF Urine Bacteria None Seen (None Seen) Hyaline Casts 0-2 (0-2) /LPF Radiology Impression Discussion of test interpretation with radiology: I have reviewed the radiologist's reading. Radiologist Impression: Fatty liver. No evidence of cholecystitis Medications Administered Discontinued Medications Generic Name Dose Route Start Last Admin Trade Name Freq PRN Reason Stop Dose Admin Hydromorphone HCl 0.5 mg 02/06/23 10:56 02/06/23 11:17 Hydromorphone Hcl 0.5 Mg/0.5 Ml Syringe IVPUSH 02/06/23 10:57 0.5 mg ONCE ONE Administration Protocol Hydromorphone HCl 0.5 mg 02/06/23 12:42 02/06/23 12:50 Hydromorphone Hcl 0.5 Mg/0.5 Ml Syringe IVPUSH 02/06/23 12:43 0.5 mg ONCE ONE Administration Protocol Sodium Chloride 500 mls @ 999 mls/hr 02/06/23 11:00 02/06/23 11:18 Ns IV 02/06/23 11:30 999 mls/hr .Q31M HANG Administration Ondansetron HCl 4 mg 02/06/23 10:57 02/06/23 11:16 Ondansetron Hcl 4 Mg/2 Ml Vial IVPUSH 02/06/23 10:58 4 mg ONCE ONE Administration Discharge Plan Discharge Clinical Impression: Abdominal pain Patient Disposition: Home, Self-Care Instructions: Abdominal Pain (ED) Prescriptions: New pantoprazole [Protonix] 40 mg tablet,delayed release (DR/EC) 40 mg PO DAILY Qty: 14 0RF No Action oxybutynin chloride 10 mg tablet extended release 24hr 10 mg PO DAILY 90 Days Qty: 90 1RF azithromycin 250 mg tablet See Rx Instructions .ROUTE .COMPLEX Qty: 6 0RF Rx Instructions: For 250 mg dose pack: take 500 mg today (day 1), then 250 mg for 4 days (days 2-5) prednisone 20 mg tablet 40 mg PO DAILY Qty: 10 0RF ondansetron 4 mg tablet,disintegrating 4 mg PO Q6H PRN (Reason: nausea and vomiting) Qty: 10 0RF duloxetine 60 mg capsule,delayed release(DR/EC) 60 mg PO DAILY lidocaine 4 % adhesive patch,medicated 1 patch topical DAILY PRN (Reason: Pain, Mild) Rx Instructions: may leave on for up to 12 hrs cyclobenzaprine 10 mg tablet 10 mg PO TID gabapentin 300 mg capsule 300 mg PO TID amlodipine 5 mg tablet 5 mg PO QAM nortriptyline 75 mg capsule 75 mg PO TID PRN (Reason: pain) pantoprazole 40 mg tablet,delayed release (DR/EC) 40 mg PO mirtazapine 30 mg tablet 30 mg PO BEDTIME sertraline 50 mg tablet 50 mg PO QAM buspirone 15 mg tablet 15 mg PO TID multivitamin Tablet 1 tab PO QAM simethicone 180 mg capsule 180 mg PO DAILY PRN (Reason: gas) tizanidine 4 mg tablet 4 mg PO Q6-8H PRN (Reason: Muscle Spasm) docusate sodium 100 mg capsule 100 mg PO BID albuterol sulfate [ProAir HFA] 90 mcg/actuation HFA aerosol inhaler 2 puff inhalation Q6H PRN (Reason: dyspnea)
[2023-02-06 11:12] LABS: MANUAL DIFF FLAG NO
[2023-02-06] MEDS: ondansetron HCL 4 MG/2 ML VIAL IVPUSH (11:16)
[2023-02-06] MEDS: HYDROmorphone HCl 0.5 MG/0.5 ML SYRINGE IVPUSH ×2 (11:17→12:50)
[2023-02-06 11:18] LABS: Basophils Percent Auto 0.4 % (0-2); Eosinophils Absolute Auto 0.3 X10*3/uL (0.0-0.4); Eosinophils Percent Auto 4.3 % (0-4); Hematocrit 36.9 % (37.0-47.0); Hemoglobin 11.5 g/dl (12.0-16.0); Imm Gran Abs Auto 0.02 X10*3/uL (0.00-0.03); Imm Gran Pct Auto 0.3 % (0.0-0.4); Lymphocytes Absolute Auto 2.2 X10*3/uL (1.2-4.9); Lymphocytes Percent Auto 27.8 % (20-40); Mean Corpuscular HGB Conc 31.2 g/dl (31.0-35.0); Mean Corpuscular Hemoglobin 27.4 pg (27.0-33.0); Mean Corpuscular Volume 88.1 fL (80.0-98.0); Mean Platelet Volume 8.7 fL (9.4-12.3); Monocytes Absolute Auto 0.5 X10*3/uL (0.1-1.2); Neutrophils Absolute Auto 4.7 x10*3/uL (2.0-8.3); Neutrophils Percent Auto 61.2 % (45-73); Platelet Count 391 X10*3/uL (160-400); Red Blood Count 4.19 X10*6/uL (4.20-5.50); Red Cell Distribution Width 15.1 % (11.0-16.0); White Blood Count 7.7 X10*3/uL (4.8-10.8)
[2023-02-06] MEDS: 0.9 % Sodium Chloride 500 ML 999 ML IV (11:18)
[2023-02-06 11:30] LABS: Alanine Aminotransferase 15 U/L (0-31); Albumin Level 3.6 g/dL (3.5-5.0); Alkaline Phosphatase 77 U/L (39-117); Anion Gap 12 (12-20); Aspartate Amino Transferase 15 U/L (5-31); Bilirubin Direct < 0.2 mg/dL (0.0-0.5); Bilirubin Total 0.2 mg/dL (0.0-1.0); Blood Urea Nitrogen 9 mg/dL (9-16); Calcium 8.9 mg/dL (8.4-10.2); Carbon Dioxide 33 mmol/L (22-29); Chloride 103 mmol/L (96-108); Creatinine Clr Calc Pharmacy 67.2; Estimated Glomerular Filt Rate 59; Glucose Random 96 mg/dL (60-115); Lipase 11 U/L (8-78); Potassium 4.8 mmol/L (3.3-5.1); Sodium 143 mmol/L (135-145); Total Protein 5.8 g/dL (6.5-8.0)
[2023-02-06 11:42] LABS: Appearance Urine Clear; Color Urine Yellow; Glucose Urine UA Negative (Negative); Leukocyte Esterase Urine Negative (Negative); Nitrite Urine Negative (Negative); PH 8.5 (5.0-9.0); Urine Blood Negative (Negative); Urine Ketones Negative (Negative); Urine Protein Negative (Neg-Trace)
[2023-02-06 11:49] LABS: Bacteria Urine None Seen (None Seen); Hyaline Casts Urine 0-2 /LPF (0-2); RBC Urine 0-2 /HPF (0-2); Squamous Epithelial Cell Urine 0-2 /HPF (0-2); WBC Urine 0-5 /HPF (0-5)
[2023-02-06 12:10] VITALS: BP 121/71; PULSE 58; RESP 15
[2023-02-06 12:51] VITALS: BP 110/45; PULSE 58; RESP 19; O2SAT 98
[2023-02-06 14:29] VITALS: BP 124/68; PULSE 88; RESP 19; O2SAT 97
== END 2023-02-06 14:30 | disposition home or self-care (01) ==
PROVIDERS: Emergency Provider Emergency Medicine Emergency Medical Services; PCP Family Medicine
DX: R10.11 Right upper quadrant pain (principal)
CPT/HCPCS: 36415; 76705; 80048; 80076; 81001; 83690; 85025; 96374; 96375; 96376; 99284; J1170; J2405

== ENCOUNTER → 2023-02-07 13:29 | Outpatient (BNVA) | payer MEDICAID, SELFPAY | PROVIDERS: PCP Family Medicine; Visit Provider Surgery Vascular Surgery | DX: I83.11 Varicose veins of right lower extremity with inflammation (principal); I83.12 Varicose veins of left lower extremity with inflammation | CPT/HCPCS: 99212 ==

== ENCOUNTER 2023-02-28 10:06 | Outpatient (REF) | payer MEDICAID, SELFPAY ==
--- NOTE | ~2023-02-28 | CT_ITS ---
EXAMINATION: CT CHEST WITH CONTRAST CLINICAL INFORMATION: Lung abnormality COMPARISON: Previous chest x-ray January 2023 TECHNIQUE: Multidetector volumetric CT imaging of the chest was obtained after the administration of 65 mL of Omnipaque 350 intravenous contrast without immediate adverse reactions. Axial MIP volume rendering provided. Sagittal and coronal reformatted images were obtained. This CT examination was performed using dose optimization techniques as appropriate, variously including the following: *Automated exposure control *Adjustment of mA and/or kV according to patient size (this includes techniques or standardized protocols for targeted exams where dose is matched to indication/reason for exam; i.e. extremities or head) *Use of iterative reconstruction technique DLP: 188 mGy-cm FINDINGS: LUNGS: Mild paraseptal emphysema. 4 mm calcified right upper lobe nodule axial image 89 series 7. 6 mm noncalcified left lower lobe nodule axial image 157. Bronchial wall thickening and probable mucous plugging in the right lower lobe. MEDIASTINUM: The mediastinum is normal. PLEURA: There is no pleural effusion. No pleural mass or thickening. AXILLA: No lymphadenopathy. UPPER ABDOMEN: Small splenic calcification. OSSEOUS STRUCTURES: Unremarkable. CT/CT chest w IV con IMPRESSION: Calcified and noncalcified pulmonary nodules. Largest nodule is a 6 mm noncalcified left lower lobe nodule. According to the UPDATED 2017 Fleischner Society recommendations, the advised follow-up imaging for 68 mm solid nodule: 6-12 and 8 18-[address] follow-up for low and high risk patients recommended. Mild paraseptal emphysema. Probable airways disease in the right lower lobe. Fleischner guidelines were followed.
[2023-02-28] MEDS: iohexoL 350 MG/ML 100 ML INFUS..BTL IV (10:48)
== END 2023-02-28 10:07 | disposition home or self-care (01) ==
LOC: HO.CT 10:06
PROVIDERS: PCP Family Medicine; Visit Provider Family Medicine
DX: J98.4 Other disorders of lung (principal)
CPT/HCPCS: 71260; Q9967

== ENCOUNTER 2023-03-05 11:27 | Outpatient (REF) | payer MEDICAID, SELFPAY ==
--- NOTE | ~2023-03-05 | MR_ITS ---
EXAMINATION: MR ABDOMEN WITHOUT AND WITH CONTRAST CLINICAL INFORMATION: Heterogeneous pancreas COMPARISON: Abdominal ultrasound 02/06/2023, CT abdomen pelvis 01/30/2023 TECHNIQUE: MR abdomen was performed without and with use of 9 mL intravenous Gadavist gadolinium contrast. Postcontrast images are performed in multiphase dynamic sequences. Imaging was performed in 3 planes. MRCP sequences were obtained. FINDINGS: LUNG BASES: Unremarkable. ABDOMINAL WALL: Unremarkable. LIVER AND BILIARY TREE: Mild loss of signal on opposed phase imaging suggesting hepatic steatosis. No intra or extrahepatic biliary duct dilatation or intraluminal filling defect to suggest choledocholithiasis. GALLBLADDER: Unremarkable. PANCREAS: No pancreatic duct dilatation. No pancreatic mass. No peripancreatic inflammatory changes. SPLEEN: Unremarkable. ADRENAL GLANDS: Unremarkable. KIDNEYS AND URETERS: A wedge-shaped region of hypoenhancement involving the right upper pole with some central T2 hypointense signal and peripheral T2 hyperintense signal. GASTROINTESTINAL TRACT: Colonic diverticulosis without evidence of diverticulitis. VASCULAR: Unremarkable. LYMPH NODES/PERITONEUM: No lymphadenopathy. FREE FLUID: None. OSSEOUS STRUCTURES: Unremarkable. MR/MR abdomen wo/w con IMPRESSION: No suspicious pancreatic mass or pancreatic duct dilatation. A wedge-shaped region of hypoenhancement involving the right upper pole with some central T2 hypointense signal and peripheral T2 hyperintense signal raising the possibility of a renal infarct or possibly focal pyelonephritis. Recommend correlation with urinalysis and short interval follow-up imaging with contrast-enhanced CT abdomen. Mild hepatic steatosis.
== END 2023-03-05 11:28 | disposition home or self-care (01) ==
LOC: HO.MRI 11:27
PROVIDERS: PCP Family Medicine; Visit Provider Family Medicine
DX: S36.200A Unspecified injury of head of pancreas, initial encounter (principal)
CPT/HCPCS: 74183; A9585

== ENCOUNTER 2023-03-25 12:05 | Emergency (ER) | payer MEDICAID, SELFPAY ==
--- NOTE | ~2023-03-25 | US_ITS ---
EXAMINATION: US ABDOMEN LIMITED CLINICAL INFORMATION: Right upper quadrant pain. COMPARISON: Previous CT of the abdomen and pelvis and abdominal ultrasound January 2023 and MRI of the abdomen March 2023 TECHNIQUE: Real-time imaging of the right upper quadrant abdominal viscera. FINDINGS: PANCREAS: The head and body of the pancreas are normal. The tail is not well visualized due to bowel gas LIVER: The liver is normal in size. The liver contour is normal. Liver echotexture is slightly increased. No focal hepatic lesion. There is no intrahepatic biliary duct dilatation seen. GALLBLADDER: Normal. The gallbladder is physiologically distended without evidence of stones, sludge, polyps, wall thickening or pericholecystic fluid. COMMON BILE DUCT: Normal in caliber measuring 0.6 cm in diameter. RIGHT KIDNEY: Normal. No hydronephrosis. No renal calculi or focal parenchymal lesions. The kidney measures 9.6 cm in maximum dimension. FREE FLUID: None. US/US abdomen limited IMPRESSION: Slightly echogenic liver probably representing fatty infiltration. Limited visualization of the tail of the pancreas. Otherwise unremarkable exam.
[2023-03-25 13:12] VITALS: BP 156/72; PULSE 125; RESP 18; TEMP 36.6; BMI 29.9
--- NOTE | 2023-03-25 13:12 | ECG_ITS ---
Test Reason : diff breathing Blood Pressure : / mmHG Vent. Rate : 115 BPM Atrial Rate : 115 BPM P-R Int : 128 ms QRS Dur : 070 ms QT Int : 318 ms P-R-T Axes : -10 042 041 degrees QTc Int : 439 ms Sinus tachycardia Otherwise normal ECG When compared with ECG of 30-JAN-2023 16:13, Vent. rate has increased BY 41 BPM Referred By: Angelita Muñiz Electronically Signed By:Luciano Leone
--- NOTE | 2023-03-25 13:12 | ED.GENADULT ---
HPI - General Adult General Chief complaint: Abdominal Pain <KORTNEY Porter - Last Filed: 03/25/23 13:20> Stated complaint: upper abd pain vomiting fever diff breathing <KORTNEY Porter - Last Filed: 03/25/23 13:20> Time Seen by Provider: 03/25/23 20:20 <KORTNEY Porter - Last Filed: 03/25/23 13:20> Source: patient <Ashley Wallace MD - Last Filed: 03/25/23 22:12> Mode of arrival: ambulatory <Ashley Wallace MD - Last Filed: 03/25/23 22:12> History of Present Illness HPI narrative: 57-year-old female who was seen at [facility] week and a half ago for pyelonephritis and bacteremia states that she began having right upper quadrant pain while she was at [facility] but they discharged her last Saturday regardless of this. She states that she has completed her oral course of antibiotics this past Saturday and then last night began developing nausea and a few episodes of vomiting with T-max of 102 degrees. Patient states that she has continued to be nauseous and vomiting today but denies any diarrhea and has continued to pass flatus. She denies any dysuria. <Ashley Wallace MD - Last Filed: 03/25/23 22:12> Related Data Home medications: Home Medications Medication Instructions Recorded Confirmed duloxetine 60 mg capsule,delayed 60 mg PO DAILY 09/22/20 11/16/22 release lidocaine 4 % topical patch 1 patch topical DAILY PRN Pain, 09/22/20 11/16/22 Mild albuterol sulfate 90 mcg/actuation 2 puff inhalation Q6H PRN dyspnea 01/31/22 11/16/22 aerosol inhaler (ProAir HFA) amlodipine 5 mg tablet 5 mg PO QAM 01/31/22 11/16/22 buspirone 15 mg tablet 15 mg PO TID 01/31/22 11/16/22 docusate sodium 100 mg capsule 100 mg PO BID 01/31/22 11/16/22 mirtazapine 30 mg tablet 30 mg PO BEDTIME insomnia 01/31/22 11/16/22 multivitamin 1 tab PO QAM 01/31/22 11/16/22 nortriptyline 75 mg capsule 75 mg PO TID PRN pain 01/31/22 11/16/22 pantoprazole 40 mg tablet,delayed 40 mg PO 01/31/22 release sertraline 50 mg tablet 50 mg PO QAM depressive disorder 01/31/22 11/16/22 simethicone 180 mg capsule 180 mg PO DAILY PRN gas 01/31/22 11/16/22 tizanidine 4 mg tablet 4 mg PO Q6-8H PRN Muscle Spasm 01/31/22 11/16/22 cyclobenzaprine 10 mg tablet 10 mg PO TID 10/17/22 11/16/22 gabapentin 300 mg capsule 300 mg PO TID 10/17/22 11/16/22 Previous Rx's Medication Instructions Recorded oxybutynin chloride 10 mg 10 mg PO DAILY 90 days #90 tabs 05/26/21 tablet,extended release 24 hr azithromycin 250 mg tablet See Rx Instructions PO .COMPLEX #6 01/30/23 tabs ondansetron 4 mg disintegrating 4 mg PO Q6H PRN nausea and 01/30/23 tablet vomiting #10 tabs prednisone 20 mg tablet 40 mg PO DAILY #10 tabs 01/30/23 pantoprazole 40 mg tablet,delayed 40 mg PO DAILY #14 tabs 02/06/23 release (Protonix) <KORTNEY Porter - Last Filed: 03/25/23 13:20> Allergies/adverse reactions: Allergies Allergy/AdvReac Type Severity Reaction Status Date / Time baclofen Allergy Intermediate itchy Verified 03/25/23 13:17 hands/rash ibuprofen [From MOTRIN] Allergy Intermediate HIVES Verified 03/25/23 13:17 Motrin Allergy Unknown unknown Uncoded 12/20/22 09:53 <KORTNEY Porter - Last Filed: 03/25/23 13:20> Review of Systems Review of Systems: Pertinent positives and negatives as stated in HPI <Ashley Wallace MD - Last Filed: 03/25/23 22:12> PMFSH Past Medical History Source: nursing notes reviewed <Ashley Wallace MD - Last Filed: 03/25/23 22:12> Medical History: Medical History Disc degeneration, lumbar FPC (current) use of opiate analgesic Postlaminectomy syndrome Spondylosis of lumbosacral spine with radiculopathy <KORTNEY Porter - Last Filed: 03/25/23 13:20> Surgical History: Surgical History History of appendectomy History of hysterectomy <KORTNEY Porter - Last Filed: 03/25/23 13:20> Family History Family History: Family History Mother Breast cancer Thyroid disease Hypotension Father Asthma Emphysema lung <KORTNEY Porter - Last Filed: 03/25/23 13:20> Social History Social History: Social History Alcohol intake: never Patient Tobacco Use Status: Current everyday Tobacco user Cigarettes Per Day: 3 Years Smoked: 20 +/- Smoked in Last 30 Days: Yes Use of substances other than those prescribed or required for medical reasons: No Advance Directives: No Advance Directives Information Provided: No Patient : No <KORTNEY Porter - Last Filed: 03/25/23 13:20> Physical Exam ED Vital Signs: Vital Signs - 24 hr 03/25/23 13:12 03/25/23 20:06 Temperature 97.8 F 98.8 F Pulse Rate 125 H 125 H Respiratory Rate 18 16 Blood Pressure 156/72 H 154/65 H Pulse Oximetry 98 Oxygen Delivery Method Room Air BMI result Body Mass Index 29.9 <KORTNEY Porter - Last Filed: 03/25/23 13:20> Vital Signs - 24 hr 03/25/23 13:12 03/25/23 20:06 Temperature 97.8 F 98.8 F Pulse Rate 125 H 125 H Respiratory Rate 18 16 Blood Pressure 156/72 H 154/65 H Pulse Oximetry 98 Oxygen Delivery Method Room Air BMI result Body Mass Index 29.9 VITAL SIGNS: Reviewed. GENERAL: Well developed, well nourished, in no acute distress. HEAD: Normocephalic/atraumatic EYES: PERRLA, EOMI EARS: Ext canals without abnormality NOSE: Nares patent bilateral OROPHARYNX: no oral lesions noted, posterior pharynx clear NECK: Supple, no adenopathy LUNGS: Normal breath sounds. No adventitious sounds or accessory muscle use. SpO2<98> CARDIOVASCULAR: Regular rate and rhythm without noted murmurs ABDOMEN: Soft, right upper quadrant pain/Serna's positive, non-distended with bowel sounds. MUSCULOSKELETAL: No tenderness, deformities, or effusions noted on gross inspection. EXTREMITIES: No cyanosis, clubbing or edema. SKIN: Inspection of the skin reveals no rashes NEUROLOGIC: Alert and oriented x 4. Strength and sensation to light touch were grossly intact x 4. <Ashley Wallace MD - Last Filed: 03/25/23 22:12> Vital Signs - 24 hr 03/25/23 13:12 03/25/23 20:06 Temperature 97.8 F 98.8 F Pulse Rate 125 H 125 H Respiratory Rate 18 16 Blood Pressure 156/72 H 154/65 H Pulse Oximetry 98 Oxygen Delivery Method Room Air BMI result Body Mass Index 29.9 <Gustavo Romero MD - Last Filed: 03/25/23 22:51> Course Course Course Narrative: RME: 57-year-old female with a past medical history degenerative disc disease, sacroiliitis, complaining of epigastric/upper abdominal pain radiating to back with associated nausea and vomiting x 1 week. Also reports SOB and chest discomfort. Abdomen soft with epigastric/RUQ tenderness, + guarding. Blood pressure's equal in bilateral upper extremities EKG, labs, UA, CT AP ordered Full HPI, ROS and PE to be performed by primary ED provider. <KORTNEY Porter - Last Filed: 03/25/23 13:20> Reevaluation(s) Reevaluation #1: Ultrasound negative for stones or cholecystitis, no WBC, no liver enzyme elevation. no evidence of cholecystitis will dc home <Gustavo Romero MD - Last Filed: 03/25/23 22:51> Time: 22:47 <Gustavo Romero MD - Last Filed: 03/25/23 22:51> Medications Administered Discontinued Medications Generic Name Dose Route Start Last Admin Trade Name Freq PRN Reason Stop Dose Admin Fentanyl 25 mcg 03/25/23 20:55 03/25/23 21:10 Fentanyl Citrate/Pf 100 Mcg/2 Ml Vial IVPUSH 03/25/23 20:56 25 mcg ONCE ONE Administration Protocol Hydromorphone HCl 0.25 mg 03/25/23 22:11 03/25/23 22:23 Hydromorphone Hcl 0.5 Mg/0.5 Ml Syringe IVPUSH 03/25/23 22:12 0.25 mg ONCE ONE Administration Protocol Sodium Chloride 1,000 mls @ 999 mls/hr 03/25/23 21:00 03/25/23 22:19 Ns IV 03/25/23 22:00 Infused .Q1H1M HANG Infusion <KORTNEY Porter - Last Filed: 03/25/23 13:20> Medications Administered Discontinued Medications Generic Name Dose Route Start Last Admin Trade Name Freq PRN Reason Stop Dose Admin Fentanyl 25 mcg 03/25/23 20:55 03/25/23 21:10 Fentanyl Citrate/Pf 100 Mcg/2 Ml Vial IVPUSH 03/25/23 20:56 25 mcg ONCE ONE Administration Protocol Hydromorphone HCl 0.25 mg 03/25/23 22:11 03/25/23 22:23 Hydromorphone Hcl 0.5 Mg/0.5 Ml Syringe IVPUSH 03/25/23 22:12 0.25 mg ONCE ONE Administration Protocol Sodium Chloride 1,000 mls @ 999 mls/hr 03/25/23 21:00 03/25/23 22:19 Ns IV 03/25/23 22:00 Infused .Q1H1M HANG Infusion <Ashley Wallace MD - Last Filed: 03/25/23 22:12> Medications Administered Discontinued Medications Generic Name Dose Route Start Last Admin Trade Name Freq PRN Reason Stop Dose Admin Fentanyl 25 mcg 03/25/23 20:55 03/25/23 21:10 Fentanyl Citrate/Pf 100 Mcg/2 Ml Vial IVPUSH 03/25/23 20:56 25 mcg ONCE ONE Administration Protocol Hydromorphone HCl 0.25 mg 03/25/23 22:11 03/25/23 22:23 Hydromorphone Hcl 0.5 Mg/0.5 Ml Syringe IVPUSH 03/25/23 22:12 0.25 mg ONCE ONE Administration Protocol Sodium Chloride 1,000 mls @ 999 mls/hr 03/25/23 21:00 03/25/23 22:19 Ns IV 03/25/23 22:00 Infused .Q1H1M HANG Infusion <Gustavo Romero MD - Last Filed: 03/25/23 22:51> Medical Decision Making Medical Decision Making [facility] Narrative: 2054: 57-year-old female with history and clinical presentation concerning for possible cholecystitis, possible pancreatitis. Signed out to Dr Romero to follow up Ultrasound findings and procedd with CT scan as indicated if US is negative. <Ashley Wallace MD - Last Filed: 03/25/23 22:12> Differential Diagnosis Please see the discussion above <Ashley Wallace MD - Last Filed: 03/25/23 22:12> Admission/Observation Consideration of admission/observation: Escalation of care including admission/observation considered (patient with recent admission for pyelonephritis who presents with tachycardia admission was considered) <Gustavo Romero MD - Last Filed: 03/25/23 22:51> Lab Data [facility] Lab Attestation statement: I reviewed the patient's lab results. <Gustavo Romero MD - Last Filed: 03/25/23 22:51> Result Diagrams: 03/25/23 15:59 03/25/23 15:59 <KORTNEY Porter - Last Filed: 03/25/23 13:20> Labs: Lab Results 03/25/23 03/25/23 03/25/23 Range/Units 15:59 15:59 15:59 WBC 10.8 (4.8-10.8) X10*3/uL RBC 4.88 (4.20-5.50) X10*6/uL Hgb 13.7 (12.0-16.0) g/dl Hct 42.9 (37.0-47.0) % MCV 87.9 (80.0-98.0) fL MCH 28.1 (27.0-33.0) pg MCHC 31.9 (31.0-35.0) g/dl RDW 13.6 (11.0-16.0) % Plt Count 528 H D (160-400) X10*3/uL MPV 9.2 L (9.4-12.3) fL Immature Gran % (Auto) 0.2 (0.0-0.4) % Neut % (Auto) 70.4 (45-73) % Lymph % (Auto) 20.3 (20-40) % Traverse % (Auto) 6.2 (2-11) % Eos % (Auto) 2.5 (0-4) % Baso % (Auto) 0.4 (0-2) % Lymph # (Auto) 2.2 (1.2-4.9) X10*3/uL Traverse # (Auto) 0.7 (0.1-1.2) X10*3/uL Eos # (Auto) 0.3 (0.0-0.4) X10*3/uL Baso # (Auto) 0.0 (0.0-0.2) X10*3/uL Abs Immat Gran (auto) 0.02 (0.00-0.03) X10*3/uL Absolute Neuts (auto) 7.6 (2.0-8.3) x10*3/uL Absolute Nucleated RBC 0.000 (0.0-0.012) X10*3/uL Nucleated RBC % (auto) 0.0 (0.0-0.2) /100WBC PT 10.7 (10.0-13.1) SEC INR 0.9 (0.9-1.1) Sodium 145 (135-145) mmol/L Potassium 4.5 (3.3-5.1) mmol/L Chloride 104 (96-108) mmol/L Carbon Dioxide 31 H (22-29) mmol/L Anion Gap 15 (12-20) BUN 9 (9-16) mg/dL Creatinine 0.84 (0.5-1.4) mg/dL Estim Creat Clear Calc 76.1 Estimated GFR > 60 Random Glucose 92 (60-115) mg/dL Lactic Acid (0.5-2.0) mmol/L Calcium 9.8 D (8.4-10.2) mg/dL Magnesium 2.2 (1.6-2.6) mg/dL Total Bilirubin 0.3 (0.0-1.0) mg/dL Direct Bilirubin 0.1 (0.0-0.5) mg/dL AST 18 (5-31) U/L ALT 20 (0-31) U/L Alkaline Phosphatase 99 (39-117) U/L Troponin I High Sens (<3.5-17.0) ng/L Total Protein 7.5 (6.5-8.0) g/dL Albumin 4.5 (3.5-5.0) g/dL Lipase 14 (8-78) U/L 03/25/23 03/25/23 Range/Units 15:59 21:07 WBC (4.8-10.8) X10*3/uL RBC (4.20-5.50) X10*6/uL Hgb (12.0-16.0) g/dl Hct (37.0-47.0) % MCV (80.0-98.0) fL MCH (27.0-33.0) pg MCHC (31.0-35.0) g/dl RDW (11.0-16.0) % Plt Count (160-400) X10*3/uL MPV (9.4-12.3) fL Immature Gran % (Auto) (0.0-0.4) % Neut % (Auto) (45-73) % Lymph % (Auto) (20-40) % Traverse % (Auto) (2-11) % Eos % (Auto) (0-4) % Baso % (Auto) (0-2) % Lymph # (Auto) (1.2-4.9) X10*3/uL Traverse # (Auto) (0.1-1.2) X10*3/uL Eos # (Auto) (0.0-0.4) X10*3/uL Baso # (Auto) (0.0-0.2) X10*3/uL Abs Immat Gran (auto) (0.00-0.03) X10*3/uL Absolute Neuts (auto) (2.0-8.3) x10*3/uL Absolute Nucleated RBC (0.0-0.012) X10*3/uL Nucleated RBC % (auto) (0.0-0.2) /100WBC PT (10.0-13.1) SEC INR (0.9-1.1) Sodium (135-145) mmol/L Potassium (3.3-5.1) mmol/L Chloride (96-108) mmol/L Carbon Dioxide (22-29) mmol/L Anion Gap (12-20) BUN (9-16) mg/dL Creatinine (0.5-1.4) mg/dL Estim Creat Clear Calc Estimated GFR Random Glucose (60-115) mg/dL Lactic Acid 1.0 (0.5-2.0) mmol/L Calcium (8.4-10.2) mg/dL Magnesium (1.6-2.6) mg/dL Total Bilirubin (0.0-1.0) mg/dL Direct Bilirubin (0.0-0.5) mg/dL AST (5-31) U/L ALT (0-31) U/L Alkaline Phosphatase (39-117) U/L Troponin I High Sens < 2.7 (<3.5-17.0) ng/L Total Protein (6.5-8.0) g/dL Albumin (3.5-5.0) g/dL Lipase (8-78) U/L <KORTNEY Porter - Last Filed: 03/25/23 13:20> Lab Results 03/25/23 03/25/23 03/25/23 Range/Units 15:59 15:59 15:59 WBC 10.8 (4.8-10.8) X10*3/uL RBC 4.88 (4.20-5.50) X10*6/uL Hgb 13.7 (12.0-16.0) g/dl Hct 42.9 (37.0-47.0) % MCV 87.9 (80.0-98.0) fL MCH 28.1 (27.0-33.0) pg MCHC 31.9 (31.0-35.0) g/dl RDW 13.6 (11.0-16.0) % Plt Count 528 H D (160-400) X10*3/uL MPV 9.2 L (9.4-12.3) fL Immature Gran % (Auto) 0.2 (0.0-0.4) % Neut % (Auto) 70.4 (45-73) % Lymph % (Auto) 20.3 (20-40) % Traverse % (Auto) 6.2 (2-11) % Eos % (Auto) 2.5 (0-4) % Baso % (Auto) 0.4 (0-2) % Lymph # (Auto) 2.2 (1.2-4.9) X10*3/uL Traverse # (Auto) 0.7 (0.1-1.2) X10*3/uL Eos # (Auto) 0.3 (0.0-0.4) X10*3/uL Baso # (Auto) 0.0 (0.0-0.2) X10*3/uL Abs Immat Gran (auto) 0.02 (0.00-0.03) X10*3/uL Absolute Neuts (auto) 7.6 (2.0-8.3) x10*3/uL Absolute Nucleated RBC 0.000 (0.0-0.012) X10*3/uL Nucleated RBC % (auto) 0.0 (0.0-0.2) /100WBC PT 10.7 (10.0-13.1) SEC INR 0.9 (0.9-1.1) Sodium 145 (135-145) mmol/L Potassium 4.5 (3.3-5.1) mmol/L Chloride 104 (96-108) mmol/L Carbon Dioxide 31 H (22-29) mmol/L Anion Gap 15 (12-20) BUN 9 (9-16) mg/dL Creatinine 0.84 (0.5-1.4) mg/dL Estim Creat Clear Calc 76.1 Estimated GFR > 60 Random Glucose 92 (60-115) mg/dL Lactic Acid (0.5-2.0) mmol/L Calcium 9.8 D (8.4-10.2) mg/dL Magnesium 2.2 (1.6-2.6) mg/dL Total Bilirubin 0.3 (0.0-1.0) mg/dL Direct Bilirubin 0.1 (0.0-0.5) mg/dL AST 18 (5-31) U/L ALT 20 (0-31) U/L Alkaline Phosphatase 99 (39-117) U/L Troponin I High Sens (<3.5-17.0) ng/L Total Protein 7.5 (6.5-8.0) g/dL Albumin 4.5 (3.5-5.0) g/dL Lipase 14 (8-78) U/L 03/25/23 03/25/23 Range/Units 15:59 21:07 WBC (4.8-10.8) X10*3/uL RBC (4.20-5.50) X10*6/uL Hgb (12.0-16.0) g/dl Hct (37.0-47.0) % MCV (80.0-98.0) fL MCH (27.0-33.0) pg MCHC (31.0-35.0) g/dl RDW (11.0-16.0) % Plt Count (160-400) X10*3/uL MPV (9.4-12.3) fL Immature Gran % (Auto) (0.0-0.4) % Neut % (Auto) (45-73) % Lymph % (Auto) (20-40) % Traverse % (Auto) (2-11) % Eos % (Auto) (0-4) % Baso % (Auto) (0-2) % Lymph # (Auto) (1.2-4.9) X10*3/uL Traverse # (Auto) (0.1-1.2) X10*3/uL Eos # (Auto) (0.0-0.4) X10*3/uL Baso # (Auto) (0.0-0.2) X10*3/uL Abs Immat Gran (auto) (0.00-0.03) X10*3/uL Absolute Neuts (auto) (2.0-8.3) x10*3/uL Absolute Nucleated RBC (0.0-0.012) X10*3/uL Nucleated RBC % (auto) (0.0-0.2) /100WBC PT (10.0-13.1) SEC INR (0.9-1.1) Sodium (135-145) mmol/L Potassium (3.3-5.1) mmol/L Chloride (96-108) mmol/L Carbon Dioxide (22-29) mmol/L Anion Gap (12-20) BUN (9-16) mg/dL Creatinine (0.5-1.4) mg/dL Estim Creat Clear Calc Estimated GFR Random Glucose (60-115) mg/dL Lactic Acid 1.0 (0.5-2.0) mmol/L Calcium (8.4-10.2) mg/dL Magnesium (1.6-2.6) mg/dL Total Bilirubin (0.0-1.0) mg/dL Direct Bilirubin (0.0-0.5) mg/dL AST (5-31) U/L ALT (0-31) U/L Alkaline Phosphatase (39-117) U/L Troponin I High Sens < 2.7 (<3.5-17.0) ng/L Total Protein (6.5-8.0) g/dL Albumin (3.5-5.0) g/dL Lipase (8-78) U/L <Ashley Wallace MD - Last Filed: 03/25/23 22:12> Lab Results 03/25/23 03/25/23 03/25/23 Range/Units 15:59 15:59 15:59 WBC 10.8 (4.8-10.8) X10*3/uL RBC 4.88 (4.20-5.50) X10*6/uL Hgb 13.7 (12.0-16.0) g/dl Hct 42.9 (37.0-47.0) % MCV 87.9 (80.0-98.0) fL MCH 28.1 (27.0-33.0) pg MCHC 31.9 (31.0-35.0) g/dl RDW 13.6 (11.0-16.0) % Plt Count 528 H D (160-400) X10*3/uL MPV 9.2 L (9.4-12.3) fL Immature Gran % (Auto) 0.2 (0.0-0.4) % Neut % (Auto) 70.4 (45-73) % Lymph % (Auto) 20.3 (20-40) % Traverse % (Auto) 6.2 (2-11) % Eos % (Auto) 2.5 (0-4) % Baso % (Auto) 0.4 (0-2) % Lymph # (Auto) 2.2 (1.2-4.9) X10*3/uL Traverse # (Auto) 0.7 (0.1-1.2) X10*3/uL Eos # (Auto) 0.3 (0.0-0.4) X10*3/uL Baso # (Auto) 0.0 (0.0-0.2) X10*3/uL Abs Immat Gran (auto) 0.02 (0.00-0.03) X10*3/uL Absolute Neuts (auto) 7.6 (2.0-8.3) x10*3/uL Absolute Nucleated RBC 0.000 (0.0-0.012) X10*3/uL Nucleated RBC % (auto) 0.0 (0.0-0.2) /100WBC PT 10.7 (10.0-13.1) SEC INR 0.9 (0.9-1.1) Sodium 145 (135-145) mmol/L Potassium 4.5 (3.3-5.1) mmol/L Chloride 104 (96-108) mmol/L Carbon Dioxide 31 H (22-29) mmol/L Anion Gap 15 (12-20) BUN 9 (9-16) mg/dL Creatinine 0.84 (0.5-1.4) mg/dL Estim Creat Clear Calc 76.1 Estimated GFR > 60 Random Glucose 92 (60-115) mg/dL Lactic Acid (0.5-2.0) mmol/L Calcium 9.8 D (8.4-10.2) mg/dL Magnesium 2.2 (1.6-2.6) mg/dL Total Bilirubin 0.3 (0.0-1.0) mg/dL Direct Bilirubin 0.1 (0.0-0.5) mg/dL AST 18 (5-31) U/L ALT 20 (0-31) U/L Alkaline Phosphatase 99 (39-117) U/L Troponin I High Sens (<3.5-17.0) ng/L Total Protein 7.5 (6.5-8.0) g/dL Albumin 4.5 (3.5-5.0) g/dL Lipase 14 (8-78) U/L 03/25/23 03/25/23 Range/Units 15:59 21:07 WBC (4.8-10.8) X10*3/uL RBC (4.20-5.50) X10*6/uL Hgb (12.0-16.0) g/dl Hct (37.0-47.0) % MCV (80.0-98.0) fL MCH (27.0-33.0) pg MCHC (31.0-35.0) g/dl RDW (11.0-16.0) % Plt Count (160-400) X10*3/uL MPV (9.4-12.3) fL Immature Gran % (Auto) (0.0-0.4) % Neut % (Auto) (45-73) % Lymph % (Auto) (20-40) % Traverse % (Auto) (2-11) % Eos % (Auto) (0-4) % Baso % (Auto) (0-2) % Lymph # (Auto) (1.2-4.9) X10*3/uL Traverse # (Auto) (0.1-1.2) X10*3/uL Eos # (Auto) (0.0-0.4) X10*3/uL Baso # (Auto) (0.0-0.2) X10*3/uL Abs Immat Gran (auto) (0.00-0.03) X10*3/uL Absolute Neuts (auto) (2.0-8.3) x10*3/uL Absolute Nucleated RBC (0.0-0.012) X10*3/uL Nucleated RBC % (auto) (0.0-0.2) /100WBC PT (10.0-13.1) SEC INR (0.9-1.1) Sodium (135-145) mmol/L Potassium (3.3-5.1) mmol/L Chloride (96-108) mmol/L Carbon Dioxide (22-29) mmol/L Anion Gap (12-20) BUN (9-16) mg/dL Creatinine (0.5-1.4) mg/dL Estim Creat Clear Calc Estimated GFR Random Glucose (60-115) mg/dL Lactic Acid 1.0 (0.5-2.0) mmol/L Calcium (8.4-10.2) mg/dL Magnesium (1.6-2.6) mg/dL Total Bilirubin (0.0-1.0) mg/dL Direct Bilirubin (0.0-0.5) mg/dL AST (5-31) U/L ALT (0-31) U/L Alkaline Phosphatase (39-117) U/L Troponin I High Sens < 2.7 (<3.5-17.0) ng/L Total Protein (6.5-8.0) g/dL Albumin (3.5-5.0) g/dL Lipase (8-78) U/L <Gustavo Romero MD - Last Filed: 03/25/23 22:51> Independent Interpretation I performed an independent interpretation of an: Ultrasound (no stones or pericholecystic fluid) <Gustavo Romero MD - Last Filed: 03/25/23 22:51> External Record Review External record reviewed: Outside ED record <Gustavo Romero MD - Last Filed: 03/25/23 22:51> Discharge Plan Discharge Clinical Impression: Right upper quadrant abdominal pain <KORTNEY Porter - Last Filed: 03/25/23 13:20> Patient Disposition: Home, Self-Care <KORTNEY Porter - Last Filed: 03/25/23 13:20> Instructions: Abdominal Pain (ED) <KORTNEY Porter - Last Filed: 03/25/23 13:20> Prescriptions: No Action oxybutynin chloride 10 mg tablet extended release 24hr 10 mg PO DAILY 90 Days Qty: 90 1RF azithromycin 250 mg tablet See Rx Instructions .ROUTE .COMPLEX Qty: 6 0RF Rx Instructions: For 250 mg dose pack: take 500 mg today (day 1), then 250 mg for 4 days (days 2-5) prednisone 20 mg tablet 40 mg PO DAILY Qty: 10 0RF ondansetron 4 mg tablet,disintegrating 4 mg PO Q6H PRN (Reason: nausea and vomiting) Qty: 10 0RF pantoprazole [Protonix] 40 mg tablet,delayed release (DR/EC) 40 mg PO DAILY Qty: 14 0RF duloxetine 60 mg capsule,delayed release(DR/EC) 60 mg PO DAILY lidocaine 4 % adhesive patch,medicated 1 patch topical DAILY PRN (Reason: Pain, Mild) Rx Instructions: may leave on for up to 12 hrs cyclobenzaprine 10 mg tablet 10 mg PO TID gabapentin 300 mg capsule 300 mg PO TID amlodipine 5 mg tablet 5 mg PO QAM nortriptyline 75 mg capsule 75 mg PO TID PRN (Reason: pain) pantoprazole 40 mg tablet,delayed release (DR/EC) 40 mg PO mirtazapine 30 mg tablet 30 mg PO BEDTIME sertraline 50 mg tablet 50 mg PO QAM buspirone 15 mg tablet 15 mg PO TID multivitamin Tablet 1 tab PO QAM simethicone 180 mg capsule 180 mg PO DAILY PRN (Reason: gas) tizanidine 4 mg tablet 4 mg PO Q6-8H PRN (Reason: Muscle Spasm) docusate sodium 100 mg capsule 100 mg PO BID albuterol sulfate [ProAir HFA] 90 mcg/actuation HFA aerosol inhaler 2 puff inhalation Q6H PRN (Reason: dyspnea) <KORTNEY Porter - Last Filed: 03/25/23 13:20> Referrals: Marisol Tatum MD [Primary Care Provider] - 3 days <KORTNEY Porter - Last Filed: 03/25/23 13:20>
[2023-03-25 16:05] LABS: MANUAL DIFF FLAG NO
[2023-03-25 16:06] LABS: Basophils Percent Auto 0.4 % (0-2); Eosinophils Absolute Auto 0.3 X10*3/uL (0.0-0.4); Eosinophils Percent Auto 2.5 % (0-4); Hematocrit 42.9 % (37.0-47.0); Hemoglobin 13.7 g/dl (12.0-16.0); Imm Gran Abs Auto 0.02 X10*3/uL (0.00-0.03); Imm Gran Pct Auto 0.2 % (0.0-0.4); Lymphocytes Absolute Auto 2.2 X10*3/uL (1.2-4.9); Lymphocytes Percent Auto 20.3 % (20-40); Mean Corpuscular HGB Conc 31.9 g/dl (31.0-35.0); Mean Corpuscular Hemoglobin 28.1 pg (27.0-33.0); Mean Corpuscular Volume 87.9 fL (80.0-98.0); Mean Platelet Volume 9.2 fL (9.4-12.3); Monocytes Absolute Auto 0.7 X10*3/uL (0.1-1.2); Monocytes Percent Auto 6.2 % (2-11); Neutrophils Absolute Auto 7.6 x10*3/uL (2.0-8.3); Neutrophils Percent Auto 70.4 % (45-73); Platelet Count 528 X10*3/uL (160-400); Red Blood Count 4.88 X10*6/uL (4.20-5.50); Red Cell Distribution Width 13.6 % (11.0-16.0); White Blood Count 10.8 X10*3/uL (4.8-10.8)
[2023-03-25 16:14] LABS: INTERNATIONAL NORM RATIO 0.9 (0.9-1.1); Prothrombin Time 10.7 SEC (10.0-13.1)
[2023-03-25 16:22] LABS: Alanine Aminotransferase 20 U/L (0-31); Albumin Level 4.5 g/dL (3.5-5.0); Alkaline Phosphatase 99 U/L (39-117); Anion Gap 15 (12-20); Aspartate Amino Transferase 18 U/L (5-31); Bilirubin Direct 0.1 mg/dL (0.0-0.5); Bilirubin Total 0.3 mg/dL (0.0-1.0); Blood Urea Nitrogen 9 mg/dL (9-16); Calcium 9.8 mg/dL (8.4-10.2); Carbon Dioxide 31 mmol/L (22-29); Chloride 104 mmol/L (96-108); Creatinine Clr Calc Pharmacy 76.1; Estimated Glomerular Filt Rate > 60; Glucose Random 92 mg/dL (60-115); Lipase 14 U/L (8-78); Magnesium 2.2 mg/dL (1.6-2.6); Potassium 4.5 mmol/L (3.3-5.1); Sodium 145 mmol/L (135-145); Total Protein 7.5 g/dL (6.5-8.0)
[2023-03-25 16:33] LABS: Troponin-I High Sensitivity < 2.7 ng/L (<3.5-17.0)
[2023-03-25 20:06] VITALS: BP 154/65; PULSE 125; RESP 16; TEMP 37.1; O2SAT 98
--- NOTE | 2023-03-25 20:25 | MHC.EDTECH ---
Pt made aware that a urine sample is needed. PT states she is unable to urinate and has not been able to urinate since 7:30 am DONNA Park made aware
[2023-03-25] MEDS: fentaNYL citrate/PF 100 MCG/2 ML VIAL 25 MCG IVPUSH (21:10)
[2023-03-25] MEDS: 0.9 % Sodium Chloride 1,000 ML 999 ML IV (21:10)
[2023-03-25] MEDS: HYDROmorphone HCl 0.5 MG/0.5 ML SYRINGE 0.25 MG IVPUSH (22:23)
[2023-03-25 22:47] VITALS: BP 134/67; PULSE 112; RESP 16; TEMP 36.8; O2SAT 97
== END 2023-03-25 23:28 | disposition home or self-care (01) ==
PROVIDERS: Physician Assistant; Student in an Organized Health Care Education/Training Program; Emergency Provider Emergency Medicine; PCP Family Medicine
DX: R10.11 Right upper quadrant pain (principal); F17.210 Nicotine dependence, cigarettes, uncomplicated; Z79.891 Long term (current) use of opiate analgesic; Z79.899 Other long term (current) drug therapy
CPT/HCPCS: 36415; 76705; 80048; 80076; 83605; 83690; 83735; 84484; 85025; 85610; 87040; 93005; 96361; 96374; 96375; 99284; 99285; J1170; J3010

== ENCOUNTER → 2023-03-29 09:38 | Outpatient (BNVA) | payer MEDICAID, SELFPAY | PROVIDERS: PCP Family Medicine; Visit Provider Surgery Vascular Surgery | DX: I83.11 Varicose veins of right lower extremity with inflammation (principal) | CPT/HCPCS: 36482 ==

== ENCOUNTER 2023-04-01 10:52 | Outpatient (REF) | payer MEDICAID, SELFPAY ==
--- NOTE | ~2023-04-01 | US_ITS ---
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 TECHNIQUE: Color flow triplex imaging and compression Doppler were performed as well as superficial ultrasound with Doppler. FINDINGS: RIGHT LOWER EXTREMITY DEEP VENOUS SYSTEM: Respiratory variation, normal compression and augmented flow are noted throughout the lower extremity. The visualized common femoral vein, femoral vein, profunda femoral vein, popliteal vein and the calf veins show no evidence of deep venous thrombosis. There is no evidence of Lakhani's cyst. SUPERFICIAL VENOUS SYSTEM: The great saphenous vein is occluded from the access site to 2.7 cm before the saphenofemoral junction. There is no extension of thrombus into the deep system. US/US venous duplex LE RT IMPRESSION: 1. No evidence of DVT. 2. Excellent appearance status post ablation of the right great saphenous vein.
== END 2023-04-01 10:53 | disposition home or self-care (01) ==
LOC: HO.US 10:52
PROVIDERS: PCP Family Medicine; Visit Provider Surgery Vascular Surgery
DX: M79.604 Pain in right leg (principal)
CPT/HCPCS: 93971

== ENCOUNTER → 2023-04-11 14:08 | Outpatient (BNVA) | payer MEDICAID, SELFPAY | PROVIDERS: PCP Family Medicine; Visit Provider Surgery Vascular Surgery | DX: I83.11 Varicose veins of right lower extremity with inflammation (principal); I83.12 Varicose veins of left lower extremity with inflammation; Z79.891 Long term (current) use of opiate analgesic | CPT/HCPCS: 99212 ==